=== PATIENT | female | born 1945 | race Caucasian/White ===

== ENCOUNTER 2019-12-25 10:50 | Inpatient (IN) | payer MEDICARE, BC ==
[~2019-12-25] VITALS: Ht 162.6 cm; Wt 59.0 kg
[2019-12-25 10:52] VITALS: BP 95/63
[2019-12-25 11:37] LABS: APPEARANCE,URINE SLIGHTLY CLOUDY; BILIRUBIN, URINE NEGATIVE (NEGATIVE); GLUCOSE, URINE (UA) NEGATIVE (NEGATIVE); KETONES,URINE 2+ (NEGATIVE); LEUKOCYTE ESTERASE ,URINE 2+ (NEGATIVE); NITRITE,URINE NEGATIVE (NEGATIVE); PH,URINE 7 (4.5-8.0); PROTEIN,URINE 2+ (NEGATIVE); UROBILINOGEN,URINE NORMAL MG/DL (0.0-1.0)
[2019-12-25 11:39] LABS: HEMATOCRIT 40.1 % (37.0-47.0); MEAN CORPUSCULAR VOLUME 92 FL (80-99); PLATELET COUNT 112 K/UL (150-450); RED BLOOD COUNT 4.37 M/UL (4.20-5.40); RED CELL DISTRIBUTION WIDTH 12.1 % (11.6-14.8)
[2019-12-25] MEDS ORDERED: TRAZODONE HCL50 MG ORAL (11:40)
[2019-12-25] MEDS ORDERED: QUETIAPINE FUMA50 MG ORAL (11:40)
[2019-12-25] MEDS ORDERED: TYLENOL EXTRA500 MG ORAL (11:40)
[2019-12-25] MEDS ORDERED: Acetaminophen 650 MG SUPP RECTAL ONE ×2 (11:41→11:45)
[2019-12-25 11:48] LABS: ANION GAP 11 mmol/L (5-15); BLOOD UREA NITROGEN 14 mg/dL (7-18); CALCIUM 9.4 MG/DL (8.5-10.1); CARBON DIOXIDE 27 MMOL/L (21-32); CHLORIDE 105 MMOL/L (98-107); CREATININE 0.8 MG/DL (0.55-1.30); POTASSIUM 3.5 MMOL/L (3.5-5.1); SODIUM 143 MMOL/L (136-145)
[2019-12-25 11:53] LABS: COLOR,URINE YELLOW
[2019-12-25] MEDS ORDERED: cefTRIAXone 2 GM in NS 55 ML IVPB ONE (12:00)
[2019-12-25] MEDS ORDERED: Azithromycin 500 MG in NS 275 ML IV ONE (12:00)
[2019-12-25 12:03] LABS: ALANINE AMINOTRANSFERASE 15 U/L (12-78); ALBUMIN 3.4 G/DL (3.4-5.0); ALBUMIN/GLOBULIN RATIO 1.2 (1.0-2.7); ALKALINE PHOSPHATASE 96 U/L (46-116); ASPARTATE AMINO TRANSFERASE 21 U/L (15-37); BILIRUBIN,TOTAL 1.1 MG/DL (0.2-1.0)
[2019-12-25 12:06] LABS: BILIRUBIN,DIRECT 0.3 MG/DL (0.0-0.3)
--- NOTE | 2019-12-25 12:37 | Diagnostic Imaging Report ---
FILM CXR 1 VIEW HISTORY: Cough TECHNIQUE: 1 view chest COMPARISON: None FINDINGS: Normal heart size. Tortuous thoracic aorta. Degenerative changes of the spine and shoulders. Mild bilateral lower lobe opacities. No effusion or pneumothorax. No fractures appreciated. IMPRESSION: Bilateral lower lobe atelectasis versus infiltrate.
[2019-12-25 12:40] VITALS: BP 112/78
--- NOTE | 2019-12-25 13:03 | Diagnostic Imaging Report ---
CT HEAD Without Contrast HISTORY: Altered mental status alteration of consciousness TECHNIQUE: One or more of the following dose reduction techniques were used: automated exposure control, adjustment of the mA and/or kV according to patient size, use of iterative reconstruction technique. One or more of the following dose reduction techniques were used: automated exposure control, adjustment of the mA and/or kV according to patient size, use of iterative reconstruction technique. Total Exam volume computed tomography dose index (CTDIvol) = 53.4 mGy and Dose Length Product (DLP) = 1045.5 mGY-c TECHNIQUE: Multiple, contiguous 2.5 mm axial cuts of the brain are obtained from the posterior fossa to the cranial vault. Coronal reformatted images provided. No IV contrast is administered. COMPARISON:none FINDINGS: No intracranial hemorrhage, abnormal intra- or extra-axial collections or parenchymal lesions are seen. There are involutional changes with prominence of the sulci, basal cisterns and ventricles. Scattered white matter hypoattenuations are present, likely from small vessel disease. The goldstein-white differentiation is preserved. No evidence of mass effect, midline shift, or edema. The osseous structures are unremarkable. The visualized portions of the paranasal sinuses are clear. IMPRESSION: 1. No acute intracranial process. 2. Involutional changes with small vessel disease.
[2019-12-25] MEDS: Ipratropium 0.02% Inh Soln 2.5ml UD HHN SCH ×2 (13:20→13:21)
[2019-12-25] MEDS: Albuterol ud Inhalation HHN SCH ×2 (13:20→13:21)
[2019-12-25 13:36] VITALS: BP 122/75
--- NOTE | 2019-12-25 14:02 | Emergency Room Report ---
History of Present Illness General Chief Complaint: Altered Mental Status Source: EMS Present Illness HPI Patient presents emergency department today with acute altered mental status. Patient stays at the [facility]. According to registration Dr. Love is not on staff at [facility]. Dr. Mcclelland is the preferred hospitalist for [facility]. Patient was noted to be a ltered today. Patient has had a fever on arrival. Patient was unable to provide any history. History was obtained for what ever medical records we have. According to the transfer paperwork patient does have a history of Alzheimer's disease. No other complaints were noted. Symptoms noted to be severe. No other modifying factors. No other associated signs and symptoms. No other complaints were noted. Allergies: Coded Allergies: No Known Allergies (Unverified , 12/25/19) COVID-19 Screening Contact w/high risk pt: No Recent Travel to affected area: No Experienced COVID-19 symptoms?: No COVID-19 Testing performed PATENT LITIGATION ASSOCIATE: No Patient History Past Medical History: other - Alzheimer's disease, depression, anxiety Past Surgical History: unable to obtain Pertinent Family History: unable to obtain Social History Narrative Stays at an assisted living facility. Reviewed Nursing Documentation: PMH: Agreed; PSxH: Agreed Nursing Documentation-PMH Past Medical History: No History, Except For Hx Cardiac Problems: No - OTHER HX NOT AVAILABLE Hx Gastrointestinal Problems: No - hyperlipidemia, hypothyroidism Hx Neurological Problems: Yes - Alzheimers, anxiety, depression Review of Systems All Other Systems: limited - Due to patient's poor mental status Physical Exam Vital Signs Date Time Temp Pulse Resp B/P (MAP) Pulse Ox O2 Delivery O2 Flow Rate FiO2 12/25/19 10:42 99.0 92 16 95/63 (74) 96 Room Air Sp02 EP Interpretation: reviewed, normal General Appearance: alert, moderate distress - Confused, thin Head: atraumatic Eyes: bilateral eye normal inspection ENT: normal ENT inspection, moist mucus membranes Neck: normal inspection, supple Respiratory: normal inspection, decreased breath sounds, crackles - Basilar Cardiovascular #1: regular rate, rhythm, no edema Gastrointestinal: normal inspection, normal bowel sounds, soft Genitourinary: no CVA tenderness Musculoskeletal: normal inspection, normal range of motion Neurologic: alert, other - Grossly nonfocal but unable to fully assess due to patient's poor mental status Psychiatric: anxious Skin: no rash Medical Decision Making Diagnostic Impression: Primary Impression: Altered mental status Additional Impression: Sepsis ER Course Patient presents emergency department today with acute altered mental status. Differential considerations includes sepsis, pneumonia, UTI, electro abnormality, CVA just name a few. Given the severity of the patient's presentation I felt this is a highly complex patient. This patient required extensive workup. Patient laboratory work-up shows evidence of a UTI. Chest x-ray is questionable for pneumonia. Given patient presentation I felt that this could be contributing patient's altered mental status patient was started on broad- spectrum IV antibiotics and blood culture was obtained. Patient's lactic acid level was less than 2 therefore there is no evidence of severe sepsis organ failure. We will continue to monitor patient. Patient had a head CT was noted be negative by radiology. Case was discussed with Dr. Mcclelland for admission. Patient will be admitted for further management. Labs Test 12/25/19 11:10 White Blood Count 10.0 K/UL (4.8-10.8) Red Blood Count 4.37 M/UL (4.20-5.40) Hemoglobin 14.0 G/DL (12.0-16.0) Hematocrit 40.1 % (37.0-47.0) Mean Corpuscular Volume 92 FL (80-99) Mean Corpuscular Hemoglobin 31.9 PG (27.0-31.0) Mean Corpuscular Hemoglobin Concent 34.8 G/DL (32.0-36.0) Red Cell Distribution Width 12.1 % (11.6-14.8) Platelet Count 112 K/UL (150-450) Mean Platelet Volume 8.1 FL (6.5-10.1) Neutrophils (%) (Auto) % (45.0-75.0) Lymphocytes (%) (Auto) % (20.0-45.0) Monocytes (%) (Auto) % (1.0-10.0) Eosinophils (%) (Auto) % (0.0-3.0) Basophils (%) (Auto) % (0.0-2.0) Differential Total Cells Counted 100 Neutrophils % (Manual) 84 % (45-75) Lymphocytes % (Manual) 9 % (20-45) Monocytes % (Manual) 7 % (1-10) Eosinophils % (Manual) 0 % (0-3) Basophils % (Manual) 0 % (0-2) Band Neutrophils 0 % (0-8) Platelet Estimate Decreased Platelet Morphology Normal Red Blood Cell Morphology Normal Urine Color Yellow Urine Appearance Slightly cloudy Urine pH 7 (4.5-8.0) Urine Specific Lyle 1.010 (1.005-1.035) Urine Protein 2+ (NEGATIVE) Urine Glucose (UA) Negative (NEGATIVE) Urine Ketones 2+ (NEGATIVE) Urine Blood 5+ (NEGATIVE) Urine Nitrite Negative (NEGATIVE) Urine Bilirubin Negative (NEGATIVE) Urine Urobilinogen Normal MG/DL (0.0-1.0) Urine Leukocyte Esterase 2+ (NEGATIVE) Urine RBC 15-20 /HPF (0 - 2) Urine WBC 30-40 /HPF (0 - 2) Urine Squamous Epithelial Cells Moderate /LPF (NONE/OCC) Urine Transitional Epithelial Cells /LPF (NONE) Urine Calcium Oxalate Crystals Few /LPF (NONE) Urine Bacteria Few /HPF (NONE) Sodium Level 143 MMOL/L (136-145) Potassium Level 3.5 MMOL/L (3.5-5.1) Chloride Level 105 MMOL/L (98-107) Carbon Dioxide Level 27 MMOL/L (21-32) Anion Gap 11 mmol/L (5-15) Blood Urea Nitrogen 14 mg/dL (7-18) Creatinine 0.8 MG/DL (0.55-1.30) Estimat Glomerular Filtration Rate > 60 mL/min (>60) Glucose Level 101 MG/DL (74-106) Lactic Acid Level 1.30 mmol/L (0.4-2.0) Calcium Level 9.4 MG/DL (8.5-10.1) Total Bilirubin 1.1 MG/DL (0.2-1.0) Direct Bilirubin 0.3 MG/DL (0.0-0.3) Aspartate Amino Transf (AST/SGOT) 21 U/L (15-37) Alanine Aminotransferase (ALT/SGPT) 15 U/L (12-78) Alkaline Phosphatase 96 U/L (46-116) Troponin I 0.000 ng/mL (0.000-0.056) Pro-B-Type Natriuretic Peptide 1027 pg/mL (0-125) Total Protein 6.2 G/DL (6.4-8.2) Albumin 3.4 G/DL (3.4-5.0) Globulin 2.8 g/dL Albumin/Globulin Ratio 1.2 (1.0-2.7) Lipase 60 U/L (73-393) EKG Diagnostic Results Troponin ordered: Yes Rate: normal, other - 90s Rhythm: NSR ST Segments: no acute changes Rhythm Strip Diag. Results EP Interpretation: yes Rate: 90s Rhythm: NSR, no PVC's, no ectopy Chest X-Ray Diagnostic Results Chest X-Ray Diagnostic Results : Chest X-Ray Ordered: Yes # of Views/Limited/Complete: 1 View Indication: Shortness of Breath EP Interpretation: Yes Interpretation: no effusion, no pneumothorax, other - Basilar infiltrates Impression: Other - Early pneumonia Electronically Signed by: Electronically signed by Demian Dimas MD CT/MRI/US Diagnostic Results CT/MRI/US Diagnostic Results : Imaging Test Ordered: Head CT: Negative per radiology Last Vital Signs Date Time Temp Pulse Resp B/P (MAP) Pulse Ox O2 Delivery O2 Flow Rate FiO2 12/25/19 13:36 100.0 82 15 122/75 100 Room Air Status: improved Disposition: ADMITTED INPATIENT Condition: Serious Referrals: NON PHYSICIAN (PCP) Demian Dimas MD Dec 25, 2019 14:02
[2019-12-25 16:00] VITALS: BP 110/55
[2019-12-25] MEDS ORDERED: Albuterol/Ipratropium 3ml neb HHN PRN (16:30)
[2019-12-25] MEDS ORDERED: Miralax 17gm pkt ORAL PRN (16:30)
[2019-12-25] MEDS ORDERED: ATORVASTATIN CA40 MG ORAL (16:51)
[2019-12-25] MEDS ORDERED: LEXAPRO10 MG ORAL (16:51)
[2019-12-25] MEDS ORDERED: SYNTHROID25 MCG ORAL (16:52)
[2019-12-25] MEDS ORDERED: GABAPENTIN100 MG ORAL (16:52)
[2019-12-25] MEDS ORDERED: NAMENDA10 MG ORAL (16:54)
[2019-12-25] MEDS ORDERED: EXELON9.5 MG TD (16:56)
[2019-12-25] MEDS ORDERED: SENNA8.6 M2 PO (16:56)
[2019-12-25] MEDS ORDERED: TRAMADOL HCL50 MG ORAL (16:58)
[2019-12-25] MEDS: Vancomycin 1 GM in NS 275 ML IVPB SCH (18:23)
[2019-12-25 20:00] VITALS: BP 105/85
[2019-12-25] MEDS: TraZODone HCl 25 mg tablet ORAL SCH (21:29)
[2019-12-25] MEDS: Cefepime HCl 1 GM in D5W 55 ML IVPB SCH (21:31)
[2019-12-26] VITALS: BP 105/85
[2019-12-26 04:00] VITALS: BP 149/52
[2019-12-26 08:00] VITALS: BP 112/55
[2019-12-26] MEDS: Cefepime HCl 1 GM in D5W 55 ML IVPB SCH ×2 (08:20→23:04)
[2019-12-26] MEDS ORDERED: Varibar Nectar 240ml MC PRN (08:30)
[2019-12-26] MEDS ORDERED: Varibar Honey 250ml MC PRN (08:30)
[2019-12-26] MEDS ORDERED: Varibar Pudding 230ml MC PRN (08:30)
[2019-12-26] MEDS ORDERED: Varibar Thin Liquid powder 148gm MC PRN (08:30)
[2019-12-26 10:05] LABS: HEMATOCRIT 41.6 % (37.0-47.0); MEAN CORPUSCULAR VOLUME 93 FL (80-99); PLATELET COUNT 112 K/UL (150-450); RED BLOOD COUNT 4.48 M/UL (4.20-5.40); RED CELL DISTRIBUTION WIDTH 11.7 % (11.6-14.8); WHITE BLOOD COUNT 9.3 K/UL (4.8-10.8)
[2019-12-26 10:35] LABS: ALANINE AMINOTRANSFERASE 14 U/L (12-78); ALBUMIN 3.1 G/DL (3.4-5.0); ALBUMIN/GLOBULIN RATIO 0.9 (1.0-2.7); ALKALINE PHOSPHATASE 83 U/L (46-116); ANION GAP 13 mmol/L (5-15); ASPARTATE AMINO TRANSFERASE 19 U/L (15-37); BILIRUBIN,TOTAL 1.5 MG/DL (0.2-1.0); BLOOD UREA NITROGEN 19 mg/dL (7-18); CALCIUM 9.2 MG/DL (8.5-10.1); CARBON DIOXIDE 24 MMOL/L (21-32); CHLORIDE 108 MMOL/L (98-107); CREATININE 0.9 MG/DL (0.55-1.30); POTASSIUM 3.3 MMOL/L (3.5-5.1); SODIUM 145 MMOL/L (136-145)
[2019-12-26 10:36] LABS: BILIRUBIN,DIRECT 0.3 MG/DL (0.0-0.3)
--- NOTE | 2019-12-26 11:22 | History and Physical ---
History of Present Illness General Date patient seen: Dec 26, 2019 Reason for Hospitalization: Altered Mental Status Present Illness HPI 74 year old female with hx of Alzheimer's, Depression, anxiety presented to emergency department today with acute altered mental status. .Patient has had a fever on arrival in ER. She was unable to provide any history. No other complaints were noted. She is admitted to telemetry for further management. Allergies: Coded Allergies: No Known Allergies (Unverified , 12/25/19) COVID-19 Screening Contact w/high risk pt: No Recent Travel to affected area: No Experienced COVID-19 symptoms?: No Medication History Scheduled Atorvastatin Calcium* (Atorvastatin Calcium*), 40 MG ORAL BEDTIME, (Reported) Escitalopram Oxalate* (Lexapro*), 10 MG ORAL DAILY, (Reported) Gabapentin* (Gabapentin*), 100 MG ORAL THREE TIMES A DAY, (Reported) Levothyroxine Sodium* (Synthroid*), 50 MCG ORAL HS, (Reported) Memantine Hcl* (Namenda*), 10 MG ORAL DAILY, (Reported) Quetiapine Fumarate* (Quetiapine Fumarate*), 25 MG ORAL DAILY, (Reported) Rivastigmine Tartrate (Exelon), 13.3 MG TD DAILY, (Reported) Sennosides (Senna), 8.6 MG PO HS, (Reported) Tramadol Hcl* (Ultram*), 50 MG ORAL TWICE A DAY, (Reported) Trazodone Hcl* (Desyrel*), 25 MG ORAL BEDTIME, (Reported) Scheduled PRN Acetaminophen* (Tylenol Extra Strength*), 500 MG ORAL Q6H PRN for fever, (Reported) Patient History Healthcare decision maker Resuscitation status Advanced Directive on File Yes Past Medical/Surgical History Past Medical/Surgical History: (1) Alzheimer's dementia (2) Depression (3) Anxiety (4) Poor historian Review of Systems All Other Systems: negative except mentioned in HPI Physical Exam General Appearance: cachetic, thin Lines, tubes and drains: peripheral HEENT: normocephalic, atraumatic, anicteric, mucous membranes moist, PERRL Neck: non-tender, normal alignment, supple, normal inspection Respiratory/Chest: chest wall non-tender, lungs clear, normal breath sounds, no respiratory distress Breasts: no masses Cardiovascular/Chest: normal peripheral pulses, normal rate, regular rhythm Abdomen: normal bowel sounds, non tender, soft Genitourinary/Rectal: normal genital exam Extremities: normal range of motion, non-tender Neurologic: tumbler plater II-XII grossly normal Last 24 Hour Vital Signs Date Time Temp Pulse Resp B/P (MAP) Pulse Ox O2 Delivery O2 Flow Rate FiO2 12/26/19 09:00 Room Air 12/26/19 08:00 100.2 95 18 112/55 (74) 96 12/26/19 08:00 94 12/26/19 05:30 100.8 12/26/19 04:00 85 12/26/19 04:00 101.8 90 24 149/52 (84) 93 12/26/19 00:00 99.1 86 24 105/85 (92) 96 12/26/19 00:00 80 12/25/19 21:00 Room Air 12/25/19 20:00 85 12/25/19 20:00 98.8 84 22 105/85 (92) 97 12/25/19 19:27 85 20 96 Room Air 21 12/25/19 17:01 Room Air 12/25/19 16:00 98.1 101 18 110/55 (73) 98 12/25/19 16:00 89 12/25/19 14:28 100.0 86 19 118/73 97 Room Air 12/25/19 13:51 101 18 100 Room Air 21 82 18 95 12/25/19 13:36 100.0 82 15 122/75 100 Room Air 12/25/19 13:35 100.0 12/25/19 12:40 87 16 112/78 99 Room Air Intake and Output 12/25/19 12/26/19 19:00 07:00 Intake Total 330 ml Balance 330 ml Intake IV Total 330 ml # Voids 1 2 Laboratory Tests Test 12/26/19 09:25 White Blood Count 9.3 K/UL (4.8-10.8) Red Blood Count 4.48 M/UL (4.20-5.40) Hemoglobin 14.0 G/DL (12.0-16.0) Hematocrit 41.6 % (37.0-47.0) Mean Corpuscular Volume 93 FL (80-99) Mean Corpuscular Hemoglobin 31.2 PG (27.0-31.0) H Mean Corpuscular Hemoglobin Concent 33.5 G/DL (32.0-36.0) Red Cell Distribution Width 11.7 % (11.6-14.8) Platelet Count 112 K/UL (150-450) L Mean Platelet Volume 8.1 FL (6.5-10.1) Neutrophils (%) (Auto) % (45.0-75.0) Lymphocytes (%) (Auto) % (20.0-45.0) Monocytes (%) (Auto) % (1.0-10.0) Eosinophils (%) (Auto) % (0.0-3.0) Basophils (%) (Auto) % (0.0-2.0) Differential Total Cells Counted 100 Neutrophils % (Manual) 70 % (45-75) Lymphocytes % (Manual) 7 % (20-45) L Monocytes % (Manual) 7 % (1-10) Eosinophils % (Manual) 0 % (0-3) Basophils % (Manual) 0 % (0-2) Band Neutrophils 16 % (0-8) H Platelet Estimate Decreased L Platelet Morphology Normal Sodium Level 145 MMOL/L (136-145) Potassium Level 3.3 MMOL/L (3.5-5.1) L Chloride Level 108 MMOL/L (98-107) H Carbon Dioxide Level 24 MMOL/L (21-32) Anion Gap 13 mmol/L (5-15) Blood Urea Nitrogen 19 mg/dL (7-18) H Creatinine 0.9 MG/DL (0.55-1.30) Estimat Glomerular Filtration Rate > 60 mL/min (>60) Glucose Level 117 MG/DL (74-106) H Calcium Level 9.2 MG/DL (8.5-10.1) Total Bilirubin 1.5 MG/DL (0.2-1.0) H Direct Bilirubin 0.3 MG/DL (0.0-0.3) Aspartate Amino Transf (AST/SGOT) 19 U/L (15-37) Alanine Aminotransferase (ALT/SGPT) 14 U/L (12-78) Alkaline Phosphatase 83 U/L (46-116) Total Protein 6.4 G/DL (6.4-8.2) Albumin 3.1 G/DL (3.4-5.0) L Globulin 3.3 g/dL Albumin/Globulin Ratio 0.9 (1.0-2.7) L Microbiology Date/Time Source Procedure Growth Status 12/25/19 11:45 Nasal Nares - Final Complete 12/25/19 11:45 Nasal Nares - Final Complete 12/25/19 11:20 Rectum Received Height (Feet): 5 Height (Inches): 4.00 Weight (Pounds): 130 Medications Current Medications Medications (Trade) Dose Ordered Sig/Kimberley Route PRN Reason Start Time Stop Time Status Last Admin Dose Admin Acetaminophen (Tylenol) 650 mg Q4H PRN ORAL fever 12/25/19 16:30 01/24/20 16:29 12/26/19 04:48 Albuterol/ Ipratropium (Albuterol/ Ipratropium) 3 ml Q4H PRN HHN Shortness of Breath 12/25/19 16:30 12/30/19 16:29 Barium Sulfate (Varibar Honey) 250 ml NOW PRN MC RAD 12/26/19 08:30 12/29/19 08:22 Barium Sulfate (Varibar [place]) 240 ml NOW PRN MC RAD 12/26/19 08:30 12/29/19 08:22 Barium Sulfate (Varibar Pudding) 230 ml NOW PRN MC RAD 12/26/19 08:30 12/29/19 08:22 Barium Sulfate (Varibar Thin Liquid powder) 148 gm NOW PRN MC RAD 12/26/19 08:30 12/29/19 08:22 Cefepime HCl 1 gm/ Dextrose 55 ml @ 110 mls/hr EVERY 12 HOURS IVPB 12/25/19 21:00 01/01/20 20:59 12/26/19 08:20 Heparin Sodium (Porcine) (Heparin 5000 units/ml) 5,000 units EVERY 12 HOURS SUBQ 12/26/19 09:00 02/09/20 08:59 Ondansetron HCl (Zofran) 4 mg Q6H PRN IVP Nausea & Vomiting 12/25/19 16:30 01/24/20 16:29 Polyethylene Glycol (Miralax) 17 gm DAILYPRN PRN ORAL Constipation 12/25/19 16:30 01/24/20 16:29 Quetiapine Fumarate (SEROqueL) 25 mg DAILY ORAL 12/26/19 09:00 02/09/20 08:59 12/26/19 09:18 Temazepam (Restoril) 15 mg HSPRN PRN ORAL Insomnia 12/25/19 16:30 01/01/20 16:29 Trazodone HCl (Desyrel) 25 mg BEDTIME ORAL 12/25/19 21:00 01/24/20 20:59 12/25/19 21:29 Vancomycin HCl (Vanco pharmacy to dose) 1 ea DAILY PRN MISC per RX protocol 12/26/19 09:30 01/25/20 09:29 Vancomycin HCl 1 gm/Sodium Chloride 275 ml @ 183.299 mls/hr Q24H IVPB 12/25/19 18:00 12/30/19 17:59 12/25/19 18:23 Assessment/Plan Problem List: (1) Altered mental status ICD Codes: R41.82 - Altered mental status, unspecified SNOMED: 444245724 (2) Sepsis ICD Codes: A41.9 - Sepsis, unspecified organism SNOMED: 19848460 (3) Anxiety ICD Codes: F41.9 - Anxiety disorder, unspecified SNOMED: 01430286 (4) Depression ICD Codes: F32.9 - Major depressive disorder, single episode, unspecified SNOMED: 50990836 (5) Alzheimer's dementia ICD Codes: G30.9 - Alzheimer's disease, unspecified; F02.80 - Dementia in other diseases classified elsewhere without behavioral disturbance SNOMED: 75824801 (6) Poor historian ICD Codes: Z78.9 - Other specified health status SNOMED: 346395458 Assessment/Plan: NPO iv fluids andujar culture iv abx ID evaluation check electrolytes symptomatic treatment swallow evaluation. dvt prophylaxis. Ck Mcclelland MD Dec 26, 2019 11:22
[2019-12-26 12:00] VITALS: BP 141/68
[2019-12-26] MEDS: Heparin 5000 units/ml inj SUBQ SCH ×2 (12:26→20:37)
[2019-12-26] MEDS: Potassium Chloride 10 MEQ in D5 1/2NS 1,000 ML IV SCH (14:15)
--- NOTE | 2019-12-26 15:04 | Consultation ---
History of Present Illness General Date patient seen: Dec 26, 2019 Chief Complaint: Altered Mental Status Present Illness HPI 74 y/o F with hx of Alzheimer' disease, MDD, HLD, hypothyroidism, anxiety disorder, SNF resident ([facility]) presented to ED on 12/24 with altered mental status, fever Allergies: Coded Allergies: No Known Allergies (Unverified , 12/25/19) Medication History Scheduled Atorvastatin Calcium* (Atorvastatin Calcium*), 40 MG ORAL BEDTIME, (Reported) Escitalopram Oxalate* (Lexapro*), 10 MG ORAL DAILY, (Reported) Gabapentin* (Gabapentin*), 100 MG ORAL THREE TIMES A DAY, (Reported) Levothyroxine Sodium* (Synthroid*), 50 MCG ORAL HS, (Reported) Memantine Hcl* (Namenda*), 10 MG ORAL DAILY, (Reported) Quetiapine Fumarate* (Quetiapine Fumarate*), 25 MG ORAL DAILY, (Reported) Rivastigmine Tartrate (Exelon), 13.3 MG TD DAILY, (Reported) Sennosides (Senna), 8.6 MG PO HS, (Reported) Tramadol Hcl* (Ultram*), 50 MG ORAL TWICE A DAY, (Reported) Trazodone Hcl* (Desyrel*), 25 MG ORAL BEDTIME, (Reported) Scheduled PRN Acetaminophen* (Tylenol Extra Strength*), 500 MG ORAL Q6H PRN for fever, (Reported) Patient History Healthcare decision maker Resuscitation status Advanced Directive on File Yes Patient History Narrative Pmhx: as above Shx: reviewed Fhx: non contributory Review of Systems All Other Systems: negative except mentioned in HPI Physical Exam Physical Exam Narrative General Appearance: alert, moderate distress - Confused, thin Head: atraumatic Eyes: bilateral eye normal inspection ENT: normal ENT inspection, moist mucus membranes Neck: normal inspection, supple Respiratory: normal inspection, decreased breath sounds, crackles - Basilar Cardiovascular #1: regular rate, rhythm, no edema Gastrointestinal: normal inspection, normal bowel sounds, soft Genitourinary: no CVA tenderness Musculoskeletal: normal inspection, normal range of motion Neurologic: alert, other - Grossly nonfocal but unable to fully assess due to patient's poor mental status Skin: no rash Last 24 Hour Vital Signs Date Time Temp Pulse Resp B/P (MAP) Pulse Ox O2 Delivery O2 Flow Rate FiO2 12/26/19 12:00 91 12/26/19 12:00 99.7 94 18 141/68 (92) 95 12/26/19 09:00 Room Air 12/26/19 08:00 100.2 95 18 112/55 (74) 96 12/26/19 08:00 94 12/26/19 05:30 100.8 12/26/19 04:00 85 12/26/19 04:00 101.8 90 24 149/52 (84) 93 12/26/19 00:00 99.1 86 24 105/85 (92) 96 12/26/19 00:00 80 12/25/19 21:00 Room Air 12/25/19 20:00 85 12/25/19 20:00 98.8 84 22 105/85 (92) 97 12/25/19 19:27 85 20 96 Room Air 21 12/25/19 17:01 Room Air 12/25/19 16:00 98.1 101 18 110/55 (73) 98 12/25/19 16:00 89 Intake and Output 12/25/19 12/26/19 19:00 07:00 Intake Total 330 ml Balance 330 ml Intake IV Total 330 ml # Voids 1 2 Laboratory Tests Test 12/26/19 09:25 White Blood Count 9.3 K/UL (4.8-10.8) Red Blood Count 4.48 M/UL (4.20-5.40) Hemoglobin 14.0 G/DL (12.0-16.0) Hematocrit 41.6 % (37.0-47.0) Mean Corpuscular Volume 93 FL (80-99) Mean Corpuscular Hemoglobin 31.2 PG (27.0-31.0) H Mean Corpuscular Hemoglobin Concent 33.5 G/DL (32.0-36.0) Red Cell Distribution Width 11.7 % (11.6-14.8) Platelet Count 112 K/UL (150-450) L Mean Platelet Volume 8.1 FL (6.5-10.1) Neutrophils (%) (Auto) % (45.0-75.0) Lymphocytes (%) (Auto) % (20.0-45.0) Monocytes (%) (Auto) % (1.0-10.0) Eosinophils (%) (Auto) % (0.0-3.0) Basophils (%) (Auto) % (0.0-2.0) Differential Total Cells Counted 100 Neutrophils % (Manual) 70 % (45-75) Lymphocytes % (Manual) 7 % (20-45) L Monocytes % (Manual) 7 % (1-10) Eosinophils % (Manual) 0 % (0-3) Basophils % (Manual) 0 % (0-2) Band Neutrophils 16 % (0-8) H Platelet Estimate Decreased L Platelet Morphology Normal Sodium Level 145 MMOL/L (136-145) Potassium Level 3.3 MMOL/L (3.5-5.1) L Chloride Level 108 MMOL/L (98-107) H Carbon Dioxide Level 24 MMOL/L (21-32) Anion Gap 13 mmol/L (5-15) Blood Urea Nitrogen 19 mg/dL (7-18) H Creatinine 0.9 MG/DL (0.55-1.30) Estimat Glomerular Filtration Rate > 60 mL/min (>60) Glucose Level 117 MG/DL (74-106) H Calcium Level 9.2 MG/DL (8.5-10.1) Total Bilirubin 1.5 MG/DL (0.2-1.0) H Direct Bilirubin 0.3 MG/DL (0.0-0.3) Aspartate Amino Transf (AST/SGOT) 19 U/L (15-37) Alanine Aminotransferase (ALT/SGPT) 14 U/L (12-78) Alkaline Phosphatase 83 U/L (46-116) Total Protein 6.4 G/DL (6.4-8.2) Albumin 3.1 G/DL (3.4-5.0) L Globulin 3.3 g/dL Albumin/Globulin Ratio 0.9 (1.0-2.7) L Height (Feet): 5 Height (Inches): 4.00 Weight (Pounds): 130 Medications Current Medications Medications (Trade) Dose Ordered Sig/Kimberley Route PRN Reason Start Time Stop Time Status Last Admin Dose Admin Acetaminophen (Tylenol) 650 mg Q4H PRN ORAL fever 12/25/19 16:30 01/24/20 16:29 12/26/19 04:48 Albuterol/ Ipratropium (Albuterol/ Ipratropium) 3 ml Q4H PRN HHN Shortness of Breath 12/25/19 16:30 12/30/19 16:29 Barium Sulfate (Varibar Honey) 250 ml NOW PRN MC RAD 12/26/19 08:30 12/29/19 08:22 Barium Sulfate (Varibar [place]) 240 ml NOW PRN RAD 12/26/19 08:30 12/29/19 08:22 Barium Sulfate (Varibar Pudding) 230 ml NOW PRN RAD 12/26/19 08:30 12/29/19 08:22 Barium Sulfate (Varibar Thin Liquid powder) 148 gm NOW PRN RAD 12/26/19 08:30 12/29/19 08:22 Cefepime HCl 1 gm/ Dextrose 55 ml @ 110 mls/hr EVERY 12 HOURS IVPB 12/25/19 21:00 01/01/20 20:59 12/26/19 08:20 Heparin Sodium (Porcine) (Heparin 5000 units/ml) 5,000 units EVERY 12 HOURS SUBQ 12/26/19 09:00 02/09/20 08:59 12/26/19 12:26 Ondansetron HCl (Zofran) 4 mg Q6H PRN IVP Nausea & Vomiting 12/25/19 16:30 01/24/20 16:29 Potassium Chloride 10 meq/ Dextrose/Sodium Chloride 1,005 ml @ 50 mls/hr Q20H6M IV 12/26/19 13:00 01/25/20 12:59 12/26/19 14:15 Quetiapine Fumarate (SEROqueL) 25 mg DAILY ORAL 12/26/19 09:00 02/09/20 08:59 12/26/19 09:18 Temazepam (Restoril) 15 mg HSPRN PRN ORAL Insomnia 12/25/19 16:30 01/01/20 16:29 Trazodone HCl (Desyrel) 25 mg BEDTIME ORAL 12/25/19 21:00 01/24/20 20:59 12/25/19 21:29 Vancomycin HCl (Vanco pharmacy to dose) 1 ea DAILY PRN MISC per RX protocol 12/26/19 09:30 01/25/20 09:29 Vancomycin HCl 1 gm/Sodium Chloride 275 ml @ 183.299 mls/hr Q24H IVPB 12/25/19 18:00 12/30/19 17:59 12/25/19 18:23 Assessment/Plan Assessment/Plan: Abx: Ceftriaxone x1 12/24 Azithromycin x1 12/24 IV Vancomycin 12/24- Cefepime 12/24- Assessment: Sepsis UTI Probable PNA- report of bright red blood upon suctioning per RN R/o probable bacteremia -12/24 CXR: Bilateral lower lobe atelectasis versus infiltrate. u/a 30-40, nit neg, leuk +2; ucx p rapid COVID PCR neg Influenza screen neg Fever No leukocytosis Acute encephalopathy -CT head: No acute intracranial process.nvolutional changes with small vessel disease. Alzheimer' disease MDD HLD hypothyroidism anxiety disorder SNF resident ([facility]) Plan: -Continue empiric IV Vancomycin and Cefepime #2 pending cultures -f/u cx -Monitor CBC/CMP, temperatures -CXR am -repeat 2nd covid -CTA Chest Thank you for consulting [facility]. Will continue to follow along with you. Discussed with MARCOS. Aneta Camacho M.D. Dec 26, 2019 15:04
[2019-12-26 16:00] VITALS: BP 118/42
[2019-12-26] MEDS: Acetaminophen 650 MG SUPP RECTAL PRN ×2 (16:20→23:13)
[2019-12-26] MEDS ORDERED: Omnipaque 350 100ml vial INJ PRN (16:45)
[2019-12-26] MEDS ORDERED: Tubing IV Secondary IV ONE (17:22)
[2019-12-26] MEDS ORDERED: NS 275ml ONE (17:22)
[2019-12-26] MEDS ORDERED: VITAMIN D325 MC1 PO (18:02)
[2019-12-26] MEDS ORDERED: VITAMIN D250 MC1 PO (18:02)
[2019-12-26] MEDS ORDERED: QUETIAPINE FUMA25 MG ORAL (18:02)
[2019-12-26] MEDS ORDERED: SYNTHROID50 MCG ORAL (18:02)
[2019-12-26] MEDS ORDERED: LOPERAMIDE2 MG PO (18:02)
[2019-12-26] MEDS ORDERED: METHENAMINE HIPP PO (18:02)
[2019-12-26] MEDS ORDERED: ENSURE LIQUID237 ML PO (18:02)
[2019-12-26] MEDS ORDERED: VOLTAREN100 G1 TP (18:02)
[2019-12-26] MEDS ORDERED: PANTOPRAZOLE SO40 MG ORAL (18:02)
[2019-12-26] MEDS ORDERED: MIRALAX17 G2 ORAL (18:02)
[2019-12-26 20:00] VITALS: BP 146/64
[2019-12-26] MEDS: TraZODone HCl 25 mg tablet ORAL SCH (20:36)
[2019-12-26] MEDS: Vancomycin 1 GM in NS 275 ML IVPB SCH (20:40)
--- NOTE | 2019-12-26 21:10 | Diagnostic Imaging Report ---
EXAM: CT Angiography Chest With Intravenous Contrast CLINICAL HISTORY: BLD TECHNIQUE: Axial computed tomographic angiography images of the chest with intravenous contrast. CTDI is 47.7 mGy and DLP is 153.9 mGy-cm. One or more of the following dose reduction techniques were used: automated exposure control, adjustment of the mA and/or kV according to patient size, use of iterative reconstruction technique. MIP reconstructed images were created and reviewed. COMPARISON: No relevant prior studies available. FINDINGS: Pulmonary arteries: Enhancement is not very robust and there is some motion. No apparent central pulmonary embolus. Aorta: Assessment limited due to pulsation artifact Lungs: Bibasilar consolidation. Irregular opacities/nodular infiltrates in the lingula, right middle and right lower lobes. Pleural space: No effusion. No pneumothorax. Heart: No cardiomegaly. No pericardial effusion. Thyroid: Heterogeneous thyroid gland with possibly small nodule in the right lobe Bones/joints: No acute fracture. Soft tissues: Unremarkable. Lymph nodes: No enlarged lymph nodes. IMPRESSION: 1. Enhancement is not very robust and there is some motion. No apparent central pulmonary embolus. 2. Bibasilar consolidation. Irregular opacities/nodular infiltrates in the lingula, right middle and right lower lobes.
[2019-12-27] VITALS: BP 139/60
[2019-12-27 04:00] VITALS: BP 143/61
[2019-12-27 07:05] LABS: HEMATOCRIT 40.9 % (37.0-47.0); HEMOGLOBIN 13.6 G/DL (12.0-16.0); MEAN CORPUSCULAR VOLUME 95 FL (80-99); PLATELET COUNT 128 K/UL (150-450); RED BLOOD COUNT 4.32 M/UL (4.20-5.40); RED CELL DISTRIBUTION WIDTH 12.2 % (11.6-14.8); WHITE BLOOD COUNT 10.5 K/UL (4.8-10.8)
[2019-12-27 07:47] LABS: ALBUMIN 2.9 G/DL (3.4-5.0); ALBUMIN/GLOBULIN RATIO 0.8 (1.0-2.7); BILIRUBIN,TOTAL 1.5 MG/DL (0.2-1.0); CALCIUM 9.7 MG/DL (8.5-10.1); PHOSPHORUS 2.1 MG/DL (2.5-4.9); POTASSIUM 3.4 MMOL/L (3.5-5.1)
[2019-12-27 07:49] LABS: BILIRUBIN,DIRECT 0.4 MG/DL (0.0-0.3)
[2019-12-27 08:00] VITALS: BP 132/56
[2019-12-27] MEDS: Cefepime HCl 1 GM in D5W 55 ML IVPB SCH ×2 (09:33→21:42)
[2019-12-27] MEDS: Potassium Chloride 10 MEQ in D5 1/2NS 1,000 ML IV SCH (09:37)
[2019-12-27] MEDS: Heparin 5000 units/ml inj SUBQ SCH ×2 (09:37→21:45)
--- NOTE | 2019-12-27 10:11 | Diagnostic Imaging Report ---
Indication: Cough Technique: One view of the chest Comparison: 12/25/2019 Findings: The lungs and pleural spaces are clear. The heart size is normal. Findings are unchanged Impression: No acute process
[2019-12-27 11:02] LABS: APPEARANCE,URINE SLIGHTLY CLOUDY; BILIRUBIN, URINE NEGATIVE (NEGATIVE); COLOR,URINE BROWN; GLUCOSE, URINE (UA) NEGATIVE (NEGATIVE); KETONES,URINE 2+ (NEGATIVE); LEUKOCYTE ESTERASE ,URINE 1+ (NEGATIVE); NITRITE,URINE POSITIVE (NEGATIVE); PH,URINE 5 (4.5-8.0); PROTEIN,URINE 3+ (NEGATIVE); UROBILINOGEN,URINE NORMAL MG/DL (0.0-1.0)
--- NOTE | 2019-12-27 11:26 | Pulmonology Progress Note ---
Subjective ROS Limited/Unobtainable: No Constitutional: Reports: no symptoms HEENT: Repors: no symptoms Respiratory: Reports: no symptoms Allergies: Coded Allergies: MORPHINE (Verified Allergy, Unknown, 12/26/19) Patient's SNF notes morphine allergy in RX list Objective Last 24 Hour Vital Signs Date Time Temp Pulse Resp B/P (MAP) Pulse Ox O2 Delivery O2 Flow Rate FiO2 12/27/19 08:00 99.3 71 20 132/56 (81) 98 12/27/19 07:57 73 12/27/19 04:00 97.9 77 20 143/61 (88) 93 12/27/19 04:00 76 12/27/19 00:00 99.1 77 20 139/60 (86) 92 12/27/19 00:00 86 12/26/19 23:43 99.1 12/26/19 21:00 Room Air 12/26/19 20:34 88 20 96 Room Air 21 12/26/19 20:00 83 12/26/19 20:00 100.6 89 18 146/64 (91) 92 12/26/19 16:50 102.0 12/26/19 16:00 92 12/26/19 16:00 102.2 88 18 118/42 (67) 95 12/26/19 12:00 91 12/26/19 12:00 99.7 94 18 141/68 (92) 95 Intake and Output 12/26/19 12/27/19 19:00 07:00 Output Total 350 ml 400 ml Balance -350 ml -400 ml Output Urine Total 350 ml 400 ml # Bowel Movements 2 2 General Appearance: cachetic HEENT: normocephalic, atraumatic Respiratory: chest wall non-tender, lungs clear, normal breath sounds Breasts: no masses Cardiovascular: normal peripheral pulses Abdomen: normal bowel sounds, soft, non tender Genitourinary: normal external genitalia Extremities: no cyanosis Neurologic: pigment grinder II-XII 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 Complete 12/25/19 11:20 Rectum VRE Culture - Final NO VANCOMYCIN RESISTANT ENTEROCOCCUS ... Complete 12/25/19 11:20 Nasal Nares MRSA Culture - Final NO METHICILLIN RESISTANT STAPH AUREUS... Complete 12/25/19 11:10 Urine,Clean Catch Urine Culture - Preliminary NO GROWTH AFTER 24 HOURS Resulted 12/25/19 11:10 Nasopharynx SARS-CoV-2 RdRp Gene Assay - Final Complete Laboratory Tests 12/27/19 05:35: White Blood Count 10.5, Red Blood Count 4.32, Hemoglobin 13.6, Hematocrit 40.9, Mean Corpuscular Volume 95, Mean Corpuscular Hemoglobin 31.4H, Mean Corpuscular Hemoglobin Concent 33.2, Red Cell Distribution Width 12.2, Platelet Count 128L, Mean Platelet Volume 9.0, Neutrophils (%) (Auto) , Lymphocytes (%) (Auto) , Monocytes (%) (Auto) , Eosinophils (%) (Auto) , Basophils (%) (Auto) , Differential Total Cells Counted 100, Neutrophils % (Manual) 49, Lymphocytes % (Manual) 8L, Monocytes % (Manual) 15H, Eosinophils % (Manual) 0, Basophils % (Manual) 0, Band Neutrophils 28H, Platelet Estimate DecreasedL, Platelet Morphology Normal, Red Blood Cell Morphology Normal, Erythrocyte Sedimentation Rate 45H, Sodium Level 145, Potassium Level 3.4L, Chloride Level 109H, Carbon Dioxide Level 27, Anion Gap 9, Blood Urea Nitrogen 24H, Creatinine 1.0, Estimat Glomerular Filtration Rate 53.9, Glucose Level 107H, Calcium Level 9.7, Phosphorus Level 2.1L, Magnesium Level 1.9, Total Bilirubin 1.5H, Direct Bilirubin 0.4H, Aspartate Amino Transf (AST/SGOT) 25, Alanine Aminotransferase (ALT/SGPT) 8L, Alkaline Phosphatase 88, C-Reactive Protein, Quantitative 26.0H, Total Protein 6.5, Albumin 2.9L, Globulin 3.6, Albumin/Globulin Ratio 0.8L 12/27/19 10:15: Urine Color Brown, Urine Appearance Slightly cloudy, Urine pH 5, Urine Specific [place] 1.015, Urine Protein 3+H, Urine Glucose (UA) Negative, Urine Ketones 2+H , Urine Blood 4+H, Urine Nitrite PositiveH, Urine Bilirubin Negative, Urine Urobilinogen Normal, Urine Leukocyte Esterase 1+H, Urine RBC 2-4H, Urine WBC 0- 2, Urine Squamous Epithelial Cells None, Urine Bacteria ManyH Current Medications Medications (Trade) Dose Ordered Sig/Kimberley Route PRN Reason Start Time Stop Time Status Last Admin Dose Admin Acetaminophen (Tylenol) 650 mg Q4H PRN ORAL fever 12/25/19 16:30 01/24/20 16:29 12/26/19 04:48 Acetaminophen (Tylenol) 650 mg Q4H PRN RECTAL Mild Pain (Pain Scale 1-3) 12/26/19 15:30 01/25/20 15:29 12/26/19 23:13 Albuterol/ Ipratropium (Albuterol/ Ipratropium) 3 ml Q4H PRN HHN Shortness of Breath 12/25/19 16:30 12/30/19 16:29 Barium Sulfate (Varibar Honey) 250 ml NOW PRN MC RAD 12/26/19 08:30 12/29/19 08:22 Barium Sulfate (Varibar [place]) 240 ml NOW PRN MC RAD 12/26/19 08:30 12/29/19 08:22 Barium Sulfate (Varibar Pudding) 230 ml NOW PRN MC RAD 12/26/19 08:30 12/29/19 08:22 Barium Sulfate (Varibar Thin Liquid powder) 148 gm NOW PRN MC RAD 12/26/19 08:30 12/29/19 08:22 Cefepime HCl 1 gm/ Dextrose 55 ml @ 110 mls/hr EVERY 12 HOURS IVPB 12/25/19 21:00 01/01/20 20:59 12/27/19 09:33 Heparin Sodium (Porcine) (Heparin 5000 units/ml) 5,000 units EVERY 12 HOURS SUBQ 12/26/19 09:00 02/09/20 08:59 12/27/19 09:37 Iohexol (Omnipaque 350 100ml) 100 ml NOW PRN INJ Radiology Procedure 12/26/19 16:45 12/28/19 16:44 Ondansetron HCl (Zofran) 4 mg Q6H PRN IVP Nausea & Vomiting 12/25/19 16:30 01/24/20 16:29 Potassium Chloride 10 meq/ Dextrose/Sodium Chloride 1,005 ml @ 50 mls/hr Q20H6M IV 12/26/19 13:00 01/25/20 12:59 12/27/19 09:37 Quetiapine Fumarate (SEROqueL) 25 mg DAILY ORAL 12/26/19 09:00 02/09/20 08:59 12/27/19 09:33 Temazepam (Restoril) 15 mg HSPRN PRN ORAL Insomnia 12/25/19 16:30 01/01/20 16:29 Trazodone HCl (Desyrel) 25 mg BEDTIME ORAL 12/25/19 21:00 01/24/20 20:59 12/25/19 21:29 Vancomycin HCl (Vanco pharmacy to dose) 1 ea DAILY PRN MISC per RX protocol 12/26/19 09:30 01/25/20 09:29 Vancomycin HCl 1 gm/Sodium Chloride 275 ml @ 183.299 mls/hr Q24H IVPB 12/25/19 18:00 12/30/19 17:59 12/26/19 20:40 Assessment/Plan Problems: (1) Altered mental status (2) Sepsis (3) Anxiety (4) Depression (5) Alzheimer's dementia (6) Poor historian Assessment/Plan NPO iv fluids andujar culture iv abx ID evaluation check electrolytes symptomatic treatment swallow evaluation. dvt prophylaxis. d/w son extensively, pt's POLST says no artificial feeding Ck Mcclelland MD Dec 27, 2019 11:25
[2019-12-27 12:00] VITALS: BP 132/61
--- NOTE | 2019-12-27 12:16 | Infectious Diseases Prog Note ---
Assessment/Plan Assessment: Sepsis UTI PNA- report of bright red blood upon suctioning per RN- no PE- l ikely aspiration PNA -12/25 CTA chest: Enhancement is not very robust and there is some motion. No apparent central pulmonary embolus. Bibasilar consolidation. Irregular opacities/nodular infiltrates in the lingula, right middle and right lower lobes. rapid COVID PCR neg R/o probable bacteremia -12/24 CXR: Bilateral lower lobe atelectasis versus infiltrate. u/a 30-40, nit neg, leuk +2; ucx NTD rapid COVID PCR neg Influenza screen neg Bcx p Fever; imporving No leukocytosis Acute encephalopathy -CT head: No acute intracranial process.nvolutional changes with small vessel disease. Alzheimer' disease MDD HLD hypothyroidism anxiety disorder SNF resident (trevor Tos[facility]) Plan: -Continue empiric IV Vancomycin and Cefepime #3 pending cultures -12/24 SP Ceftriaxone x1, Azithromycin x1 -f/u cx -Monitor CBC/CMP, temperatures -sp cx, TB spot -aspiration precautions -DNR/DNI Thank you for consulting [facility]. Will continue to follow along with you. Discussed with RN. Subjective Allergies: Coded Allergies: MORPHINE (Verified Allergy, Unknown, 12/26/19) Patient's SNF notes morphine allergy in RX list Tm 102; afebrile in 12hrs on venturi mask had bright red blood while suctioning yesterday no leukocytosis Objective Last 24 Hour Vital Signs Date Time Temp Pulse Resp B/P (MAP) Pulse Ox O2 Delivery O2 Flow Rate FiO2 12/27/19 08:00 99.3 71 20 132/56 (81) 98 12/27/19 07:57 73 12/27/19 04:00 97.9 77 20 143/61 (88) 93 12/27/19 04:00 76 12/27/19 00:00 99.1 77 20 139/60 (86) 92 12/27/19 00:00 86 12/26/19 23:43 99.1 12/26/19 21:00 Room Air 12/26/19 20:34 88 20 96 Room Air 21 12/26/19 20:00 83 12/26/19 20:00 100.6 89 18 146/64 (91) 92 12/26/19 16:50 102.0 12/26/19 16:00 92 12/26/19 16:00 102.2 88 18 118/42 (67) 95 Height (Feet): 5 Height (Inches): 4.00 Weight (Pounds): 130 General Appearance: alert, moderate distress - Confused, thin Head: atraumatic Eyes: bilateral eye normal inspection ENT: normal ENT inspection, moist mucus membranes Neck: normal inspection, supple Respiratory: normal inspection, decreased breath sounds, crackles - Basilar Cardiovascular #1: regular rate, rhythm, no edema Gastrointestinal: normal inspection, normal bowel sounds, soft Microbiology Date/Time Source Procedure Growth Status 12/26/19 15:30 Nasopharynx SARS-CoV-2 RdRp Gene Assay - Final Complete 12/25/19 11:45 Nasal Nares - Final Complete 12/25/19 11:45 Nasal Nares - Final Complete 12/25/19 11:20 Rectum - Final NO CARBAPENEM-RESISTANT ENTEROBACTERI... Complete 12/25/19 11:20 Rectum VRE Culture - Final NO VANCOMYCIN RESISTANT ENTEROCOCCUS ... Complete 12/25/19 11:20 Nasal Nares MRSA Culture - Final NO METHICILLIN RESISTANT STAPH AUREUS... Complete 12/25/19 11:10 Urine,Clean Catch Urine Culture - Preliminary NO GROWTH AFTER 24 HOURS Resulted 12/25/19 11:10 Nasopharynx SARS-CoV-2 RdRp Gene Assay - Final Complete Laboratory Tests Test 12/27/19 05:35 12/27/19 10:15 White Blood Count 10.5 K/UL (4.8-10.8) Red Blood Count 4.32 M/UL (4.20-5.40) Hemoglobin 13.6 G/DL (12.0-16.0) Hematocrit 40.9 % (37.0-47.0) Mean Corpuscular Volume 95 FL (80-99) Mean Corpuscular Hemoglobin 31.4 PG (27.0-31.0) H Mean Corpuscular Hemoglobin Concent 33.2 G/DL (32.0-36.0) Red Cell Distribution Width 12.2 % (11.6-14.8) Platelet Count 128 K/UL (150-450) L Mean Platelet Volume 9.0 FL (6.5-10.1) Neutrophils (%) (Auto) % (45.0-75.0) Lymphocytes (%) (Auto) % (20.0-45.0) Monocytes (%) (Auto) % (1.0-10.0) Eosinophils (%) (Auto) % (0.0-3.0) Basophils (%) (Auto) % (0.0-2.0) Differential Total Cells Counted 100 Neutrophils % (Manual) 49 % (45-75) Lymphocytes % (Manual) 8 % (20-45) L Monocytes % (Manual) 15 % (1-10) H Eosinophils % (Manual) 0 % (0-3) Basophils % (Manual) 0 % (0-2) Band Neutrophils 28 % (0-8) H Platelet Estimate Decreased L Platelet Morphology Normal Red Blood Cell Morphology Normal Erythrocyte Sedimentation Rate 45 MM/HR (0-30) H Sodium Level 145 MMOL/L (136-145) Potassium Level 3.4 MMOL/L (3.5-5.1) L Chloride Level 109 MMOL/L (98-107) H Carbon Dioxide Level 27 MMOL/L (21-32) Anion Gap 9 mmol/L (5-15) Blood Urea Nitrogen 24 mg/dL (7-18) H Creatinine 1.0 MG/DL (0.55-1.30) Estimat Glomerular Filtration Rate 53.9 mL/min (>60) Glucose Level 107 MG/DL (74-106) H Calcium Level 9.7 MG/DL (8.5-10.1) Phosphorus Level 2.1 MG/DL (2.5-4.9) L Magnesium Level 1.9 MG/DL (1.8-2.4) Total Bilirubin 1.5 MG/DL (0.2-1.0) H Direct Bilirubin 0.4 MG/DL (0.0-0.3) H Aspartate Amino Transf (AST/SGOT) 25 U/L (15-37) Alanine Aminotransferase (ALT/SGPT) 8 U/L (12-78) L Alkaline Phosphatase 88 U/L (46-116) C-Reactive Protein, Quantitative 26.0 mg/dL (0.00-0.90) H Total Protein 6.5 G/DL (6.4-8.2) Albumin 2.9 G/DL (3.4-5.0) L Globulin 3.6 g/dL Albumin/Globulin Ratio 0.8 (1.0-2.7) L Urine Color Brown Urine Appearance Slightly cloudy Urine pH 5 (4.5-8.0) Urine Specific [place] 1.015 (1.005-1.035) Urine Protein 3+ (NEGATIVE) H Urine Glucose (UA) Negative (NEGATIVE) Urine Ketones 2+ (NEGATIVE) H Urine Blood 4+ (NEGATIVE) H Urine Nitrite Positive (NEGATIVE) H Urine Bilirubin Negative (NEGATIVE) Urine Urobilinogen Normal MG/DL (0.0-1.0) Urine Leukocyte Esterase 1+ (NEGATIVE) H Urine RBC 2-4 /HPF (0 - 2) H Urine WBC 0-2 /HPF (0 - 2) Urine Squamous Epithelial Cells None /LPF (NONE/OCC) Urine Bacteria Many /HPF (NONE) H Current Medications Medications (Trade) Dose Ordered Sig/Kimberley Route PRN Reason Start Time Stop Time Status Last Admin Dose Admin Acetaminophen (Tylenol) 650 mg Q4H PRN ORAL fever 12/25/19 16:30 01/24/20 16:29 12/26/19 04:48 Acetaminophen (Tylenol) 650 mg Q4H PRN RECTAL Mild Pain (Pain Scale 1-3) 12/26/19 15:30 01/25/20 15:29 12/26/19 23:13 Albuterol/ Ipratropium (Albuterol/ Ipratropium) 3 ml Q4H PRN HHN Shortness of Breath 12/25/19 16:30 12/30/19 16:29 Barium Sulfate (Varibar Honey) 250 ml NOW PRN MC RAD 12/26/19 08:30 12/29/19 08:22 Barium Sulfate (Varibar [place]) 240 ml NOW PRN MC RAD 12/26/19 08:30 12/29/19 08:22 Barium Sulfate (Varibar Pudding) 230 ml NOW PRN MC RAD 12/26/19 08:30 12/29/19 08:22 Barium Sulfate (Varibar Thin Liquid powder) 148 gm NOW PRN MC RAD 12/26/19 08:30 12/29/19 08:22 Cefepime HCl 1 gm/ Dextrose 55 ml @ 110 mls/hr EVERY 12 HOURS IVPB 12/25/19 21:00 01/01/20 20:59 12/27/19 09:33 Heparin Sodium (Porcine) (Heparin 5000 units/ml) 5,000 units EVERY 12 HOURS SUBQ 12/26/19 09:00 02/09/20 08:59 12/27/19 09:37 Iohexol (Omnipaque 350 100ml) 100 ml NOW PRN INJ Radiology Procedure 12/26/19 16:45 12/28/19 16:44 Ondansetron HCl (Zofran) 4 mg Q6H PRN IVP Nausea & Vomiting 12/25/19 16:30 01/24/20 16:29 Potassium Chloride 10 meq/ Dextrose/Sodium Chloride 1,005 ml @ 50 mls/hr Q20H6M IV 12/26/19 13:00 01/25/20 12:59 12/27/19 09:37 Quetiapine Fumarate (SEROqueL) 25 mg DAILY ORAL 12/26/19 09:00 02/09/20 08:59 12/27/19 09:33 Temazepam (Restoril) 15 mg HSPRN PRN ORAL Insomnia 12/25/19 16:30 01/01/20 16:29 Trazodone HCl (Desyrel) 25 mg BEDTIME ORAL 12/25/19 21:00 01/24/20 20:59 12/25/19 21:29 Vancomycin HCl (Vanco pharmacy to dose) 1 ea DAILY PRN MISC per RX protocol 12/26/19 09:30 01/25/20 09:29 Vancomycin HCl 1 gm/Sodium Chloride 275 ml @ 183.299 mls/hr Q24H IVPB 12/25/19 18:00 12/30/19 17:59 12/26/19 20:40 Aneta Camacho M.D. Dec 27, 2019 12:16
[2019-12-27 16:00] VITALS: BP 134/59
[2019-12-27] MEDS: Acetaminophen 650 MG SUPP RECTAL PRN (16:31)
[2019-12-27] MEDS: Vancomycin 1 GM in NS 275 ML IVPB SCH (17:44)
[2019-12-27] MEDS: Ketorolac 30mg Inj IV PRN (18:10)
[2019-12-27 20:00] VITALS: BP 120/55
[2019-12-27] MEDS: TraZODone HCl 25 mg tablet ORAL SCH (21:42)
[2019-12-27] MEDS ORDERED: LORazepam Inj 2mg/ml 1ml IV PRN (22:00)
[2019-12-28] VITALS: BP 134/67
[2019-12-28 04:00] VITALS: BP 140/65
[2019-12-28] MEDS: Potassium Chloride 10 MEQ in D5 1/2NS 1,000 ML IV SCH (05:05)
[2019-12-28 08:00] VITALS: BP 113/58
[2019-12-28] MEDS: Cefepime HCl 1 GM in D5W 55 ML IVPB SCH ×2 (09:26→20:59)
[2019-12-28] MEDS: Heparin 5000 units/ml inj SUBQ SCH ×2 (09:28→21:08)
[2019-12-28 10:06] LABS: ANION GAP 6 mmol/L (5-15); BLOOD UREA NITROGEN 23 mg/dL (7-18); CALCIUM 9.1 MG/DL (8.5-10.1); CARBON DIOXIDE 28 MMOL/L (21-32); CHLORIDE 112 MMOL/L (98-107); CREATININE 0.8 MG/DL (0.55-1.30); POTASSIUM 3.3 MMOL/L (3.5-5.1); SODIUM 146 MMOL/L (136-145)
[2019-12-28 10:10] LABS: ALANINE AMINOTRANSFERASE 14 U/L (12-78); ALBUMIN 2.4 G/DL (3.4-5.0); ALBUMIN/GLOBULIN RATIO 0.7 (1.0-2.7); ALKALINE PHOSPHATASE 81 U/L (46-116); ASPARTATE AMINO TRANSFERASE 17 U/L (15-37); BILIRUBIN,TOTAL 0.8 MG/DL (0.2-1.0); PHOSPHORUS 1.6 MG/DL (2.5-4.9)
--- NOTE | 2019-12-28 10:57 | Pulmonology Progress Note ---
Subjective ROS Limited/Unobtainable: No Constitutional: Reports: no symptoms HEENT: Repors: no symptoms Respiratory: Reports: no symptoms Allergies: Coded Allergies: MORPHINE (Verified Allergy, Unknown, 12/26/19) Patient's SNF notes morphine allergy in RX list Objective Last 24 Hour Vital Signs Date Time Temp Pulse Resp B/P (MAP) Pulse Ox O2 Delivery O2 Flow Rate FiO2 12/28/19 09:52 Venturi Mask 10.0 12/28/19 08:09 68 19 98 Venturi Mask 10.0 50 12/28/19 08:00 97.7 58 19 113/58 (76) 95 12/28/19 06:02 76 20 136/76 99 12/28/19 05:32 79 20 145/88 96 12/28/19 04:00 97.7 79 20 140/65 (90) 96 12/28/19 00:00 97.5 70 21 134/67 (89) 98 12/27/19 21:00 Venturi Mask 10.0 12/27/19 20:00 97.0 67 22 120/55 (76) 97 12/27/19 17:01 100.8 12/27/19 16:00 102.6 84 20 134/59 (84) 96 12/27/19 15:47 76 12/27/19 12:00 99.7 76 20 132/61 (84) 97 12/27/19 11:36 74 Intake and Output 12/27/19 12/28/19 19:00 07:00 Intake Total 733.299 ml 91.701 ml Balance 733.299 ml 91.701 ml Intake IV Total 733.299 ml 91.701 ml # Voids 2 2 # Bowel Movements 1 1 General Appearance: cachetic HEENT: normocephalic, atraumatic Respiratory: chest wall non-tender, lungs clear, normal breath sounds Breasts: no masses Cardiovascular: normal peripheral pulses Abdomen: normal bowel sounds, soft, non tender Genitourinary: normal external genitalia Extremities: no cyanosis Neurologic: ironmolder II-XII 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 Complete 12/25/19 11:20 Rectum VRE Culture - Final NO VANCOMYCIN RESISTANT ENTEROCOCCUS ... Complete 12/25/19 11:20 Nasal Nares MRSA Culture - Final NO METHICILLIN RESISTANT STAPH AUREUS... Complete 12/25/19 11:10 Urine,Clean Catch Urine Culture - Final Mixed Urogenital Contaminants Complete 12/25/19 11:10 Nasopharynx SARS-CoV-2 RdRp Gene Assay - Final Complete Laboratory Tests 12/28/19 06:15: Sodium Level 146H, Potassium Level 3.3L, Chloride Level 112H, Carbon Dioxide Level 28, Anion Gap 6, Blood Urea Nitrogen 23H, Creatinine 0.8, Estimat Glomerular Filtration Rate > 60, Glucose Level 97, Calcium Level 9.1, Phosphorus Level 1.6L, Magnesium Level 1.9, Total Bilirubin 0.8, Aspartate Amino Transf (AST/SGOT) 17, Alanine Aminotransferase (ALT/SGPT) 14, Alkaline Phosphatase 81, Total Protein 5.9L, Albumin 2.4L, Globulin 3.5, Albumin/Globulin Ratio 0.7L, TB Test (T-Spot) [Pending], TB Test Nil Control (T-Spot) [Pending], TB Test Panel A (T-Spot) [Pending], TB Test Panel B (T-Spot) [Pending], TB Test Positive Control (T-Spot) [Pending] Current Medications Medications (Trade) Dose Ordered Sig/Kimberley Route PRN Reason Start Time Stop Time Status Last Admin Dose Admin Acetaminophen (Tylenol) 650 mg Q4H PRN ORAL fever 12/25/19 16:30 01/24/20 16:29 12/26/19 04:48 Acetaminophen (Tylenol) 650 mg Q4H PRN RECTAL Mild Pain (Pain Scale 1-3) 12/26/19 15:30 01/25/20 15:29 12/27/19 16:31 Albuterol/ Ipratropium (Albuterol/ Ipratropium) 3 ml Q4H PRN HHN Shortness of Breath 12/25/19 16:30 12/30/19 16:29 Barium Sulfate (Varibar Honey) 250 ml NOW PRN RAD 12/26/19 08:30 12/29/19 08:22 Barium Sulfate (Varibar [place]) 240 ml NOW PRN MC RAD 12/26/19 08:30 12/29/19 08:22 Barium Sulfate (Varibar Pudding) 230 ml NOW PRN RAD 12/26/19 08:30 12/29/19 08:22 Barium Sulfate (Varibar Thin Liquid powder) 148 gm NOW PRN RAD 12/26/19 08:30 12/29/19 08:22 Cefepime HCl 1 gm/ Dextrose 55 ml @ 110 mls/hr EVERY 12 HOURS IVPB 12/25/19 21:00 01/01/20 20:59 12/28/19 09:26 Heparin Sodium (Porcine) (Heparin 5000 units/ml) 5,000 units EVERY 12 HOURS SUBQ 12/26/19 09:00 02/09/20 08:59 12/28/19 09:28 Iohexol (Omnipaque 350 100ml) 100 ml NOW PRN INJ Radiology Procedure 12/26/19 16:45 12/28/19 16:44 Ketorolac Tromethamine (Toradol 30mg) 15 mg Q6H PRN IV pain 12/27/19 18:00 01/01/20 17:59 12/27/19 18:10 Lorazepam (Ativan 2mg/ml 1ml) 0.5 mg EVERY HOUR PRN IV For Anxiety 12/27/19 22:00 01/03/20 21:59 12/28/19 05:32 Ondansetron HCl (Zofran) 4 mg Q6H PRN IVP Nausea & Vomiting 12/25/19 16:30 01/24/20 16:29 Potassium Chloride 10 meq/ Dextrose/Sodium Chloride 1,005 ml @ 50 mls/hr Q20H6M IV 12/26/19 13:00 01/25/20 12:59 12/28/19 05:05 Quetiapine Fumarate (SEROqueL) 25 mg DAILY ORAL 12/26/19 09:00 02/09/20 08:59 12/27/19 09:33 Temazepam (Restoril) 15 mg HSPRN PRN ORAL Insomnia 12/25/19 16:30 01/01/20 16:29 Trazodone HCl (Desyrel) 25 mg BEDTIME ORAL 12/25/19 21:00 01/24/20 20:59 12/27/19 21:42 Vancomycin HCl (Vanco pharmacy to dose) 1 ea DAILY PRN MISC per RX protocol 12/26/19 09:30 01/25/20 09:29 Vancomycin HCl 1 gm/Sodium Chloride 275 ml @ 183.299 mls/hr Q24H IVPB 12/25/19 18:00 12/30/19 17:59 12/27/19 17:44 Assessment/Plan Problems: (1) Altered mental status (2) Sepsis (3) Anxiety (4) Depression (5) Alzheimer's dementia (6) Poor historian Assessment/Plan d/w son at the bed site about feeding options. He will talk to his other brother and let us know about short term NG tube feeding NPO iv fluids andujar culture iv abx still febrile check electrolytes symptomatic treatment swallow evaluation. dvt prophylaxis. d/w son extensively, pt's POLST says no artificial feeding Ck Mcclelland MD Dec 28, 2019 10:57
[2019-12-28 12:00] VITALS: BP 152/68
--- NOTE | 2019-12-28 12:14 | Consultation ---
Consult Note Consult Note I am asked to evaluate the patient at the request of Dr. Serna for fluid and electrolyte management Day 3 of hospitalization Emergency room note: Patient presents emergency department today with acute altered mental status. Patient stays at the [facility]. According to registration Dr. Love is not on staff at [facility]. Dr. Mcclelland is the preferred hospitalist for [facility]. Patient was noted to be altered today. Patient has had a fever on arrival. Patient was unable to provide any history. History was obtained for what ever medical records we have. According to the transfer paperwork patient does have a history of Alzheimer's disease. No other complaints were noted. Symptoms noted to be severe. No other modifying factors. No other associated signs and symptoms. No other complaints were noted. Allergies: No Known Allergies (Unverified , 12/25/19) COVID-19 Screening Contact w/high risk pt: No Recent Travel to affected area: No Experienced COVID-19 symptoms?: No COVID-19 Testing performed HAND TUFTER: No Past Medical History: other - Alzheimer's disease, depression, anxiety hyperlipidemia, hypothyroidism Past Medical History: No History, Except For Hx Cardiac Problems: No - OTHER HX NOT AVAILABLE Hx Gastrointestinal Problems: No - hyperlipidemia, hypothyroidism Hx Neurological Problems: Yes - Alzheimers, anxiety, depression General Appearance: alert, moderate distress - Confused, thin Head: atraumatic Eyes: bilateral eye normal inspection ENT: normal ENT inspection, moist mucus membranes Neck: normal inspection, supple Respiratory: normal inspection, decreased breath sounds, crackles - Basilar Cardiovascular #1: regular rate, rhythm, no edema Gastrointestinal: normal inspection, normal bowel sounds, soft Genitourinary: no CVA tenderness Musculoskeletal: normal inspection, normal range of motion Neurologic: alert, other - Grossly nonfocal but unable to fully assess due to patient's poor mental status Skin: no rash . Assessment/Plan Electrolyte imbalance Toxic metabolic encephalopathy Sepsis Alzheimer's dementia, depression, anxiety K-Phos IV Antibiotics Patient DNR/DNI No artificial means of feeding at this time Continue current care Daniel Mathews MD Dec 28, 2019 12:14
--- NOTE | 2019-12-28 12:16 | Infectious Diseases Prog Note ---
Assessment/Plan Assessment: Sepsis UTI PNA- report of bright red blood upon suctioning per RN- no PE- l ikely aspiration PNA -12/25 CTA chest: Enhancement is not very robust and there is some motion. No apparent central pulmonary embolus. Bibasilar consolidation. Irregular opacities/nodular infiltrates in the lingula, right middle and right lower lobes. rapid COVID PCR neg R/o probable bacteremia -12/24 CXR: Bilateral lower lobe atelectasis versus infiltrate. u/a 30-40, nit neg, leuk +2; ucx Organism 1 MIXED UROGENITAL CONTAMINANTS COLONY COUNT: 10,000 - 20,000 CFU/ML rapid COVID PCR neg Influenza screen neg Bcx p Fever; imporving No leukocytosis Acute encephalopathy -CT head: No acute intracranial process.nvolutional changes with small vessel disease. Alzheimer' disease MDD HLD hypothyroidism anxiety disorder [facility] Plan: -Continue empiric IV Vancomycin and Cefepime #4 pending cultures -12/24 SP Ceftriaxone x1, Azithromycin x1 -f/u cx -Monitor CBC/CMP, temperatures -f/u sp cx, TB spot -aspiration precautions -DNR/DNI Thank you for consulting [facility]. Will continue to follow along with you. Discussed with RN. Subjective Allergies: Coded Allergies: MORPHINE (Verified Allergy, Unknown, 12/26/19) Patient's SNF notes morphine allergy in RX list Tm 102.8;a febrile >12hs remains on VM Bcx p Objective Last 24 Hour Vital Signs Date Time Temp Pulse Resp B/P (MAP) Pulse Ox O2 Delivery O2 Flow Rate FiO2 12/28/19 09:52 Venturi Mask 10.0 12/28/19 08:09 68 19 98 Venturi Mask 10.0 50 12/28/19 08:00 97.7 58 19 113/58 (76) 95 12/28/19 06:02 76 20 136/76 99 12/28/19 05:32 79 20 145/88 96 12/28/19 04:00 97.7 79 20 140/65 (90) 96 12/28/19 00:00 97.5 70 21 134/67 (89) 98 12/27/19 21:00 Venturi Mask 10.0 12/27/19 20:00 97.0 67 22 120/55 (76) 97 12/27/19 17:01 100.8 12/27/19 16:00 102.6 84 20 134/59 (84) 96 12/27/19 15:47 76 Height (Feet): 5 Height (Inches): 4.00 Weight (Pounds): 130 General Appearance: alert, moderate distress - Confused, thin Head: atraumatic Eyes: bilateral eye normal inspection ENT: normal ENT inspection, moist mucus membranes Neck: normal inspection, supple Respiratory: normal inspection, decreased breath sounds, crackles - Basilar Cardiovascular #1: regular rate, rhythm, no edema Gastrointestinal: normal inspection, normal bowel sounds, soft Microbiology Date/Time Source Procedure Growth Status 12/26/19 15:30 Nasopharynx SARS-CoV-2 RdRp Gene Assay - Final Complete Laboratory Tests Test 12/28/19 06:15 Sodium Level 146 MMOL/L (136-145) H Potassium Level 3.3 MMOL/L (3.5-5.1) L Chloride Level 112 MMOL/L (98-107) H Carbon Dioxide Level 28 MMOL/L (21-32) Anion Gap 6 mmol/L (5-15) Blood Urea Nitrogen 23 mg/dL (7-18) H Creatinine 0.8 MG/DL (0.55-1.30) Estimat Glomerular Filtration Rate > 60 mL/min (>60) Glucose Level 97 MG/DL (74-106) Calcium Level 9.1 MG/DL (8.5-10.1) Phosphorus Level 1.6 MG/DL (2.5-4.9) L Magnesium Level 1.9 MG/DL (1.8-2.4) Total Bilirubin 0.8 MG/DL (0.2-1.0) Aspartate Amino Transf (AST/SGOT) 17 U/L (15-37) Alanine Aminotransferase (ALT/SGPT) 14 U/L (12-78) Alkaline Phosphatase 81 U/L (46-116) Total Protein 5.9 G/DL (6.4-8.2) L Albumin 2.4 G/DL (3.4-5.0) L Globulin 3.5 g/dL Albumin/Globulin Ratio 0.7 (1.0-2.7) L TB Test (T-Spot) Pending TB Test Nil Control (T-Spot) Pending TB Test Panel A (T-Spot) Pending TB Test Panel B (T-Spot) Pending TB Test Positive Control (T-Spot) Pending Current Medications Medications (Trade) Dose Ordered Sig/Kimberely Route PRN Reason Start Time Stop Time Status Last Admin Dose Admin Acetaminophen (Tylenol) 650 mg Q4H PRN ORAL fever 12/25/19 16:30 01/24/20 16:29 12/26/19 04:48 Acetaminophen (Tylenol) 650 mg Q4H PRN RECTAL Mild Pain (Pain Scale 1-3) 12/26/19 15:30 01/25/20 15:29 12/27/19 16:31 Albuterol/ Ipratropium (Albuterol/ Ipratropium) 3 ml Q4H PRN HHN Shortness of Breath 12/25/19 16:30 12/30/19 16:29 Barium Sulfate (Varibar Honey) 250 ml NOW PRN MC RAD 12/26/19 08:30 12/29/19 08:22 Barium Sulfate (Varibar [place]) 240 ml NOW PRN MC RAD 12/26/19 08:30 12/29/19 08:22 Barium Sulfate (Varibar Pudding) 230 ml NOW PRN MC RAD 12/26/19 08:30 12/29/19 08:22 Barium Sulfate (Varibar Thin Liquid powder) 148 gm NOW PRN MC RAD 12/26/19 08:30 12/29/19 08:22 Cefepime HCl 1 gm/ Dextrose 55 ml @ 110 mls/hr EVERY 12 HOURS IVPB 12/25/19 21:00 01/01/20 20:59 12/28/19 09:26 Heparin Sodium (Porcine) (Heparin 5000 units/ml) 5,000 units EVERY 12 HOURS SUBQ 12/26/19 09:00 02/09/20 08:59 12/28/19 09:28 Iohexol (Omnipaque 350 100ml) 100 ml NOW PRN INJ Radiology Procedure 12/26/19 16:45 12/28/19 16:44 Ketorolac Tromethamine (Toradol 30mg) 15 mg Q6H PRN IV pain 12/27/19 18:00 01/01/20 17:59 12/27/19 18:10 Lorazepam (Ativan 2mg/ml 1ml) 0.5 mg EVERY HOUR PRN IV For Anxiety 12/27/19 22:00 01/03/20 21:59 12/28/19 05:32 Ondansetron HCl (Zofran) 4 mg Q6H PRN IVP Nausea & Vomiting 12/25/19 16:30 01/24/20 16:29 Potassium Chloride 10 meq/ Dextrose/Sodium Chloride 1,005 ml @ 50 mls/hr Q20H6M IV 12/26/19 13:00 01/25/20 12:59 12/28/19 05:05 Quetiapine Fumarate (SEROqueL) 25 mg DAILY ORAL 12/26/19 09:00 02/09/20 08:59 12/27/19 09:33 Temazepam (Restoril) 15 mg HSPRN PRN ORAL Insomnia 12/25/19 16:30 01/01/20 16:29 Trazodone HCl (Desyrel) 25 mg BEDTIME ORAL 12/25/19 21:00 01/24/20 20:59 12/27/19 21:42 Vancomycin HCl (Vanco pharmacy to dose) 1 ea DAILY PRN MISC per RX protocol 12/26/19 09:30 01/25/20 09:29 Vancomycin HCl 1 gm/Sodium Chloride 275 ml @ 183.299 mls/hr Q24H IVPB 12/25/19 18:00 12/30/19 17:59 12/27/19 17:44 Aneta Camacho M.D. Dec 28, 2019 12:16
[2019-12-28] MEDS: Potassium Phosphate 15mm/250ml 250 ML IVPB SCH ×2 (13:52→18:44)
[2019-12-28 16:00] VITALS: BP 158/83
[2019-12-28 20:00] VITALS: BP 153/78
[2019-12-28] MEDS: TraZODone HCl 25 mg tablet ORAL SCH (20:52)
[2019-12-28] MEDS: Vancomycin 750 MG in NS 275 ML IVPB SCH (22:40)
[2019-12-29] VITALS (7 sets, daily range): BP systolic 132–154; BP diastolic 58–79
[2019-12-29] MEDS: Potassium Chloride 10 MEQ in D5 1/2NS 1,000 ML IV SCH (06:00)
[2019-12-29 06:21] LABS: BASOPHILS % (AUTO) 1.4 % (0.0-2.0); EOSINOPHILS % (AUTO) 1.7 % (0.0-3.0); HEMATOCRIT 37.2 % (37.0-47.0); HEMOGLOBIN 12.2 G/DL (12.0-16.0); LYMPHOCYTES % (AUTO) 8.3 % (20.0-45.0); MEAN CORPUSCULAR VOLUME 95 FL (80-99); MONOCYTES % (AUTO) 9.4 % (1.0-10.0); NEUTROPHILS % (AUTO) 79.2 % (45.0-75.0); PLATELET COUNT 140 K/UL (150-450); WHITE BLOOD COUNT 10.4 K/UL (4.8-10.8)
[2019-12-29 06:53] LABS: ALANINE AMINOTRANSFERASE 19 U/L (12-78); ALBUMIN 2.2 G/DL (3.4-5.0); ALBUMIN/GLOBULIN RATIO 0.7 (1.0-2.7); ALKALINE PHOSPHATASE 90 U/L (46-116); ANION GAP 10 mmol/L (5-15); ASPARTATE AMINO TRANSFERASE 33 U/L (15-37); BILIRUBIN,TOTAL 0.8 MG/DL (0.2-1.0); BLOOD UREA NITROGEN 17 mg/dL (7-18); CALCIUM 8.7 MG/DL (8.5-10.1); CARBON DIOXIDE 26 MMOL/L (21-32); CHLORIDE 111 MMOL/L (98-107); CREATININE 0.7 MG/DL (0.55-1.30); GAMMA GLUTAMYL TRANSPEPTIDASE 9 U/L (5-85); PHOSPHORUS 2.9 MG/DL (2.5-4.9); POTASSIUM 3.5 MMOL/L (3.5-5.1); SODIUM 146 MMOL/L (136-145)
[2019-12-29] MEDS: Cefepime HCl 1 GM in D5W 55 ML IVPB SCH ×2 (08:52→20:19)
[2019-12-29] MEDS: Heparin 5000 units/ml inj SUBQ SCH ×2 (08:53→20:19)
[2019-12-29] MEDS: Vancomycin 750 MG in NS 275 ML IVPB SCH (08:55)
[2019-12-29] MEDS: Ketorolac 30mg Inj IV PRN (11:33)
--- NOTE | 2019-12-29 12:19 | Nephrology Progress Note ---
Assessment/Plan Problem List: (1) Dehydration (2) Electrolyte imbalance (3) Alzheimer's dementia Assessment Electrolyte imbalance Toxic metabolic encephalopathy Sepsis Alzheimer's dementia, depression, anxiety Plan KCl 20 M EQ today12/28 Change IV to D5W K-Phos IV given12/27 Antibiotics Patient DNR/DNI No artificial means of feeding at this time Continue current care Subjective ROS Limited/Unobtainable: No Constitutional: Reports: malaise Objective Objective Last 24 Hour Vital Signs Date Time Temp Pulse Resp B/P (MAP) Pulse Ox O2 Delivery O2 Flow Rate FiO2 12/29/19 12:03 98.3 12/29/19 09:29 93 Room Air 2.0 28 12/29/19 09:27 75 20 93 Nasal Cannula 2.0 28 12/29/19 09:00 Nasal Cannula 3.0 12/29/19 08:00 98.3 75 19 154/74 (100) 94 12/29/19 04:00 97.7 69 18 139/60 (86) 96 12/29/19 00:00 97.5 66 18 132/58 (82) 97 12/28/19 21:00 Venturi Mask 10.0 12/28/19 20:25 75 20 95 Venturi Mask 10.0 50 12/28/19 20:25 95 Venturi Mask 10.0 50 12/28/19 20:00 98.1 78 20 153/78 (103) 94 12/28/19 16:00 98.4 78 20 158/83 (108) 94 Intake and Output 12/28/19 12/29/19 19:00 07:00 Intake Total 280 ml Output Total 250 ml 350 ml Balance 30 ml -350 ml Intake IV Total 280 ml Output Urine Total 250 ml 350 ml # Bowel Movements 1 1 Laboratory Tests 12/28/19 17:15: Vancomycin Level Trough 7.5 12/29/19 05:29: White Blood Count 10.4, Red Blood Count 3.90L, Hemoglobin 12.2, Hematocrit 37.2, Mean Corpuscular Volume 95, Mean Corpuscular Hemoglobin 31.2H, Mean Corpuscular Hemoglobin Concent 32.7, Red Cell Distribution Width 12.0, Platelet Count 140L, Mean Platelet Volume 8.5, Neutrophils (%) (Auto) 79.2H, Lymphocytes (%) (Auto) 8.3L, Monocytes (%) (Auto) 9.4, Eosinophils (%) (Auto) 1.7, Basophils (%) (Auto) 1.4, Sodium Level 146H, Potassium Level 3.5, Chloride Level 111H, Carbon Dioxide Level 26, Anion Gap 10, Blood Urea Nitrogen 17, Creatinine 0.7, Estimat Glomerular Filtration Rate > 60, Glucose Level 88, Hemoglobin A1c 5.5, Uric Acid 3.2, Calcium Level 8.7, Phosphorus Level 2.9, Magnesium Level 1.9, Total Bilirubin 0.8, Gamma Glutamyl Transpeptidase 9, Aspartate Amino Transf (AST/SGOT) 33, Alanine Aminotransferase (ALT/SGPT) 19, Alkaline Phosphatase 90, C-Reactive Protein, Quantitative 17.4H, Pro-B-Type Natriuretic Peptide 8952H, Total Protein 5.2L, Albumin 2.2L, Globulin 3.0, Albumin/Globulin Ratio 0.7L, Vitamin B12 Level 1569H, Folate 10.3 12/29/19 09:30: TB Test (T-Spot) [Pending], TB Test Nil Control (T-Spot) [Pending], TB Test Panel A (T-Spot) [Pending], TB Test Panel B (T-Spot) [Pending], TB Test Positive Control (T-Spot) [Pending] Height (Feet): 5 Height (Inches): 4.00 Weight (Pounds): 130 General Appearance: no apparent distress, lethargic Cardiovascular: normal rate Respiratory/Chest: decreased breath sounds Abdomen: soft Daniel Mathews MD Dec 29, 2019 12:19
--- NOTE | 2019-12-29 13:42 | Pulmonology Progress Note ---
Subjective ROS Limited/Unobtainable: No Constitutional: Reports: no symptoms HEENT: Repors: no symptoms Respiratory: Reports: no symptoms Allergies: Coded Allergies: MORPHINE (Verified Allergy, Unknown, 12/26/19) Patient's SNF notes morphine allergy in RX list Objective Last 24 Hour Vital Signs Date Time Temp Pulse Resp B/P (MAP) Pulse Ox O2 Delivery O2 Flow Rate FiO2 12/29/19 12:03 98.3 12/29/19 12:00 98.6 80 18 147/79 (101) 95 12/29/19 09:29 93 Room Air 2.0 28 12/29/19 09:27 75 20 93 Nasal Cannula 2.0 28 12/29/19 09:00 Nasal Cannula 3.0 12/29/19 08:00 98.3 75 19 154/74 (100) 94 12/29/19 04:00 97.7 69 18 139/60 (86) 96 12/29/19 00:00 97.5 66 18 132/58 (82) 97 12/28/19 21:00 Venturi Mask 10.0 12/28/19 20:25 75 20 95 Venturi Mask 10.0 50 12/28/19 20:25 95 Venturi Mask 10.0 50 12/28/19 20:00 98.1 78 20 153/78 (103) 94 12/28/19 16:00 98.4 78 20 158/83 (108) 94 Intake and Output 0 12/28/19 12/29/19 19:00 07:00 Intake Total 280 ml Output Total 250 ml 350 ml Balance 30 ml -350 ml Intake IV Total 280 ml Output Urine Total 250 ml 350 ml # Bowel Movements 1 1 General Appearance: cachetic HEENT: normocephalic, atraumatic Respiratory: chest wall non-tender, lungs clear, normal breath sounds Breasts: no masses Cardiovascular: normal peripheral pulses Abdomen: normal bowel sounds, soft, non tender Genitourinary: normal external genitalia Extremities: no cyanosis 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 Microbiology Date/Time Source Procedure Growth Status 12/26/19 15:30 Nasopharynx SARS-CoV-2 RdRp Gene Assay - Final Complete Laboratory Tests 12/28/19 17:15: Vancomycin Level Trough 7.5 12/29/19 05:29: White Blood Count 10.4, Red Blood Count 3.90L, Hemoglobin 12.2, Hematocrit 37.2, Mean Corpuscular Volume 95, Mean Corpuscular Hemoglobin 31.2H, Mean Corpuscular Hemoglobin Concent 32.7, Red Cell Distribution Width 12.0, Platelet Count 140L, Mean Platelet Volume 8.5, Neutrophils (%) (Auto) 79.2H, Lymphocytes (%) (Auto) 8.3L, Monocytes (%) (Auto) 9.4, Eosinophils (%) (Auto) 1.7, Basophils (%) (Auto) 1.4, Sodium Level 146H, Potassium Level 3.5, Chloride Level 111H, Carbon Dioxide Level 26, Anion Gap 10, Blood Urea Nitrogen 17, Creatinine 0.7, Estimat Glomerular Filtration Rate > 60, Glucose Level 88, Hemoglobin A1c 5.5, Uric Acid 3.2, Calcium Level 8.7, Phosphorus Level 2.9, Magnesium Level 1.9, Total Bilirubin 0.8, Gamma Glutamyl Transpeptidase 9, Aspartate Amino Transf (AST/SGOT) 33, Alanine Aminotransferase (ALT/SGPT) 19, Alkaline Phosphatase 90, C-Reactive Protein, Quantitative 17.4H, Pro-B-Type Natriuretic Peptide 8952H, Total Protein 5.2L, Albumin 2.2L, Globulin 3.0, Albumin/Globulin Ratio 0.7L, Vitamin B12 Level 1569H, Folate 10.3 12/29/19 09:30: TB Test (T-Spot) [Pending], TB Test Nil Control (T-Spot) [Pending], TB Test Panel A (T-Spot) [Pending], TB Test Panel B (T-Spot) [Pending], TB Test Positive Control (T-Spot) [Pending] Current Medications Medications (Trade) Dose Ordered Sig/Kimberley Route PRN Reason Start Time Stop Time Status Last Admin Dose Admin Acetaminophen (Tylenol) 650 mg Q4H PRN ORAL fever 12/25/19 16:30 01/24/20 16:29 12/26/19 04:48 Acetaminophen (Tylenol) 650 mg Q4H PRN RECTAL Mild Pain (Pain Scale 1-3) 12/26/19 15:30 01/25/20 15:29 12/27/19 16:31 Albuterol/ Ipratropium (Albuterol/ Ipratropium) 3 ml Q4H PRN HHN Shortness of Breath 12/25/19 16:30 12/30/19 16:29 Cefepime HCl 1 gm/ Dextrose 55 ml @ 110 mls/hr EVERY 12 HOURS IVPB 12/25/19 21:00 01/01/20 20:59 12/29/19 08:52 Dextrose 1,000 ml @ 50 mls/hr Q20H IV 12/29/19 12:30 01/28/20 12:29 12/29/19 13:35 Heparin Sodium (Porcine) (Heparin 5000 units/ml) 5,000 units EVERY 12 HOURS SUBQ 12/26/19 09:00 02/09/20 08:59 12/29/19 08:53 Ketorolac Tromethamine (Toradol 30mg) 15 mg Q6H PRN IV pain 12/27/19 18:00 01/01/20 17:59 12/29/19 11:33 Lorazepam (Ativan 2mg/ml 1ml) 0.5 mg EVERY HOUR PRN IV For Anxiety 12/27/19 22:00 01/03/20 21:59 12/28/19 05:32 Ondansetron HCl (Zofran) 4 mg Q6H PRN IVP Nausea & Vomiting 12/25/19 16:30 01/24/20 16:29 Potassium Chloride 100 ml @ 100 mls/hr Q1H IVPB 12/29/19 12:30 12/29/19 14:29 12/29/19 13:35 Quetiapine Fumarate (SEROqueL) 25 mg DAILY ORAL 12/26/19 09:00 02/09/20 08:59 12/27/19 09:33 Temazepam (Restoril) 15 mg HSPRN PRN ORAL Insomnia 12/25/19 16:30 01/01/20 16:29 Trazodone HCl (Desyrel) 25 mg BEDTIME ORAL 12/25/19 21:00 01/24/20 20:59 12/27/19 21:42 Vancomycin HCl (Vanco pharmacy to dose) 1 ea DAILY PRN MISC per RX protocol 12/26/19 09:30 01/25/20 09:29 Vancomycin HCl 750 mg/Sodium Chloride 275 ml @ 183.333 mls/hr Q12HR@0800,2000 IVPB 12/28/19 20:00 01/02/20 19:59 11/5/20 08:55 Assessment/Plan Problems: (1) Sepsis (2) Altered mental status (3) Anxiety (4) Depression (5) Alzheimer's dementia (6) Poor historian Assessment/Plan no new events GI consult about feeding situation NPO iv fluids andujar culture iv abx still febrile check electrolytes symptomatic treatment swallow evaluation. dvt prophylaxis. d/w son extensively, pt's POLST says no artificial feeding Ck Mcclelland MD Dec 29, 2019 13:42
--- NOTE | 2019-12-29 14:17 | Internal Med Progress Note ---
Subjective Physician Name Johnnie Hollingsworth Attending Physician Ck Mcclelland MD Current Medications Medications (Trade) Dose Ordered Sig/Kimberley Route PRN Reason Start Time Stop Time Status Last Admin Dose Admin Acetaminophen (Tylenol) 650 mg Q4H PRN ORAL fever 12/25/19 16:30 01/24/20 16:29 12/26/19 04:48 Acetaminophen (Tylenol) 650 mg Q4H PRN RECTAL Mild Pain (Pain Scale 1-3) 12/26/19 15:30 01/25/20 15:29 12/27/19 16:31 Albuterol/ Ipratropium (Albuterol/ Ipratropium) 3 ml Q4H PRN HHN Shortness of Breath 12/25/19 16:30 12/30/19 16:29 Cefepime HCl 1 gm/ Dextrose 55 ml @ 110 mls/hr EVERY 12 HOURS IVPB 12/25/19 21:00 01/01/20 20:59 12/29/19 08:52 Dextrose 1,000 ml @ 50 mls/hr Q20H IV 12/29/19 12:30 01/28/20 12:29 12/29/19 13:35 Heparin Sodium (Porcine) (Heparin 5000 units/ml) 5,000 units EVERY 12 HOURS SUBQ 12/26/19 09:00 02/09/20 08:59 12/29/19 08:53 Ketorolac Tromethamine (Toradol 30mg) 15 mg Q6H PRN IV pain 12/27/19 18:00 01/01/20 17:59 12/29/19 11:33 Lorazepam (Ativan 2mg/ml 1ml) 0.5 mg EVERY HOUR PRN IV For Anxiety 12/27/19 22:00 01/03/20 21:59 12/28/19 05:32 Ondansetron HCl (Zofran) 4 mg Q6H PRN IVP Nausea & Vomiting 12/25/19 16:30 01/24/20 16:29 Potassium Chloride 100 ml @ 100 mls/hr Q1H IVPB 12/29/19 12:30 12/29/19 14:29 12/29/19 13:48 Quetiapine Fumarate (SEROqueL) 25 mg DAILY ORAL 12/26/19 09:00 02/09/20 08:59 12/27/19 09:33 Temazepam (Restoril) 15 mg HSPRN PRN ORAL Insomnia 12/25/19 16:30 01/01/20 16:29 Trazodone HCl (Desyrel) 25 mg BEDTIME ORAL 12/25/19 21:00 01/24/20 20:59 12/27/19 21:42 Vancomycin HCl (Vanco pharmacy to dose) 1 ea DAILY PRN MISC per RX protocol 12/26/19 09:30 01/25/20 09:29 Vancomycin HCl 750 mg/Sodium Chloride 275 ml @ 183.333 mls/hr Q12HR@0800,1999 IVPB 12/28/19 20:00 01/02/20 19:59 12/29/19 08:55 Allergies: Coded Allergies: MORPHINE (Verified Allergy, Unknown, 12/26/19) Patient's SNF notes morphine allergy in RX list Subjective awake, responsive but confuse , decreased oral intake, no acute distress, WBC 10.4, sodium 146. Objective Last Vital Signs Date Time Temp Pulse Resp B/P (MAP) Pulse Ox O2 Delivery O2 Flow Rate FiO2 12/29/19 12:03 98.3 12/29/19 12:00 80 18 147/79 (101) 95 12/29/19 09:29 Room Air 2.0 28 Laboratory Tests Test 12/28/19 17:15 12/29/19 05:29 12/29/19 09:30 Vancomycin Level Trough 7.5 ug/mL (5.0-12.0) White Blood Count 10.4 K/UL (4.8-10.8) Red Blood Count 3.90 M/UL (4.20-5.40) L Hemoglobin 12.2 G/DL (12.0-16.0) Hematocrit 37.2 % (37.0-47.0) Mean Corpuscular Volume 95 FL (80-99) Mean Corpuscular Hemoglobin 31.2 PG (27.0-31.0) H Mean Corpuscular Hemoglobin Concent 32.7 G/DL (32.0-36.0) Red Cell Distribution Width 12.0 % (11.6-14.8) Platelet Count 140 K/UL (150-450) L Mean Platelet Volume 8.5 FL (6.5-10.1) Neutrophils (%) (Auto) 79.2 % (45.0-75.0) H Lymphocytes (%) (Auto) 8.3 % (20.0-45.0) L Monocytes (%) (Auto) 9.4 % (1.0-10.0) Eosinophils (%) (Auto) 1.7 % (0.0-3.0) Basophils (%) (Auto) 1.4 % (0.0-2.0) Sodium Level 146 MMOL/L (136-145) H Potassium Level 3.5 MMOL/L (3.5-5.1) Chloride Level 111 MMOL/L (98-107) H Carbon Dioxide Level 26 MMOL/L (21-32) Anion Gap 10 mmol/L (5-15) Blood Urea Nitrogen 17 mg/dL (7-18) Creatinine 0.7 MG/DL (0.55-1.30) Estimat Glomerular Filtration Rate > 60 mL/min (>60) Glucose Level 88 MG/DL (74-106) Hemoglobin A1c 5.5 % (4.3-6.0) Uric Acid 3.2 MG/DL (2.6-7.2) Calcium Level 8.7 MG/DL (8.5-10.1) Phosphorus Level 2.9 MG/DL (2.5-4.9) Magnesium Level 1.9 MG/DL (1.8-2.4) Total Bilirubin 0.8 MG/DL (0.2-1.0) Gamma Glutamyl Transpeptidase 9 U/L (5-85) Aspartate Amino Transf (AST/SGOT) 33 U/L (15-37) Alanine Aminotransferase (ALT/SGPT) 19 U/L (12-78) Alkaline Phosphatase 90 U/L (46-116) C-Reactive Protein, Quantitative 17.4 mg/dL (0.00-0.90) H Pro-B-Type Natriuretic Peptide 8952 pg/mL (0-125) H Total Protein 5.2 G/DL (6.4-8.2) L Albumin 2.2 G/DL (3.4-5.0) L Globulin 3.0 g/dL Albumin/Globulin Ratio 0.7 (1.0-2.7) L Vitamin B12 Level 1569 PG/ML (193-986) H Folate 10.3 NG/ML (8.6-58.9) TB Test (T-Spot) Pending TB Test Nil Control (T-Spot) Pending TB Test Panel A (T-Spot) Pending TB Test Panel B (T-Spot) Pending TB Test Positive Control (T-Spot) Pending Microbiology Date/Time Source Procedure Growth Status 12/26/19 15:30 Nasopharynx SARS-CoV-2 RdRp Gene Assay - Final Complete Intake and Output 12/28/19 12/29/19 19:00 07:00 Intake Total 280 ml Output Total 250 ml 350 ml Balance 30 ml -350 ml Intake IV Total 280 ml Output Urine Total 250 ml 350 ml # Bowel Movements 1 1 Objective General: No acute distress, awake and response but confused. HEENT: NCAT, sclera anicteric, PERRL, EOMI. Neck: Supple, no significant jugular venous distention, Lungs: Fair inspiratory effort, decreased air at the bas, no Wheeze or Rales. Heart: Regular rate and rhythm, normal S1/S2, no murmur. Abdomen: soft, nontender, nondistended. Normoactive bowel sounds. / Rectal: Refused and deferred. Extremities: No Cyanosis , clubbing or edema. Neuro: A&O x 2, Able to move upper extremities, weakness bilateral lower extremities. Skin: warm, no rash. Psych: Depressed mood. Assessment/Plan Assessment/Plan Sepsis UTI Possible aspiration pneumonia Fever; imporving Acute encephalopathy Alzheimer' disease MDD HLD hypothyroidism Anxiety disorder SNF resident ([facility]) Plan: Abx: IV Vancomycin and IV Daptomycin CODE STATUS: DNR/DNI DVT prophylaxis: Heparin subcu bedside swallow study, start on a pure diet. monitor laboratory and cultures. Discharge planning to SNF. Dr. Mcclelland: pulmonary / critical care Dr. Santizo: infection disease Dr. Mathews: Nephrology Johnnie Hollingsworth MD Dec 29, 2019 14:17
--- NOTE | 2019-12-29 16:30 | Consultation ---
DATE OF CONSULTATION: 12/29/2019 CONSULTING PHYSICIAN: Kilo Romero MD CHIEF COMPLAINT: Altered mental status, failure to thrive, dysphagia. HISTORY OF PRESENT ILLNESS: Most of the history per chart. This is a 74-year-old patient [facility] with altered mental status. Patient has not been eating actually out of failure to thrive, so GI consult requested for further evaluation. PAST MEDICAL HISTORY: 1. Alzheimer disease. 2. Anxiety and depression. 3. Hypercholesterolemia. 4. Hypothyroidism. ALLERGIES: To morphine. MEDICATIONS: Please see medication reconciliation list. SOCIAL HISTORY: [facility] living in the [facility]. No history of tobacco, alcohol, or drug use. PAST SURGICAL HISTORY: Unknown. REVIEW OF SYSTEMS: Unable to obtain. PHYSICAL EXAMINATION: VITAL SIGNS: Temperature 98.6, pulse of 80, respirations 18, blood pressure is 147/79. HEENT: Normocephalic, atraumatic. Sclerae anicteric. NECK: Supple. No evidence of obvious lymphadenopathy. CARDIOVASCULAR: Regular rate and rhythm. Plus S1-S2. LUNGS: Clear to auscultation bilaterally. ABDOMEN: Positive bowel sounds. Soft and nontender. No rebound. No guarding. No peritoneal sign. EXTREMITIES: No cyanosis, no clubbing, no edema. LABORATORY DATA: White count is 10, hemoglobin 12, hematocrit 37, platelet count is 140. Chem-7, sodium 146, potassium 3.5, BUN 17, creatinine 0.7. Liver function grossly normal. ASSESSMENT AND PLAN: This is a 74-year-old female with multiple medical problems. GI standpoint, patient has difficulty with eating . The patient had a swallow evaluation today, which she passed for p.o. diet. Our plan will be start the patient on low-dose Megace. Continue on DVT prophylaxis. Order calorie count for 48 hours. Consider doing PEG if patient has inadequate p.o. intake. I want to thank Dr. Mcclelland for this kind referral. Kilo Romero M.D. DR: TRINA JOB#: [id number] CC: Ck Mcclelland M.D.; Fax#: [phone]
--- NOTE | 2019-12-29 16:38 | Infectious Diseases Prog Note ---
Assessment/Plan Assessment: Sepsis UTI PNA- report of bright red blood upon suctioning per RN- no PE- l ikely aspiration PNA -12/25 CTA chest: Enhancement is not very robust and there is some motion. No apparent central pulmonary embolus. Bibasilar consolidation. Irregular opacities/nodular infiltrates in the lingula, right middle and right lower lobes. rapid COVID PCR neg R/o probable bacteremia -12/26 u/a no pyuria,n it +, leuk +2 -12/25 ucx >100k VRE -12/24 CXR: Bilateral lower lobe atelectasis versus infiltrate. u/a 30-40, nit neg, leuk +2; ucx Organism 1 MIXED UROGENITAL CONTAMINANTS COLONY COUNT: 10,000 - 20,000 CFU/ML rapid COVID PCR neg Influenza screen neg Bcx p Fever; imporving No leukocytosis Acute encephalopathy -CT head: No acute intracranial process.nvolutional changes with small vessel disease. Alzheimer' disease MDD HLD hypothyroidism anxiety disorder SNF resident ([facility]) Plan: -Switch empiric IV Vancomycin #5 to IV Daptomycin for VRE UTI -monitor CPK - Cefepime #5/7 -12/24 SP Ceftriaxone x1, Azithromycin x1 -f/u cx -Monitor CBC/CMP, temperatures -f/u sp cx, TB spot -aspiration precautions -DNR/DNI Thank you for consulting [facility]. Will continue to follow along with you. Discussed with RN and pharmacy staff.. Subjective Allergies: Coded Allergies: MORPHINE (Verified Allergy, Unknown, 12/26/19) Patient's SNF notes morphine allergy in RX list afebrile >36hrs no leukocytosis Objective Last 24 Hour Vital Signs Date Time Temp Pulse Resp B/P (MAP) Pulse Ox O2 Delivery O2 Flow Rate FiO2 12/29/19 12:03 98.3 12/29/19 12:00 98.6 80 18 147/79 (101) 95 12/29/19 09:29 93 Room Air 2.0 28 12/29/19 09:27 75 20 93 Nasal Cannula 2.0 28 12/29/19 09:00 Nasal Cannula 3.0 12/29/19 08:00 98.3 75 19 154/74 (100) 94 12/29/19 04:00 97.7 69 18 139/60 (86) 96 12/29/19 00:00 97.5 66 18 132/58 (82) 97 12/28/19 21:00 Venturi Mask 10.0 12/28/19 20:25 75 20 95 Venturi Mask 10.0 50 12/28/19 20:25 95 Venturi Mask 10.0 50 12/28/19 20:00 98.1 78 20 153/78 (103) 94 Height (Feet): 5 Height (Inches): 4.00 Weight (Pounds): 130 General Appearance: alert, moderate distress - Confused, thin Head: atraumatic Eyes: bilateral eye normal inspection ENT: normal ENT inspection, moist mucus membranes Neck: normal inspection, supple Respiratory: normal inspection, decreased breath sounds, crackles - Basilar Cardiovascular #1: regular rate, rhythm, no edema Gastrointestinal: normal inspection, normal bowel sounds, soft Laboratory Tests Test 12/28/19 17:15 12/29/19 05:29 12/29/19 05:49 12/29/19 09:30 Vancomycin Level Trough 7.5 ug/mL (5.0-12.0) White Blood Count 10.4 K/UL (4.8-10.8) Red Blood Count 3.90 M/UL (4.20-5.40) L Hemoglobin 12.2 G/DL (12.0-16.0) Hematocrit 37.2 % (37.0-47.0) Mean Corpuscular Volume 95 FL (80-99) Mean Corpuscular Hemoglobin 31.2 PG (27.0-31.0) H Mean Corpuscular Hemoglobin Concent 32.7 G/DL (32.0-36.0) Red Cell Distribution Width 12.0 % (11.6-14.8) Platelet Count 140 K/UL (150-450) L Mean Platelet Volume 8.5 FL (6.5-10.1) Neutrophils (%) (Auto) 79.2 % (45.0-75.0) H Lymphocytes (%) (Auto) 8.3 % (20.0-45.0) L Monocytes (%) (Auto) 9.4 % (1.0-10.0) Eosinophils (%) (Auto) 1.7 % (0.0-3.0) Basophils (%) (Auto) 1.4 % (0.0-2.0) Sodium Level 146 MMOL/L (136-145) H Potassium Level 3.5 MMOL/L (3.5-5.1) Chloride Level 111 MMOL/L (98-107) H Carbon Dioxide Level 26 MMOL/L (21-32) Anion Gap 10 mmol/L (5-15) Blood Urea Nitrogen 17 mg/dL (7-18) Creatinine 0.7 MG/DL (0.55-1.30) Estimat Glomerular Filtration Rate > 60 mL/min (>60) Glucose Level 88 MG/DL (74-106) Hemoglobin A1c 5.5 % (4.3-6.0) Uric Acid 3.2 MG/DL (2.6-7.2) Calcium Level 8.7 MG/DL (8.5-10.1) Phosphorus Level 2.9 MG/DL (2.5-4.9) Magnesium Level 1.9 MG/DL (1.8-2.4) Total Bilirubin 0.8 MG/DL (0.2-1.0) Gamma Glutamyl Transpeptidase 9 U/L (5-85) Aspartate Amino Transf (AST/SGOT) 33 U/L (15-37) Alanine Aminotransferase (ALT/SGPT) 19 U/L (12-78) Alkaline Phosphatase 90 U/L (46-116) C-Reactive Protein, Quantitative 17.4 mg/dL (0.00-0.90) H Pro-B-Type Natriuretic Peptide 8952 pg/mL (0-125) H Total Protein 5.2 G/DL (6.4-8.2) L Albumin 2.2 G/DL (3.4-5.0) L Globulin 3.0 g/dL Albumin/Globulin Ratio 0.7 (1.0-2.7) L Vitamin B12 Level 1569 PG/ML (193-986) H Folate 10.3 NG/ML (8.6-58.9) Thyroid Stimulating Hormone (TSH) Pending TB Test (T-Spot) Pending TB Test Nil Control (T-Spot) Pending TB Test Panel A (T-Spot) Pending TB Test Panel B (T-Spot) Pending TB Test Positive Control (T-Spot) Pending Current Medications Medications (Trade) Dose Ordered Sig/Kimberley Route PRN Reason Start Time Stop Time Status Last Admin Dose Admin Acetaminophen (Tylenol) 650 mg Q4H PRN ORAL fever 12/25/19 16:30 01/24/20 16:29 12/26/19 04:48 Acetaminophen (Tylenol) 650 mg Q4H PRN RECTAL Mild Pain (Pain Scale 1-3) 12/26/19 15:30 01/25/20 15:29 12/27/19 16:31 Albuterol/ Ipratropium (Albuterol/ Ipratropium) 3 ml Q4H PRN HHN Shortness of Breath 12/25/19 16:30 12/30/19 16:29 Cefepime HCl 1 gm/ Dextrose 55 ml @ 110 mls/hr EVERY 12 HOURS IVPB 12/25/19 21:00 01/01/20 20:59 12/29/19 08:52 Dextrose 1,000 ml @ 50 mls/hr Q20H IV 12/29/19 12:30 01/28/20 12:29 12/29/19 13:35 Heparin Sodium (Porcine) (Heparin 5000 units/ml) 5,000 units EVERY 12 HOURS SUBQ 12/26/19 09:00 02/09/20 08:59 12/29/19 08:53 Ketorolac Tromethamine (Toradol 30mg) 15 mg Q6H PRN IV pain 12/27/19 18:00 01/01/20 17:59 12/29/19 11:33 Lorazepam (Ativan 2mg/ml 1ml) 0.5 mg EVERY HOUR PRN IV For Anxiety 12/27/19 22:00 01/03/20 21:59 12/28/19 05:32 Megestrol Acetate (Megace) 400 mg DAILY ORAL 12/30/19 09:00 03/29/20 08:59 Ondansetron HCl (Zofran) 4 mg Q6H PRN IVP Nausea & Vomiting 12/25/19 16:30 01/24/20 16:29 Quetiapine Fumarate (SEROqueL) 25 mg DAILY ORAL 12/26/19 09:00 02/09/20 08:59 12/27/19 09:33 Temazepam (Restoril) 15 mg HSPRN PRN ORAL Insomnia 12/25/19 16:30 01/01/20 16:29 Trazodone HCl (Desyrel) 25 mg BEDTIME ORAL 12/25/19 21:00 121/20 20:59 12/27/19 21:42 Vancomycin HCl (Vanco pharmacy to dose) 1 ea DAILY PRN MISC per RX protocol 12/26/19 09:30 01/25/20 09:29 Vancomycin HCl 750 mg/Sodium Chloride 275 ml @ 183.333 mls/hr Q12HR@0800,1999 IVPB 12/28/19 20:00 01/02/20 19:59 12/29/19 08:55 Aneta Camacho M.D. Dec 29, 2019 16:38
[2019-12-29] MEDS: DAPTOmycin 250 MG in NS 55 ML IV SCH (17:36)
[2019-12-29] MEDS: TraZODone HCl 25 mg tablet ORAL SCH (20:19)
[2019-12-30 04:00] VITALS: BP 144/73
[2019-12-30 05:14] LABS: BASOPHILS % (AUTO) 1.5 % (0.0-2.0); HEMATOCRIT 34.2 % (37.0-47.0); HEMOGLOBIN 11.5 G/DL (12.0-16.0); LYMPHOCYTES % (AUTO) 10.4 % (20.0-45.0); MEAN CORPUSCULAR VOLUME 94 FL (80-99); MONOCYTES % (AUTO) 15.3 % (1.0-10.0); NEUTROPHILS % (AUTO) 70.8 % (45.0-75.0); PLATELET COUNT 147 K/UL (150-450); RED BLOOD COUNT 3.65 M/UL (4.20-5.40); WHITE BLOOD COUNT 7.8 K/UL (4.8-10.8)
[2019-12-30 05:38] LABS: CREATINE KINASE 57 U/L (26-308)
[2019-12-30 05:52] LABS: ALANINE AMINOTRANSFERASE 33 U/L (12-78); ALBUMIN/GLOBULIN RATIO 0.6 (1.0-2.7); ALKALINE PHOSPHATASE 82 U/L (46-116); ANION GAP 8 mmol/L (5-15); ASPARTATE AMINO TRANSFERASE 41 U/L (15-37); BILIRUBIN,TOTAL 0.7 MG/DL (0.2-1.0); BLOOD UREA NITROGEN 10 mg/dL (7-18); CALCIUM 8.6 MG/DL (8.5-10.1); CARBON DIOXIDE 26 MMOL/L (21-32); CHLORIDE 109 MMOL/L (98-107); CREATININE 0.7 MG/DL (0.55-1.30); POTASSIUM 3.3 MMOL/L (3.5-5.1); SODIUM 143 MMOL/L (136-145)
[2019-12-30 08:00] VITALS: BP 165/85
[2019-12-30] MEDS: Megace 400mg/10ml Susp ORAL SCH (09:00)
[2019-12-30] MEDS: Cefepime HCl 1 GM in D5W 55 ML IVPB SCH ×2 (09:45→20:15)
--- NOTE | 2019-12-30 09:54 | Nephrology Progress Note ---
Assessment/Plan Problem List: (1) Dehydration (2) Electrolyte imbalance (3) Alzheimer's dementia Assessment Electrolyte imbalance Toxic metabolic encephalopathy Sepsis Alzheimer's dementia, depression, anxiety Plan December 29: Abnormal electrolytes addressed. Stable from renal standpoint today. Previously: KCl 20 M EQ today12/28 Change IV to D5W K-Phos IV given12/27 Antibiotics Patient DNR/DNI No artificial means of feeding at this time Continue current care Subjective ROS Limited/Unobtainable: No Constitutional: Reports: malaise, weakness Objective Objective Last 24 Hour Vital Signs Date Time Temp Pulse Resp B/P (MAP) Pulse Ox O2 Delivery O2 Flow Rate FiO2 12/30/19 04:00 98.6 73 18 144/73 (96) 96 12/29/19 23:49 98.5 69 18 147/63 (91) 96 12/29/19 21:44 92 Nasal Cannula 3.0 32 12/29/19 21:43 73 20 92 Nasal Cannula 3.0 32 12/29/19 21:33 Room Air 12/29/19 20:08 98.9 79 20 141/65 (90) 94 12/29/19 16:00 97.8 69 18 140/73 (95) 95 12/29/19 12:03 98.3 12/29/19 12:00 98.6 80 18 147/79 (101) 95 Intake and Output 12/29/19 12/30/19 19:00 07:00 Intake Total 1562 ml 555 ml Output Total 350 ml 600 ml Balance 1212 ml -45 ml Intake IV Total 1562 ml 555 ml Output Urine Total 350 ml 600 ml # Voids 1 # Bowel Movements 1 Laboratory Tests 12/30/19 04:28: White Blood Count 7.8, Red Blood Count 3.65L, Hemoglobin 11.5L, Hematocrit 34.2L , Mean Corpuscular Volume 94, Mean Corpuscular Hemoglobin 31.5H, Mean Corpuscular Hemoglobin Concent 33.6, Red Cell Distribution Width 12.0, Platelet Count 147L, Mean Platelet Volume 7.7, Neutrophils (%) (Auto) 70.8, Lymphocytes (%) (Auto) 10.4L, Monocytes (%) (Auto) 15.3H, Eosinophils (%) (Auto) 2.0, Basophils (%) (Auto) 1.5, Sodium Level 143, Potassium Level 3.3L, Chloride Level 109H, Carbon Dioxide Level 26, Anion Gap 8, Blood Urea Nitrogen 10, Creatinine 0.7, Estimat Glomerular Filtration Rate > 60, Glucose Level 90, Calcium Level 8.6, Total Bilirubin 0.7, Aspartate Amino Transf (AST/SGOT) 41H, Alanine Aminotransferase (ALT/SGPT) 33, Alkaline Phosphatase 82, Total Creatine Kinase 57, Total Protein 5.4L, Albumin 2.0L, Globulin 3.4, Albumin/Globulin Ratio 0.6L, Free Thyroxine 0.92 Height (Feet): 5 Height (Inches): 4.00 Weight (Pounds): 130 General Appearance: no apparent distress Objective No change Daniel Mathews MD Dec 30, 2019 09:53
[2019-12-30] MEDS: Heparin 5000 units/ml inj SUBQ SCH ×2 (09:59→20:19)
[2019-12-30 12:00] VITALS: BP 159/77
--- NOTE | 2019-12-30 13:05 | General Progress Note ---
Subjective ROS Limited/Unobtainable: No Allergies: Coded Allergies: MORPHINE (Verified Allergy, Unknown, 12/26/19) Patient's SNF notes morphine allergy in RX list Objective Last 24 Hour Vital Signs Date Time Temp Pulse Resp B/P (MAP) Pulse Ox O2 Delivery O2 Flow Rate FiO2 12/30/19 09:00 Room Air 12/30/19 08:00 98.6 86 19 165/85 (111) 94 12/30/19 04:00 98.6 73 18 144/73 (96) 96 12/29/19 23:49 98.5 69 18 147/63 (91) 96 12/29/19 21:44 92 Nasal Cannula 3.0 32 12/29/19 21:43 73 20 92 Nasal Cannula 3.0 32 12/29/19 21:33 Room Air 12/29/19 20:08 98.9 79 20 141/65 (90) 94 12/29/19 16:00 97.8 69 18 140/73 (95) 95 Intake and Output 12/29/19 12/30/19 19:00 07:00 Intake Total 1562 ml 555 ml Output Total 350 ml 600 ml Balance 1212 ml -45 ml Intake IV Total 1562 ml 555 ml Output Urine Total 350 ml 600 ml # Voids 1 # Bowel Movements 1 Laboratory Tests 12/30/19 04:28: White Blood Count 7.8, Red Blood Count 3.65L, Hemoglobin 11.5L, Hematocrit 34.2L , Mean Corpuscular Volume 94, Mean Corpuscular Hemoglobin 31.5H, Mean Corpuscular Hemoglobin Concent 33.6, Red Cell Distribution Width 12.0, Platelet Count 147L, Mean Platelet Volume 7.7, Neutrophils (%) (Auto) 70.8, Lymphocytes (%) (Auto) 10.4L, Monocytes (%) (Auto) 15.3H, Eosinophils (%) (Auto) 2.0, Basophils (%) (Auto) 1.5, Sodium Level 143, Potassium Level 3.3L, Chloride Level 109H, Carbon Dioxide Level 26, Anion Gap 8, Blood Urea Nitrogen 10, Creatinine 0.7, Estimat Glomerular Filtration Rate > 60, Glucose Level 90, Calcium Level 8.6, Total Bilirubin 0.7, Aspartate Amino Transf (AST/SGOT) 41H, Alanine Aminotransferase (ALT/SGPT) 33, Alkaline Phosphatase 82, Total Creatine Kinase 57, Total Protein 5.4L, Albumin 2.0L, Globulin 3.4, Albumin/Globulin Ratio 0.6L, Free Thyroxine 0.92 Height (Feet): 5 Height (Inches): 4.00 Weight (Pounds): 130 General Appearance: no apparent distress EENT: normal ENT inspection Neck: supple Cardiovascular: normal rate Respiratory/Chest: decreased breath sounds Abdomen: normal bowel sounds, non tender, soft Extremities: non-tender Assessment/Plan Assessment/Plan: 1. Alzheimer disease. 2. Anxiety and depression. 3. Hypercholesterolemia. 4. Hypothyroidism. 5. FTT on puree diet poor po intake dietitian in put appreciated family not sure about PEG at this time will fu Kilo Romero MD Dec 30, 2019 13:05
--- NOTE | 2019-12-30 13:28 | Pulmonology Progress Note ---
Subjective ROS Limited/Unobtainable: No Constitutional: Reports: no symptoms HEENT: Repors: no symptoms Respiratory: Reports: no symptoms Allergies: Coded Allergies: MORPHINE (Verified Allergy, Unknown, 12/26/19) Patient's SNF notes morphine allergy in RX list Objective Last 24 Hour Vital Signs Date Time Temp Pulse Resp B/P (MAP) Pulse Ox O2 Delivery O2 Flow Rate FiO2 12/30/19 09:00 Room Air 12/30/19 08:00 98.6 86 19 165/85 (111) 94 12/30/19 04:00 98.6 73 18 144/73 (96) 96 12/29/19 23:49 98.5 69 18 147/63 (91) 96 12/29/19 21:44 92 Nasal Cannula 3.0 32 12/29/19 21:43 73 20 92 Nasal Cannula 3.0 32 12/29/19 21:33 Room Air 12/29/19 20:08 98.9 79 20 141/65 (90) 94 12/29/19 16:00 97.8 69 18 140/73 (95) 95 Intake and Output 12/29/19 12/30/19 19:00 07:00 Intake Total 1562 ml 555 ml Output Total 350 ml 600 ml Balance 1212 ml -45 ml Intake IV Total 1562 ml 555 ml Output Urine Total 350 ml 600 ml # Voids 1 # Bowel Movements 1 General Appearance: cachetic HEENT: normocephalic, atraumatic Respiratory: chest wall non-tender, lungs clear, normal breath sounds Breasts: no masses Cardiovascular: normal peripheral pulses Abdomen: normal bowel sounds, soft, non tender Genitourinary: normal external genitalia Extremities: no cyanosis Neurologic: quality assurance intern II-XII grossly normal Microbiology Date/Time Source Procedure Growth Status 12/28/19 21:00 Sputum Gram Stain - Final Resulted 12/28/19 21:00 Sputum Sputum Culture Pending Resulted Laboratory Tests 12/30/19 04:28: White Blood Count 7.8, Red Blood Count 3.65L, Hemoglobin 11.5L, Hematocrit 34.2L , Mean Corpuscular Volume 94, Mean Corpuscular Hemoglobin 31.5H, Mean Corpuscular Hemoglobin Concent 33.6, Red Cell Distribution Width 12.0, Platelet Count 147L, Mean Platelet Volume 7.7, Neutrophils (%) (Auto) 70.8, Lymphocytes (%) (Auto) 10.4L, Monocytes (%) (Auto) 15.3H, Eosinophils (%) (Auto) 2.0, Basophils (%) (Auto) 1.5, Sodium Level 143, Potassium Level 3.3L, Chloride Level 109H, Carbon Dioxide Level 26, Anion Gap 8, Blood Urea Nitrogen 10, Creatinine 0.7, Estimat Glomerular Filtration Rate > 60, Glucose Level 90, Calcium Level 8.6, Total Bilirubin 0.7, Aspartate Amino Transf (AST/SGOT) 41H, Alanine Aminotransferase (ALT/SGPT) 33, Alkaline Phosphatase 82, Total Creatine Kinase 57, Total Protein 5.4L, Albumin 2.0L, Globulin 3.4, Albumin/Globulin Ratio 0.6L, Free Thyroxine 0.92 Current Medications Medications (Trade) Dose Ordered Sig/Kimberley Route PRN Reason Start Time Stop Time Status Last Admin Dose Admin Acetaminophen (Tylenol) 650 mg Q4H PRN ORAL fever 12/25/19 16:30 01/24/20 16:29 12/26/19 04:48 Acetaminophen (Tylenol) 650 mg Q4H PRN RECTAL Mild Pain (Pain Scale 1-3) 12/26/19 15:30 01/25/20 15:29 12/27/19 16:31 Albuterol/ Ipratropium (Albuterol/ Ipratropium) 3 ml Q4H PRN HHN Shortness of Breath 12/25/19 16:30 12/30/19 16:29 Cefepime HCl 1 gm/ Dextrose 55 ml @ 110 mls/hr EVERY 12 HOURS IVPB 12/25/19 21:00 01/01/20 20:59 12/30/19 09:45 Daptomycin 250 mg/ Sodium Chloride 55 ml @ 100 mls/hr Q24H IV 12/29/19 18:00 01/05/20 17:59 12/29/19 17:36 Dextrose 1,000 ml @ 50 mls/hr Q20H IV 12/29/19 12:30 01/28/20 12:29 12/29/19 13:35 Heparin Sodium (Porcine) (Heparin 5000 units/ml) 5,000 units EVERY 12 HOURS SUBQ 12/26/19 09:00 02/09/20 08:59 12/30/19 09:59 Ketorolac Tromethamine (Toradol 30mg) 15 mg Q6H PRN IV pain 12/27/19 18:00 01/01/20 17:59 12/29/19 11:33 Lorazepam (Ativan 2mg/ml 1ml) 0.5 mg EVERY HOUR PRN IV For Anxiety 12/27/19 22:00 01/03/20 21:59 12/28/19 05:32 Megestrol Acetate (Megace) 400 mg DAILY ORAL 12/30/19 09:00 03/29/20 08:59 Ondansetron HCl (Zofran) 4 mg Q6H PRN IVP Nausea & Vomiting 12/25/19 16:30 01/24/20 16:29 Potassium Chloride (K-Dur) 20 meq TWICE A DAY ORAL 12/30/19 18:00 03/29/20 17:59 Quetiapine Fumarate (SEROqueL) 25 mg DAILY ORAL 12/26/19 09:00 02/09/20 08:59 12/27/19 09:33 Temazepam (Restoril) 15 mg HSPRN PRN ORAL Insomnia 12/25/19 16:30 01/01/20 16:29 Trazodone HCl (Desyrel) 25 mg BEDTIME ORAL 12/25/19 21:00 01/24/20 20:59 12/29/19 20:19 Assessment/Plan Problems: (1) Sepsis (2) Altered mental status (3) Anxiety (4) Depression (5) Alzheimer's dementia (6) Poor historian Assessment/Plan no new events GI consult about feeding situation appreciated on Pureed diet iv fluids andujar culture iv abx still febrile check electrolytes symptomatic treatment swallow evaluation. dvt prophylaxis. d/w son extensively, pt's POLST says no artificial feeding Ck Mcclelland MD Dec 30, 2019 13:28
--- NOTE | 2019-12-30 14:26 | Internal Med Progress Note ---
Subjective Physician Name DarrickJohnnie Attending Physician Ck Mcclelland MD Current Medications Medications (Trade) Dose Ordered Sig/Kimberley Route PRN Reason Start Time Stop Time Status Last Admin Dose Admin Acetaminophen (Tylenol) 650 mg Q4H PRN ORAL fever 12/25/19 16:30 01/24/20 16:29 12/26/19 04:48 Acetaminophen (Tylenol) 650 mg Q4H PRN RECTAL Mild Pain (Pain Scale 1-3) 12/26/19 15:30 01/25/20 15:29 12/27/19 16:31 Albuterol/ Ipratropium (Albuterol/ Ipratropium) 3 ml Q4H PRN HHN Shortness of Breath 12/25/19 16:30 12/30/19 16:29 Cefepime HCl 1 gm/ Dextrose 55 ml @ 110 mls/hr EVERY 12 HOURS IVPB 12/25/19 21:00 01/01/20 20:59 12/30/19 09:45 Daptomycin 250 mg/ Sodium Chloride 55 ml @ 100 mls/hr Q24H IV 12/29/19 18:00 01/05/20 17:59 12/29/19 17:36 Dextrose 1,000 ml @ 50 mls/hr Q20H IV 12/29/19 12:30 01/28/20 12:29 12/29/19 13:35 Heparin Sodium (Porcine) (Heparin 5000 units/ml) 5,000 units EVERY 12 HOURS SUBQ 12/26/19 09:00 02/09/20 08:59 12/30/19 09:59 Ketorolac Tromethamine (Toradol 30mg) 15 mg Q6H PRN IV pain 12/27/19 18:00 01/01/20 17:59 12/29/19 11:33 Lorazepam (Ativan 2mg/ml 1ml) 0.5 mg EVERY HOUR PRN IV For Anxiety 12/27/19 22:00 01/03/20 21:59 12/28/19 05:32 Megestrol Acetate (Megace) 400 mg DAILY ORAL 12/30/19 09:00 03/29/20 08:59 Ondansetron HCl (Zofran) 4 mg Q6H PRN IVP Nausea & Vomiting 12/25/19 16:30 01/24/20 16:29 Potassium Chloride (K-Dur) 20 meq TWICE A DAY ORAL 12/30/19 18:00 03/29/20 17:59 Quetiapine Fumarate (SEROqueL) 25 mg DAILY ORAL 12/26/19 09:00 02/09/20 08:59 12/27/19 09:33 Temazepam (Restoril) 15 mg HSPRN PRN ORAL Insomnia 12/25/19 16:30 01/01/20 16:29 Trazodone HCl (Desyrel) 25 mg BEDTIME ORAL 12/25/19 21:00 01/24/20 20:59 12/29/19 20:19 Allergies: Coded Allergies: MORPHINE (Verified Allergy, Unknown, 12/26/19) Patient's SNF notes morphine allergy in RX list Subjective awake, responsive but confuse , decreased oral intake, no acute distress, WBC 7.8. Objective Last Vital Signs Date Time Temp Pulse Resp B/P (MAP) Pulse Ox O2 Delivery O2 Flow Rate FiO2 12/30/19 09:00 Room Air 12/30/19 08:00 98.6 86 19 165/85 (111) 94 12/29/19 21:44 3.0 32 Laboratory Tests Test 12/30/19 04:28 White Blood Count 7.8 K/UL (4.8-10.8) Red Blood Count 3.65 M/UL (4.20-5.40) L Hemoglobin 11.5 G/DL (12.0-16.0) L Hematocrit 34.2 % (37.0-47.0) L Mean Corpuscular Volume 94 FL (80-99) Mean Corpuscular Hemoglobin 31.5 PG (27.0-31.0) H Mean Corpuscular Hemoglobin Concent 33.6 G/DL (32.0-36.0) Red Cell Distribution Width 12.0 % (11.6-14.8) Platelet Count 147 K/UL (150-450) L Mean Platelet Volume 7.7 FL (6.5-10.1) Neutrophils (%) (Auto) 70.8 % (45.0-75.0) Lymphocytes (%) (Auto) 10.4 % (20.0-45.0) L Monocytes (%) (Auto) 15.3 % (1.0-10.0) H Eosinophils (%) (Auto) 2.0 % (0.0-3.0) Basophils (%) (Auto) 1.5 % (0.0-2.0) Sodium Level 143 MMOL/L (136-145) Potassium Level 3.3 MMOL/L (3.5-5.1) L Chloride Level 109 MMOL/L (98-107) H Carbon Dioxide Level 26 MMOL/L (21-32) Anion Gap 8 mmol/L (5-15) Blood Urea Nitrogen 10 mg/dL (7-18) Creatinine 0.7 MG/DL (0.55-1.30) Estimat Glomerular Filtration Rate > 60 mL/min (>60) Glucose Level 90 MG/DL (74-106) Calcium Level 8.6 MG/DL (8.5-10.1) Total Bilirubin 0.7 MG/DL (0.2-1.0) Aspartate Amino Transf (AST/SGOT) 41 U/L (15-37) H Alanine Aminotransferase (ALT/SGPT) 33 U/L (12-78) Alkaline Phosphatase 82 U/L (46-116) Total Creatine Kinase 57 U/L (26-308) Total Protein 5.4 G/DL (6.4-8.2) L Albumin 2.0 G/DL (3.4-5.0) L Globulin 3.4 g/dL Albumin/Globulin Ratio 0.6 (1.0-2.7) L Free Thyroxine 0.92 NG/DL (0.76-1.46) Microbiology Date/Time Source Procedure Growth Status 12/28/19 21:00 Sputum Gram Stain - Final Resulted 12/28/19 21:00 Sputum Sputum Culture Pending Resulted Intake and Output 12/29/19 12/30/19 19:00 07:00 Intake Total 1562 ml 555 ml Output Total 350 ml 600 ml Balance 1212 ml -45 ml Intake IV Total 1562 ml 555 ml Output Urine Total 350 ml 600 ml # Voids 1 # Bowel Movements 1 Objective General: No acute distress, awake and response but confused. HEENT: NCAT, sclera anicteric, PERRL, EOMI. Neck: Supple, no significant jugular venous distention, Lungs: Fair inspiratory effort, decreased air at the bas, no Wheeze or Rales. Heart: Regular rate and rhythm, normal S1/S2, no murmur. Abdomen: soft, nontender, nondistended. Normoactive bowel sounds. / Rectal: Refused and deferred. Extremities: No Cyanosis , clubbing or edema. Neuro: A&O x 2, Able to move upper extremities, weakness bilateral lower extremities. Skin: warm, no rash. Psych: Depressed mood. Assessment/Plan Assessment/Plan Sepsis UTI Possible aspiration pneumonia Fever; imporving Acute encephalopathy Alzheimer' disease MDD HLD hypothyroidism Anxiety disorder [facility]) Plan: Abx: IV Vancomycin and IV Daptomycin CODE STATUS: DNR/DNI DVT prophylaxis: Heparin subcu bedside swallow study, start on a pure diet. monitor laboratory and cultures. Discharge planning to SNF. Dr. Mcclelland: pulmonary / critical care Dr. Santizo: infection disease Dr. Mathews: Nephrology POLST says no artificial feeding Johnnie Hollingsworth MD Dec 30, 2019 14:26
--- NOTE | 2019-12-30 15:22 | Infectious Diseases Prog Note ---
Assessment/Plan Assessment: Sepsis UTI PNA- report of bright red blood upon suctioning per RN- no PE- l ikely aspiration PNA -12/25 CTA chest: Enhancement is not very robust and there is some motion. No apparent central pulmonary embolus. Bibasilar consolidation. Irregular opacities/nodular infiltrates in the lingula, right middle and right lower lobes. rapid COVID PCR neg R/o probable bacteremia -12/26 u/a no pyuria,n it +, leuk +2 -12/25 ucx >100k VRE -12/24 CXR: Bilateral lower lobe atelectasis versus infiltrate. u/a 30-40, nit neg, leuk +2; ucx Organism 1 MIXED UROGENITAL CONTAMINANTS COLONY COUNT: 10,000 - 20,000 CFU/ML rapid COVID PCR neg Influenza screen neg Bcx p Fever; Sp No leukocytosis Acute encephalopathy -CT head: No acute intracranial process.nvolutional changes with small vessel disease. Alzheimer' disease MDD HLD hypothyroidism anxiety disorder SNF resident ([facility]) Plan: - IV Daptomycin #2/-7 for VRE UTI -monitor CPK - Cefepime #6/7 -12/28 SP IV Vancomycin #5 -12/24 SP Ceftriaxone x1, Azithromycin x1 -f/u cx -Monitor CBC/CMP, temperatures -f/u sp cx, TB spot -aspiration precautions -DNR/DNI Thank you for consulting [facility]. Will continue to follow along with you. Discussed with RN and pharmacy staff.. Subjective Allergies: Coded Allergies: MORPHINE (Verified Allergy, Unknown, 12/26/19) Patient's SNF notes morphine allergy in RX list afebrile >48hrs no leukocytosis Bcx NTD Objective Last 24 Hour Vital Signs Date Time Temp Pulse Resp B/P (MAP) Pulse Ox O2 Delivery O2 Flow Rate FiO2 12/30/19 09:00 Room Air 12/30/19 08:00 98.6 86 19 165/85 (111) 94 12/30/19 04:00 98.6 73 18 144/73 (96) 96 12/29/19 23:49 98.5 69 18 147/63 (91) 96 12/29/19 21:44 92 Nasal Cannula 3.0 32 12/29/19 21:43 73 20 92 Nasal Cannula 3.0 32 11/5/20 21:33 Room Air 12/29/19 20:08 98.9 79 20 141/65 (90) 94 12/29/19 16:00 97.8 69 18 140/73 (95) 95 Height (Feet): 5 Height (Inches): 4.00 Weight (Pounds): 130 General Appearance: alert, moderate distress - Confused, thin Head: atraumatic Eyes: bilateral eye normal inspection ENT: normal ENT inspection, moist mucus membranes Neck: normal inspection, supple Respiratory: normal inspection, decreased breath sounds, crackles - Basilar Cardiovascular #1: regular rate, rhythm, no edema Gastrointestinal: normal inspection, normal bowel sounds, soft Microbiology Date/Time Source Procedure Growth Status 12/28/19 21:00 Sputum Gram Stain - Final Resulted 12/28/19 21:00 Sputum Sputum Culture Pending Resulted Laboratory Tests Test 12/30/19 04:28 White Blood Count 7.8 K/UL (4.8-10.8) Red Blood Count 3.65 M/UL (4.20-5.40) L Hemoglobin 11.5 G/DL (12.0-16.0) L Hematocrit 34.2 % (37.0-47.0) L Mean Corpuscular Volume 94 FL (80-99) Mean Corpuscular Hemoglobin 31.5 PG (27.0-31.0) H Mean Corpuscular Hemoglobin Concent 33.6 G/DL (32.0-36.0) Red Cell Distribution Width 12.0 % (11.6-14.8) Platelet Count 147 K/UL (150-450) L Mean Platelet Volume 7.7 FL (6.5-10.1) Neutrophils (%) (Auto) 70.8 % (45.0-75.0) Lymphocytes (%) (Auto) 10.4 % (20.0-45.0) L Monocytes (%) (Auto) 15.3 % (1.0-10.0) H Eosinophils (%) (Auto) 2.0 % (0.0-3.0) Basophils (%) (Auto) 1.5 % (0.0-2.0) Sodium Level 143 MMOL/L (136-145) Potassium Level 3.3 MMOL/L (3.5-5.1) L Chloride Level 109 MMOL/L (98-107) H Carbon Dioxide Level 26 MMOL/L (21-32) Anion Gap 8 mmol/L (5-15) Blood Urea Nitrogen 10 mg/dL (7-18) Creatinine 0.7 MG/DL (0.55-1.30) Estimat Glomerular Filtration Rate > 60 mL/min (>60) Glucose Level 90 MG/DL (74-106) Calcium Level 8.6 MG/DL (8.5-10.1) Total Bilirubin 0.7 MG/DL (0.2-1.0) Aspartate Amino Transf (AST/SGOT) 41 U/L (15-37) H Alanine Aminotransferase (ALT/SGPT) 33 U/L (12-78) Alkaline Phosphatase 82 U/L (46-116) Total Creatine Kinase 57 U/L (26-308) Total Protein 5.4 G/DL (6.4-8.2) L Albumin 2.0 G/DL (3.4-5.0) L Globulin 3.4 g/dL Albumin/Globulin Ratio 0.6 (1.0-2.7) L Free Thyroxine 0.92 NG/DL (0.76-1.46) Current Medications Medications (Trade) Dose Ordered Sig/Kimberley Route PRN Reason Start Time Stop Time Status Last Admin Dose Admin Acetaminophen (Tylenol) 650 mg Q4H PRN ORAL fever 12/25/19 16:30 01/24/20 16:29 12/26/19 04:48 Acetaminophen (Tylenol) 650 mg Q4H PRN RECTAL Mild Pain (Pain Scale 1-3) 12/26/19 15:30 01/25/20 15:29 12/27/19 16:31 Albuterol/ Ipratropium (Albuterol/ Ipratropium) 3 ml Q4H PRN HHN Shortness of Breath 12/25/19 16:30 12/30/19 16:29 Cefepime HCl 1 gm/ Dextrose 55 ml @ 110 mls/hr EVERY 12 HOURS IVPB 12/25/19 21:00 01/01/20 20:59 12/30/19 09:45 Daptomycin 250 mg/ Sodium Chloride 55 ml @ 100 mls/hr Q24H IV 12/29/19 18:00 01/05/20 17:59 12/29/19 17:36 Dextrose 1,000 ml @ 50 mls/hr Q20H IV 12/29/19 12:30 01/28/20 12:29 12/29/19 13:35 Heparin Sodium (Porcine) (Heparin 5000 units/ml) 5,000 units EVERY 12 HOURS SUBQ 12/26/19 09:00 02/09/20 08:59 12/30/19 09:59 Ketorolac Tromethamine (Toradol 30mg) 15 mg Q6H PRN IV pain 12/27/19 18:00 01/01/20 17:59 12/29/19 11:33 Lorazepam (Ativan 2mg/ml 1ml) 0.5 mg EVERY HOUR PRN IV For Anxiety 12/27/19 22:00 01/03/20 21:59 12/28/19 05:32 Megestrol Acetate (Megace) 400 mg DAILY ORAL 12/30/19 09:00 03/29/20 08:59 Ondansetron HCl (Zofran) 4 mg Q6H PRN IVP Nausea & Vomiting 12/25/19 16:30 01/24/20 16:29 Potassium Chloride (K-Dur) 20 meq TWICE A DAY ORAL 12/30/19 18:00 03/29/20 17:59 Quetiapine Fumarate (SEROqueL) 25 mg DAILY ORAL 12/26/19 09:00 02/09/20 08:59 12/27/19 09:33 Temazepam (Restoril) 15 mg HSPRN PRN ORAL Insomnia 12/25/19 16:30 01/01/20 16:29 Trazodone HCl (Desyrel) 25 mg BEDTIME ORAL 12/25/19 21:00 01/24/20 20:59 12/29/19 20:19 Aneta Camacho M.D. Dec 30, 2019 15:22
[2019-12-30 16:00] VITALS: BP 148/91
[2019-12-30] MEDS: DAPTOmycin 250 MG in NS 55 ML IV SCH (18:49)
[2019-12-30 20:00] VITALS: BP 151/71
[2019-12-30] MEDS: TraZODone HCl 25 mg tablet ORAL SCH (20:19)
[2019-12-30 23:43] VITALS: BP 132/69
[2019-12-31 04:00] VITALS: BP 138/76
[2019-12-31 08:00] VITALS: BP 145/81
[2019-12-31] MEDS: Megace 400mg/10ml Susp ORAL SCH (08:55)
[2019-12-31] MEDS: Heparin 5000 units/ml inj SUBQ SCH ×2 (08:57→20:53)
[2019-12-31] MEDS: Cefepime HCl 1 GM in D5W 55 ML IVPB SCH ×2 (08:59→20:51)
[2019-12-31] MEDS ORDERED: Albuterol/Ipratropium 3ml neb HHN PRN (10:00)
--- NOTE | 2019-12-31 10:03 | Pulmonology Progress Note ---
Subjective ROS Limited/Unobtainable: Yes Allergies: Coded Allergies: MORPHINE (Verified Allergy, Unknown, 12/26/19) Patient's SNF notes morphine allergy in RX list Subjective remains afebrile, no leukocytosis on 3 L O2 via NC, sat stable Objective Last 24 Hour Vital Signs Date Time Temp Pulse Resp B/P (MAP) Pulse Ox O2 Delivery O2 Flow Rate FiO2 12/31/19 04:00 98.9 80 18 138/76 (96) 94 12/30/19 23:43 98.9 70 20 132/69 (90) 94 12/30/19 21:00 Nasal Cannula 3.0 12/30/19 20:00 98.6 79 20 151/71 (97) 94 12/30/19 19:25 94 Nasal Cannula 3.0 32 12/30/19 16:00 98.9 78 17 148/91 (110) 98 12/30/19 12:00 97.1 85 18 159/77 (104) 98 Intake and Output 12/30/19 12/31/19 19:00 07:00 Intake Total 250 ml 580 ml Balance 250 ml 580 ml Intake IV Total 250 ml 580 ml # Voids 2 # Bowel Movements 1 General Appearance: cachetic, other - bedridden frail elderly female in NAD HEENT: normocephalic, atraumatic Respiratory: chest wall non-tender, lungs clear - with moderate air exchange Cardiovascular: normal peripheral pulses, normal rate Abdomen: normal bowel sounds, soft, non tender Extremities: no edema, pedal pulses normal Neurologic: abnormal gait, alert - forgetful , other - spastic LE Musculoskeletal: atrophy Microbiology Date/Time Source Procedure Growth Status 12/28/19 21:00 Sputum Gram Stain - Final Complete 12/28/19 21:00 Sputum Culture - Final Narda Albicans Usual Upper Respiratory Sarah Complete Current Medications Medications (Trade) Dose Ordered Sig/Kimberley Route PRN Reason Start Time Stop Time Status Last Admin Dose Admin Acetaminophen (Tylenol) 650 mg Q4H PRN ORAL fever 12/25/19 16:30 01/24/20 16:29 12/26/19 04:48 Acetaminophen (Tylenol) 650 mg Q4H PRN RECTAL Mild Pain (Pain Scale 1-3) 12/26/19 15:30 01/25/20 15:29 12/27/19 16:31 Cefepime HCl 1 gm/ Dextrose 55 ml @ 110 mls/hr EVERY 12 HOURS IVPB 12/25/19 21:00 01/01/20 20:59 12/31/19 08:59 Daptomycin 250 mg/ Sodium Chloride 55 ml @ 100 mls/hr Q24H IV 12/29/19 18:00 01/05/20 17:59 12/30/19 18:49 Dextrose 1,000 ml @ 50 mls/hr Q20H IV 12/29/19 12:30 01/28/20 12:29 12/30/19 18:49 Heparin Sodium (Porcine) (Heparin 5000 units/ml) 5,000 units EVERY 12 HOURS SUBQ 12/26/19 09:00 02/09/20 08:59 12/31/19 08:57 Ketorolac Tromethamine (Toradol 30mg) 15 mg Q6H PRN IV pain 12/27/19 18:00 01/01/20 17:59 12/29/19 11:33 Lorazepam (Ativan 2mg/ml 1ml) 0.5 mg EVERY HOUR PRN IV For Anxiety 12/27/19 22:00 01/03/20 21:59 12/28/19 05:32 Megestrol Acetate (Megace) 400 mg DAILY ORAL 12/30/19 09:00 03/29/20 08:59 12/31/19 08:55 Ondansetron HCl (Zofran) 4 mg Q6H PRN IVP Nausea & Vomiting 12/25/19 16:30 01/24/20 16:29 Potassium Chloride (K-Dur) 20 meq TWICE A DAY ORAL 12/30/19 18:00 03/29/20 17:59 12/31/19 08:55 Quetiapine Fumarate (SEROqueL) 25 mg DAILY ORAL 12/26/19 09:00 02/09/20 08:59 12/31/19 08:55 Temazepam (Restoril) 15 mg HSPRN PRN ORAL Insomnia 12/25/19 16:30 01/01/20 16:29 Trazodone HCl (Desyrel) 25 mg BEDTIME ORAL 12/25/19 21:00 01/24/20 20:59 12/29/19 20:19 Assessment/Plan Assessment/Plan ASSESSMENT Sepsis Pneumonia, probably aspiration UTI Acute encephalopathy Severe dysphagia High aspiration risk Protein calorie malnutrition Alzheimer dementia Hypothyroidism PLAN OF CARE MS floor CT head ->no acute IC pathology CTA-> no PE plus consolidation abx as per ID recs O2 titrate to keep sat above 92% HHN diet texture as per speech therapist recommendation aspiration precaution on Megace protein supplement as per RD recs GI follows, family not sure about G-tube DVT prophylaxis gentle IV hydration TSH WNL resume levothyroxine supportive care DNR/DNI status case discussed and evaluated by supervising physician Yamila Swanson NP Dec 31, 2019 10:03
[2019-12-31 12:00] VITALS: BP 116/64
--- NOTE | 2019-12-31 12:02 | Nephrology Progress Note ---
Assessment/Plan Problem List: (1) Dehydration (2) Electrolyte imbalance (3) Alzheimer's dementia Assessment Electrolyte imbalance Toxic metabolic encephalopathy Sepsis Alzheimer's dementia, depression, anxiety Plan December 30: No labs drawn today. Stable from renal standpoint of view. Will check lab tomorrow. December 29: Abnormal electrolytes addressed. Stable from renal standpoint today. Previously: KCl 20 M EQ today12/28 Change IV to D5W K-Phos IV given12/27 Antibiotics Patient DNR/DNI No artificial means of feeding at this time Continue current care Subjective ROS Limited/Unobtainable: Yes Objective Objective Last 24 Hour Vital Signs Date Time Temp Pulse Resp B/P (MAP) Pulse Ox O2 Delivery O2 Flow Rate FiO2 12/31/19 09:00 Nasal Cannula 3.0 12/31/19 08:00 97.5 83 20 145/81 (102) 94 12/31/19 04:00 98.9 80 18 138/76 (96) 94 12/30/19 23:43 98.9 70 20 132/69 (90) 94 12/30/19 21:00 Nasal Cannula 3.0 12/30/19 20:00 98.6 79 20 151/71 (97) 94 12/30/19 19:25 94 Nasal Cannula 3.0 32 12/30/19 16:00 98.9 78 17 148/91 (110) 98 Intake and Output 12/30/19 12/31/19 19:00 07:00 Intake Total 250 ml 630 ml Balance 250 ml 630 ml Intake IV Total 250 ml 630 ml # Voids 2 # Bowel Movements 1 No labs drawn today Height (Feet): 5 Height (Inches): 4.00 Weight (Pounds): 130 General Appearance: no apparent distress Objective No change Daniel Mathews MD Dec 31, 2019 12:02
[2019-12-31 16:00] VITALS: BP 130/72
--- NOTE | 2019-12-31 16:39 | Infectious Diseases Prog Note ---
Assessment/Plan Assessment: Sepsis UTI PNA- report of bright red blood upon suctioning per RN- no PE- l ikely aspiration PNA -12/25 CTA chest: Enhancement is not very robust and there is some motion. No apparent central pulmonary embolus. Bibasilar consolidation. Irregular opacities/nodular infiltrates in the lingula, right middle and right lower lobes. rapid COVID PCR neg R/o probable bacteremia -12/26 u/a no pyuria,n it +, leuk +2 -12/25 ucx >100k VRE -12/24 CXR: Bilateral lower lobe atelectasis versus infiltrate. u/a 30-40, nit neg, leuk +2; ucx Organism 1 MIXED UROGENITAL CONTAMINANTS COLONY COUNT: 10,000 - 20,000 CFU/ML rapid COVID PCR neg Influenza screen neg Bcx p Fever; Sp No leukocytosis Acute encephalopathy -CT head: No acute intracranial process.nvolutional changes with small vessel disease. Alzheimer' disease MDD HLD hypothyroidism anxiety disorder SNF resident ([facility]) Plan: - IV Daptomycin #/-7 for VRE UTI -monitor CPK - Cefepime #/ -12/28 SP IV Vancomycin #5 -12/24 SP Ceftriaxone x1, Azithromycin x1 -f/u cx -Monitor CBC/CMP, temperatures -f/u sp cx, TB spot -aspiration precautions -DNR/DNI Thank you for consulting [facility]. Will continue to follow along with you. Discussed with RN and pharmacy staff.. Subjective Allergies: Coded Allergies: MORPHINE (Verified Allergy, Unknown, 12/26/19) Patient's SNF notes morphine allergy in RX list afebrile >72hrs no leukocytosis Bcx NTD Objective Last 24 Hour Vital Signs Date Time Temp Pulse Resp B/P (MAP) Pulse Ox O2 Delivery O2 Flow Rate FiO2 12/31/19 16:00 98.7 77 21 130/72 (91) 99 12/31/19 12:00 97.9 73 18 116/64 (81) 99 12/31/19 09:00 Nasal Cannula 3.0 12/31/19 08:00 97.5 83 20 145/81 (102) 94 12/31/19 04:00 98.9 80 18 138/76 (96) 94 12/30/19 23:43 98.9 70 20 132/69 (90) 94 12/30/19 21:00 Nasal Cannula 3.0 12/30/19 20:00 98.6 79 20 151/71 (97) 94 12/30/19 19:25 94 Nasal Cannula 3.0 32 Height (Feet): 5 Height (Inches): 4.00 Weight (Pounds): 130 General Appearance: alert, moderate distress - Confused, thin Head: atraumatic Eyes: bilateral eye normal inspection ENT: normal ENT inspection, moist mucus membranes Neck: normal inspection, supple Respiratory: normal inspection, decreased breath sounds, crackles - Basilar Cardiovascular #1: regular rate, rhythm, no edema Gastrointestinal: normal inspection, normal bowel sounds, soft Microbiology Date/Time Source Procedure Growth Status 12/28/19 21:00 Sputum Gram Stain - Final Complete 12/28/19 21:00 Sputum Culture - Final Narda Albicans Usual Upper Respiratory Sarah Complete Laboratory Tests Test 12/31/19 15:38 Stool Occult Blood Pending Current Medications Medications (Trade) Dose Ordered Sig/Kimberley Route PRN Reason Start Time Stop Time Status Last Admin Dose Admin Acetaminophen (Tylenol) 650 mg Q4H PRN ORAL fever 12/25/19 16:30 01/24/20 16:29 12/26/19 04:48 Acetaminophen (Tylenol) 650 mg Q4H PRN RECTAL Mild Pain (Pain Scale 1-3) 12/26/19 15:30 01/25/20 15:29 12/27/19 16:31 Albuterol/ Ipratropium (Albuterol/ Ipratropium) 3 ml Q4H PRN HHN sob 12/31/19 10:00 01/05/20 09:59 Cefepime HCl 1 gm/ Dextrose 55 ml @ 110 mls/hr EVERY 12 HOURS IVPB 12/25/19 21:00 01/01/20 20:59 12/31/19 08:59 Daptomycin 250 mg/ Sodium Chloride 55 ml @ 100 mls/hr Q24H IV 12/29/19 18:00 01/05/20 17:59 12/30/19 18:49 Dextrose 1,000 ml @ 50 mls/hr Q20H IV 12/29/19 12:30 01/28/20 12:29 12/30/19 18:49 Heparin Sodium (Porcine) (Heparin 5000 units/ml) 5,000 units EVERY 12 HOURS SUBQ 12/26/19 09:00 02/09/20 08:59 12/31/19 08:57 Ketorolac Tromethamine (Toradol 30mg) 15 mg Q6H PRN IV pain 12/27/19 18:00 01/01/20 17:59 12/29/19 11:33 Levothyroxine Sodium (Synthroid) 50 mcg QHS ORAL 12/31/19 21:00 01/30/20 20:59 Lorazepam (Ativan 2mg/ml 1ml) 0.5 mg EVERY HOUR PRN IV For Anxiety 12/27/19 22:00 01/03/20 21:59 12/28/19 05:32 Megestrol Acetate (Megace) 400 mg DAILY ORAL 12/30/19 09:00 03/29/20 08:59 12/31/19 08:55 Ondansetron HCl (Zofran) 4 mg Q6H PRN IVP Nausea & Vomiting 12/25/19 16:30 01/24/20 16:29 Potassium Chloride (K-Dur) 20 meq TWICE A DAY ORAL 12/30/19 18:00 03/29/20 17:59 12/31/19 08:55 Quetiapine Fumarate (SEROqueL) 25 mg DAILY ORAL 12/26/19 09:00 02/09/20 08:59 12/31/19 08:55 Temazepam (Restoril) 15 mg HSPRN PRN ORAL Insomnia 12/25/19 16:30 01/01/20 16:29 Temazepam (Restoril) 15 mg HSPRN PRN ORAL Insomnia 12/31/19 15:00 01/07/20 14:59 Trazodone HCl (Desyrel) 25 mg BEDTIME ORAL 12/25/19 21:00 01/24/20 20:59 12/29/19 20:19 Aneta Camacho M.D. Dec 31, 2019 16:39
[2019-12-31] MEDS: DAPTOmycin 250 MG in NS 55 ML IV SCH (17:44)
--- NOTE | 2019-12-31 18:28 | General Progress Note ---
Subjective Allergies: Coded Allergies: MORPHINE (Verified Allergy, Unknown, 12/26/19) Patient's SNF notes morphine allergy in RX list Subjective patient moaning and coughing no events overnight Objective Last 24 Hour Vital Signs Date Time Temp Pulse Resp B/P (MAP) Pulse Ox O2 Delivery O2 Flow Rate FiO2 12/31/19 16:00 98.7 77 21 130/72 (91) 99 12/31/19 12:00 97.9 73 18 116/64 (81) 99 12/31/19 09:00 Nasal Cannula 3.0 12/31/19 08:00 97.5 83 20 145/81 (102) 94 12/31/19 04:00 98.9 80 18 138/76 (96) 94 12/30/19 23:43 98.9 70 20 132/69 (90) 94 12/30/19 21:00 Nasal Cannula 3.0 12/30/19 20:00 98.6 79 20 151/71 (97) 94 12/30/19 19:25 94 Nasal Cannula 3.0 32 Intake and Output 12/30/19 12/31/19 19:00 07:00 Intake Total 250 ml 630 ml Balance 250 ml 630 ml Intake IV Total 250 ml 630 ml # Voids 2 # Bowel Movements 1 Laboratory Tests 12/31/19 15:38: Stool Occult Blood [Pending] Height (Feet): 5 Height (Inches): 4.00 Weight (Pounds): 130 Objective Thin woman NCAT supple Coarse BS RR abd soft ND no edema Assessment/Plan Assessment/Plan: Assessment 1. Alzheimer disease / malnutrition 2. Anxiety and depression. 3. Hypercholesterolemia. 4. Hypothyroidism. 5. FTT Recommendations on puree diet poor po intake dietitian in put appreciated family not sure about PEG at this time will f/u Jaye Webb MD Dec 31, 2019 18:28
[2019-12-31 20:00] VITALS: BP 144/78
[2019-12-31] MEDS: TraZODone HCl 25 mg tablet ORAL SCH (20:51)
[2020-01-01] VITALS: BP 126/70
[2020-01-01 04:00] VITALS: BP 149/69
[2020-01-01 08:00] VITALS: BP 157/90
[2020-01-01] MEDS: Megace 400mg/10ml Susp ORAL SCH (09:00)
[2020-01-01] MEDS: Cefepime HCl 1 GM in D5W 55 ML IVPB SCH (09:00)
[2020-01-01] MEDS: Heparin 5000 units/ml inj SUBQ SCH ×2 (09:02→21:55)
[2020-01-01 09:07] LABS: BASOPHILS % (AUTO) 1.3 % (0.0-2.0); EOSINOPHILS % (AUTO) 1.4 % (0.0-3.0); HEMATOCRIT 40.1 % (37.0-47.0); HEMOGLOBIN 13.5 G/DL (12.0-16.0); LYMPHOCYTES % (AUTO) 11.2 % (20.0-45.0); MEAN CORPUSCULAR VOLUME 93 FL (80-99); MONOCYTES % (AUTO) 9.2 % (1.0-10.0); NEUTROPHILS % (AUTO) 76.9 % (45.0-75.0); PLATELET COUNT 230 K/UL (150-450); RED BLOOD COUNT 4.34 M/UL (4.20-5.40); RED CELL DISTRIBUTION WIDTH 11.7 % (11.6-14.8); WHITE BLOOD COUNT 11.3 K/UL (4.8-10.8)
[2020-01-01 09:29] LABS: ANION GAP 10 mmol/L (5-15); BLOOD UREA NITROGEN 8 mg/dL (7-18); CALCIUM 8.6 MG/DL (8.5-10.1); CARBON DIOXIDE 26 MMOL/L (21-32); CHLORIDE 108 MMOL/L (98-107); CREATININE 0.7 MG/DL (0.55-1.30); POTASSIUM 3.5 MMOL/L (3.5-5.1); SODIUM 144 MMOL/L (136-145)
[2020-01-01 09:31] LABS: ALANINE AMINOTRANSFERASE 28 U/L (12-78); ALBUMIN 2.4 G/DL (3.4-5.0); ALKALINE PHOSPHATASE 82 U/L (46-116); ASPARTATE AMINO TRANSFERASE 27 U/L (15-37); BILIRUBIN,DIRECT 0.2 MG/DL (0.0-0.3); BILIRUBIN,TOTAL 0.7 MG/DL (0.2-1.0); PHOSPHORUS 2.7 MG/DL (2.5-4.9)
--- NOTE | 2020-01-01 10:04 | Pulmonology Progress Note ---
Subjective ROS Limited/Unobtainable: Yes Allergies: Coded Allergies: MORPHINE (Verified Allergy, Unknown, 12/26/19) Patient's SNF notes morphine allergy in RX list Subjective remains afebrile, mild leukocytosis this am on 3 L O2 via NC, sat stable Objective Last 24 Hour Vital Signs Date Time Temp Pulse Resp B/P (MAP) Pulse Ox O2 Delivery O2 Flow Rate FiO2 01/01/20 08:00 98.3 86 17 157/90 (112) 96 01/01/20 04:00 96.9 77 22 149/69 (95) 93 01/01/20 00:00 97.3 72 22 126/70 (88) 95 12/31/19 21:00 Nasal Cannula 3.0 12/31/19 20:26 94 Nasal Cannula 3.0 32 12/31/19 20:00 97.9 65 20 144/78 (100) 94 12/31/19 16:00 98.7 77 21 130/72 (91) 99 12/31/19 12:00 97.9 73 18 116/64 (81) 99 Intake and Output 12/31/19 01/01/20 19:00 07:00 Intake Total 660 ml 210 ml Output Total 700 ml Balance 660 ml -490 ml Intake IV Total 660 ml 210 ml Output Urine Total 700 ml General Appearance: cachetic, other - bedridden frail elderly female in NAD HEENT: normocephalic, atraumatic Respiratory: chest wall non-tender, lungs clear - with moderate air exchange Cardiovascular: normal peripheral pulses, normal rate Abdomen: normal bowel sounds, soft, non tender Extremities: no edema, pedal pulses normal Neurologic: abnormal gait, alert - forgetful , other - spastic LE Musculoskeletal: atrophy Laboratory Tests 12/31/19 15:38: Stool Occult Blood Negative 01/01/20 08:40: White Blood Count 11.3H, Red Blood Count 4.34, Hemoglobin 13.5, Hematocrit 40.1, Mean Corpuscular Volume 93, Mean Corpuscular Hemoglobin 31.2H, Mean Corpuscular Hemoglobin Concent 33.8, Red Cell Distribution Width 11.7, Platelet Count 230, Mean Platelet Volume 6.6, Neutrophils (%) (Auto) 76.9H, Lymphocytes (%) (Auto) 11.2L, Monocytes (%) (Auto) 9.2, Eosinophils (%) (Auto) 1.4, Basophils (%) (Auto) 1.3, Sodium Level 144, Potassium Level 3.5, Chloride Level 108H, Carbon Dioxide Level 26, Anion Gap 10, Blood Urea Nitrogen 8, Creatinine 0.7, Estimat Glomerular Filtration Rate > 60, Glucose Level 100, Calcium Level 8.6, Phosphorus Level 2.7, Magnesium Level 1.8, Total Bilirubin 0.7, Direct Bilirubin 0.2, Aspartate Amino Transf (AST/SGOT) 27, Alanine Aminotransferase (ALT/SGPT) 28, Alkaline Phosphatase 82, Total Protein 6.1L, Albumin 2.4L Current Medications Medications (Trade) Dose Ordered Sig/Kimberley Route PRN Reason Start Time Stop Time Status Last Admin Dose Admin Acetaminophen (Tylenol) 650 mg Q4H PRN ORAL fever 12/25/19 16:30 01/24/20 16:29 12/26/19 04:48 Acetaminophen (Tylenol) 650 mg Q4H PRN RECTAL Mild Pain (Pain Scale 1-3) 12/26/19 15:30 01/25/20 15:29 12/27/19 16:31 Albuterol/ Ipratropium (Albuterol/ Ipratropium) 3 ml Q4H PRN HHN sob 12/31/19 10:00 01/05/20 09:59 Cefepime HCl 1 gm/ Dextrose 55 ml @ 110 mls/hr EVERY 12 HOURS IVPB 12/25/19 21:00 01/01/20 20:59 01/01/20 09:00 Daptomycin 250 mg/ Sodium Chloride 55 ml @ 100 mls/hr Q24H IV 12/29/19 18:00 01/05/20 17:59 12/31/19 17:44 Dextrose 1,000 ml @ 50 mls/hr Q20H IV 12/29/19 12:30 01/28/20 12:29 01/01/20 01:00 Heparin Sodium (Porcine) (Heparin 5000 units/ml) 5,000 units EVERY 12 HOURS SUBQ 12/26/19 09:00 02/09/20 08:59 01/01/20 09:02 Ketorolac Tromethamine (Toradol 30mg) 15 mg Q6H PRN IV pain 12/27/19 18:00 01/01/20 17:59 12/29/19 11:33 Levothyroxine Sodium (Synthroid) 50 mcg QHS ORAL 12/31/19 21:00 01/30/20 20:59 12/31/19 20:51 Lorazepam (Ativan 2mg/ml 1ml) 0.5 mg EVERY HOUR PRN IV For Anxiety 12/27/19 22:00 01/03/20 21:59 12/28/19 05:32 Megestrol Acetate (Megace) 400 mg DAILY ORAL 12/30/19 09:00 03/29/20 08:59 01/01/20 09:00 Ondansetron HCl (Zofran) 4 mg Q6H PRN IVP Nausea & Vomiting 12/25/19 16:30 01/24/20 16:29 Potassium Chloride (K-Dur) 20 meq TWICE A DAY ORAL 12/30/19 18:00 03/29/20 17:59 01/01/20 09:01 Quetiapine Fumarate (SEROqueL) 25 mg DAILY ORAL 12/26/19 09:00 02/09/20 08:59 01/01/20 09:00 Temazepam (Restoril) 15 mg HSPRN PRN ORAL Insomnia 12/25/19 16:30 01/01/20 16:29 Temazepam (Restoril) 15 mg HSPRN PRN ORAL Insomnia 12/31/19 15:00 01/07/20 14:59 Trazodone HCl (Desyrel) 25 mg BEDTIME ORAL 12/25/19 21:00 01/24/20 20:59 12/31/19 20:51 Assessment/Plan Assessment/Plan ASSESSMENT Sepsis Pneumonia, probably aspiration UTI Acute encephalopathy Severe dysphagia High aspiration risk Protein calorie malnutrition Alzheimer dementia Hypothyroidism PLAN OF CARE MS floor CT head ->no acute IC pathology CTA-> no PE , + bibasilar consolidation abx as per ID recs O2 titrate to keep sat above 92% HHN fup with CXR in am diet texture as per speech therapist recommendation aspiration precaution on Megace protein supplement as per RD recs GI follows, family not sure about G-tube DVT prophylaxis gentle IV hydration TSH WNL , resume levothyroxine supportive care DNR/DNI status case discussed and evaluated by supervising physician Yamila Swanson INSPECTOR [employer] CLERK Jan 01, 2020 10:04
[2020-01-01 12:00] VITALS: BP 156/82
--- NOTE | 2020-01-01 12:20 | Nephrology Progress Note ---
Assessment/Plan Problem List: (1) Dehydration (2) Electrolyte imbalance (3) Alzheimer's dementia Assessment Electrolyte imbalance Toxic metabolic encephalopathy Sepsis Alzheimer's dementia, depression, anxiety Plan December 31: Renal parameters and electrolytes stable. Continue as is. December 30: No labs drawn today. Stable from renal standpoint of view. Will check lab tomorrow. December 29: Abnormal electrolytes addressed. Stable from renal standpoint today. Previously: KCl 20 M EQ today12/28 Change IV to D5W K-Phos IV given12/27 Antibiotics Patient DNR/DNI No artificial means of feeding at this time Continue current care Subjective ROS Limited/Unobtainable: No Constitutional: Reports: malaise Objective Objective Last 24 Hour Vital Signs Date Time Temp Pulse Resp B/P (MAP) Pulse Ox O2 Delivery O2 Flow Rate FiO2 01/01/20 09:00 Nasal Cannula 3.0 01/01/20 08:00 98.3 86 17 157/90 (112) 96 01/01/20 04:00 96.9 77 22 149/69 (95) 93 01/01/20 00:00 97.3 72 22 126/70 (88) 95 12/31/19 21:00 Nasal Cannula 3.0 12/31/19 20:26 94 Nasal Cannula 3.0 32 12/31/19 20:00 97.9 65 20 144/78 (100) 94 12/31/19 16:00 98.7 77 21 130/72 (91) 99 Intake and Output 12/31/19 01/01/20 19:00 07:00 Intake Total 660 ml 210 ml Output Total 700 ml Balance 660 ml -490 ml Intake IV Total 660 ml 210 ml Output Urine Total 700 ml Laboratory Tests 12/31/19 15:38: Stool Occult Blood Negative 01/01/20 08:40: White Blood Count 11.3H, Red Blood Count 4.34, Hemoglobin 13.5, Hematocrit 40.1, Mean Corpuscular Volume 93, Mean Corpuscular Hemoglobin 31.2H, Mean Corpuscular Hemoglobin Concent 33.8, Red Cell Distribution Width 11.7, Platelet Count 230, Mean Platelet Volume 6.6, Neutrophils (%) (Auto) 76.9H, Lymphocytes (%) (Auto) 11.2L, Monocytes (%) (Auto) 9.2, Eosinophils (%) (Auto) 1.4, Basophils (%) (Auto) 1.3, Sodium Level 144, Potassium Level 3.5, Chloride Level 108H, Carbon Dioxide Level 26, Anion Gap 10, Blood Urea Nitrogen 8, Creatinine 0.7, Estimat Glomerular Filtration Rate > 60, Glucose Level 100, Calcium Level 8.6, Phosphorus Level 2.7, Magnesium Level 1.8, Total Bilirubin 0.7, Direct Bilirubin 0.2, Aspartate Amino Transf (AST/SGOT) 27, Alanine Aminotransferase (ALT/SGPT) 28, Alkaline Phosphatase 82, Total Protein 6.1L, Albumin 2.4L Height (Feet): 5 Height (Inches): 4.00 Weight (Pounds): 130 General Appearance: no apparent distress Objective No change Daniel Mathews MD Jan 01, 2020 12:20
[2020-01-01 16:00] VITALS: BP 146/90
--- NOTE | 2020-01-01 17:56 | General Progress Note ---
Subjective Allergies: Coded Allergies: MORPHINE (Verified Allergy, Unknown, 12/26/19) Patient's SNF notes morphine allergy in RX list Subjective more calm today Objective Last 24 Hour Vital Signs Date Time Temp Pulse Resp B/P (MAP) Pulse Ox O2 Delivery O2 Flow Rate FiO2 01/01/20 16:00 98.2 72 19 146/90 (108) 97 01/01/20 12:00 98.3 76 20 156/82 (106) 97 01/01/20 09:00 Nasal Cannula 3.0 01/01/20 08:00 98.3 86 17 157/90 (112) 96 01/01/20 04:00 96.9 77 22 149/69 (95) 93 01/01/20 00:00 97.3 72 22 126/70 (88) 95 12/31/19 21:00 Nasal Cannula 3.0 12/31/19 20:26 94 Nasal Cannula 3.0 32 12/31/19 20:00 97.9 65 20 144/78 (100) 94 Intake and Output 12/31/19 01/01/20 19:00 07:00 Intake Total 660 ml 260 ml Output Total 700 ml Balance 660 ml -440 ml Intake IV Total 660 ml 260 ml Output Urine Total 700 ml Laboratory Tests 01/01/20 08:40: White Blood Count 11.3H, Red Blood Count 4.34, Hemoglobin 13.5, Hematocrit 40.1, Mean Corpuscular Volume 93, Mean Corpuscular Hemoglobin 31.2H, Mean Corpuscular Hemoglobin Concent 33.8, Red Cell Distribution Width 11.7, Platelet Count 230, Mean Platelet Volume 6.6, Neutrophils (%) (Auto) 76.9H, Lymphocytes (%) (Auto) 11.2L, Monocytes (%) (Auto) 9.2, Eosinophils (%) (Auto) 1.4, Basophils (%) (Auto) 1.3, Sodium Level 144, Potassium Level 3.5, Chloride Level 108H, Carbon Dioxide Level 26, Anion Gap 10, Blood Urea Nitrogen 8, Creatinine 0.7, Estimat Glomerular Filtration Rate > 60, Glucose Level 100, Calcium Level 8.6, Phosphorus Level 2.7, Magnesium Level 1.8, Total Bilirubin 0.7, Direct Bilirubin 0.2, Aspartate Amino Transf (AST/SGOT) 27, Alanine Aminotransferase (ALT/SGPT) 28, Alkaline Phosphatase 82, Total Protein 6.1L, Albumin 2.4L Height (Feet): 5 Height (Inches): 4.00 Weight (Pounds): 130 Objective Thin woman NCAT supple Coarse BS RR abd soft ND no edema Assessment/Plan Assessment/Plan: Assessment 1. Alzheimer disease / malnutrition 2. Anxiety and depression. 3. Hypercholesterolemia. 4. Hypothyroidism. 5. FTT Recommendations on puree diet poor po intake dietitian input appreciated Possible PEG, pending family decision will f/u Jaye Webb MD Jan 01, 2020 17:56
[2020-01-01] MEDS: DAPTOmycin 250 MG in NS 55 ML IV SCH (18:14)
[2020-01-01 20:00] VITALS: BP 132/67
[2020-01-01] MEDS: TraZODone HCl 25 mg tablet ORAL SCH (21:53)
[2020-01-02] VITALS: BP 126/69
[2020-01-02 04:06] VITALS: BP 126/62
[2020-01-02 07:35] LABS: HEMATOCRIT 39.8 % (37.0-47.0); HEMOGLOBIN 13.4 G/DL (12.0-16.0); MEAN CORPUSCULAR VOLUME 92 FL (80-99); PLATELET COUNT 259 K/UL (150-450); RED BLOOD COUNT 4.31 M/UL (4.20-5.40); RED CELL DISTRIBUTION WIDTH 11.9 % (11.6-14.8); WHITE BLOOD COUNT 18.1 K/UL (4.8-10.8)
[2020-01-02 08:07] LABS: ANION GAP 11 mmol/L (5-15); BLOOD UREA NITROGEN 14 mg/dL (7-18); CALCIUM 9.2 MG/DL (8.5-10.1); CARBON DIOXIDE 25 MMOL/L (21-32); CHLORIDE 106 MMOL/L (98-107); CREATININE 0.8 MG/DL (0.55-1.30); POTASSIUM 3.6 MMOL/L (3.5-5.1); SODIUM 142 MMOL/L (136-145)
[2020-01-02 09:00] VITALS: BP 156/81
[2020-01-02] MEDS: Megace 400mg/10ml Susp ORAL SCH (09:19)
[2020-01-02] MEDS: Heparin 5000 units/ml inj SUBQ SCH ×2 (09:21→21:53)
--- NOTE | 2020-01-02 10:26 | Nephrology Progress Note ---
Assessment/Plan Problem List: (1) Dehydration (2) Electrolyte imbalance (3) Alzheimer's dementia Assessment Electrolyte imbalance Toxic metabolic encephalopathy Sepsis Alzheimer's dementia, depression, anxiety Plan January 01: Renal parameters stable. White blood cells shot up to 18,000. Pulmonary source suspected. Will order chest x-ray and UA. Stable from renal standpoint of view. December 31: Renal parameters and electrolytes stable. Continue as is. December 30: No labs drawn today. Stable from renal standpoint of view. Will check lab tomorrow. December 29: Abnormal electrolytes addressed. Stable from renal standpoint today. Previously: KCl 20 M EQ today12/28 Change IV to D5W K-Phos IV given12/27 Antibiotics Patient DNR/DNI No artificial means of feeding at this time Continue current care Subjective ROS Limited/Unobtainable: No Constitutional: Reports: malaise, weakness Objective Objective Last 24 Hour Vital Signs Date Time Temp Pulse Resp B/P (MAP) Pulse Ox O2 Delivery O2 Flow Rate FiO2 01/02/20 09:00 Nasal Cannula 3.0 01/02/20 09:00 98.9 89 18 156/81 (106) 93 01/02/20 08:03 94 Nasal Cannula 3.0 32 01/02/20 04:06 99.5 85 18 126/62 (83) 92 01/02/20 00:00 98.2 85 20 126/69 (88) 92 01/01/20 21:00 Nasal Cannula 3.0 01/01/20 20:00 97.4 92 20 132/67 (88) 92 01/01/20 19:56 94 Nasal Cannula 3.0 32 01/01/20 16:00 98.2 72 19 146/90 (108) 97 01/01/20 12:00 98.3 76 20 156/82 (106) 97 Intake and Output 01/01/20 01/02/20 19:00 07:00 Intake Total 610 ml Output Total 600 ml Balance 610 ml -600 ml Intake IV Total 610 ml Output Urine Total 600 ml # Voids 2 Laboratory Tests 01/02/20 07:10: White Blood Count 18.1#H, Red Blood Count 4.31, Hemoglobin 13.4, Hematocrit 39.8, Mean Corpuscular Volume 92, Mean Corpuscular Hemoglobin 31.2H, Mean Corpuscular Hemoglobin Concent 33.8, Red Cell Distribution Width 11.9, Platelet Count 259, Mean Platelet Volume 6.7, Neutrophils (%) (Auto) , Lymphocytes (%) (Auto) , Monocytes (%) (Auto) , Eosinophils (%) (Auto) , Basophils (%) (Auto) , Differential Total Cells Counted 100, Neutrophils % (Manual) 91H, Lymphocytes % (Manual) 5L, Monocytes % (Manual) 3, Eosinophils % (Manual) 0, Basophils % (Manual) 0, Band Neutrophils 1, Platelet Estimate Adequate, Platelet Morphology Normal, Red Blood Cell Morphology Normal, Sodium Level 142, Potassium Level 3.6, Chloride Level 106, Carbon Dioxide Level 25, Anion Gap 11, Blood Urea Nitrogen 14, Creatinine 0.8, Estimat Glomerular Filtration Rate > 60, Glucose Level 94, Calcium Level 9.2 Height (Feet): 5 Height (Inches): 4.00 Weight (Pounds): 130 General Appearance: mild distress Cardiovascular: tachycardia Respiratory/Chest: decreased breath sounds, rhonchi - bilaterally Abdomen: distended Objective No change Daniel Mathews MD Jan 02, 2020 10:26
--- NOTE | 2020-01-02 10:32 | General Progress Note ---
Subjective ROS Limited/Unobtainable: No Allergies: Coded Allergies: MORPHINE (Verified Allergy, Unknown, 12/26/19) Patient's SNF notes morphine allergy in RX list Objective Last 24 Hour Vital Signs Date Time Temp Pulse Resp B/P (MAP) Pulse Ox O2 Delivery O2 Flow Rate FiO2 01/02/20 09:00 Nasal Cannula 3.0 01/02/20 09:00 98.9 89 18 156/81 (106) 93 01/02/20 08:03 94 Nasal Cannula 3.0 32 01/02/20 04:06 99.5 85 18 126/62 (83) 92 01/02/20 00:00 98.2 85 20 126/69 (88) 92 01/01/20 21:00 Nasal Cannula 3.0 01/01/20 20:00 97.4 92 20 132/67 (88) 92 01/01/20 19:56 94 Nasal Cannula 3.0 32 01/01/20 16:00 98.2 72 19 146/90 (108) 97 01/01/20 12:00 98.3 76 20 156/82 (106) 97 Intake and Output 01/01/20 01/02/20 19:00 07:00 Intake Total 610 ml Output Total 600 ml Balance 610 ml -600 ml Intake IV Total 610 ml Output Urine Total 600 ml # Voids 2 Laboratory Tests 01/02/20 07:10: White Blood Count 18.1#H, Red Blood Count 4.31, Hemoglobin 13.4, Hematocrit 39.8, Mean Corpuscular Volume 92, Mean Corpuscular Hemoglobin 31.2H, Mean Corpuscular Hemoglobin Concent 33.8, Red Cell Distribution Width 11.9, Platelet Count 259, Mean Platelet Volume 6.7, Neutrophils (%) (Auto) , Lymphocytes (%) (Auto) , Monocytes (%) (Auto) , Eosinophils (%) (Auto) , Basophils (%) (Auto) , Differential Total Cells Counted 100, Neutrophils % (Manual) 91H, Lymphocytes % (Manual) 5L, Monocytes % (Manual) 3, Eosinophils % (Manual) 0, Basophils % (Manual) 0, Band Neutrophils 1, Platelet Estimate Adequate, Platelet Morphology Normal, Red Blood Cell Morphology Normal, Sodium Level 142, Potassium Level 3.6, Chloride Level 106, Carbon Dioxide Level 25, Anion Gap 11, Blood Urea Nitrogen 14, Creatinine 0.8, Estimat Glomerular Filtration Rate > 60, Glucose Level 94, Calcium Level 9.2 Height (Feet): 5 Height (Inches): 4.00 Weight (Pounds): 130 General Appearance: no apparent distress EENT: normal ENT inspection Neck: supple Cardiovascular: normal rate Respiratory/Chest: decreased breath sounds Abdomen: hypoactive bowel sounds Extremities: non-tender Assessment/Plan Assessment/Plan: 1. Alzheimer disease. 2. Anxiety and depression. 3. Hypercholesterolemia. 4. Hypothyroidism. 5. FTT on puree diet poor po intake dietitian in put appreciated needs peg but family not agreeing at this time will Kilo Ferrari MD Jan 02, 2020 10:32
[2020-01-02 10:56] LABS: APPEARANCE,URINE SLIGHTLY CLOUDY; BILIRUBIN, URINE NEGATIVE (NEGATIVE); GLUCOSE, URINE (UA) NEGATIVE (NEGATIVE); KETONES,URINE 1+ (NEGATIVE); LEUKOCYTE ESTERASE ,URINE 1+ (NEGATIVE); NITRITE,URINE NEGATIVE (NEGATIVE); PH,URINE 5 (4.5-8.0); PROTEIN,URINE 2+ (NEGATIVE); UROBILINOGEN,URINE NORMAL MG/DL (0.0-1.0)
--- NOTE | 2020-01-02 11:12 | Infectious Diseases Prog Note ---
Assessment/Plan Assessment: Sepsis UTI PNA- report of bright red blood upon suctioning per RN- no PE- l ikely aspiration PNA -12/25 CTA chest: Enhancement is not very robust and there is some motion. No apparent central pulmonary embolus. Bibasilar consolidation. Irregular opacities/nodular infiltrates in the lingula, right middle and right lower lobes. rapid COVID PCR neg R/o probable bacteremia -12/26 u/a no pyuria,n it +, leuk +2 -12/25 ucx >100k VRE -12/24 CXR: Bilateral lower lobe atelectasis versus infiltrate. u/a 30-40, nit neg, leuk +2; ucx Organism 1 MIXED UROGENITAL CONTAMINANTS COLONY COUNT: 10,000 - 20,000 CFU/ML rapid COVID PCR neg Influenza screen neg Bcx p Fever; Sp Leukocytosis; increasing Acute encephalopathy -CT head: No acute intracranial process.nvolutional changes with small vessel disease. Alzheimer' disease MDD HLD hypothyroidism anxiety disorder SNF resident ([facility]) Plan: - IV Daptomycin #/ for VRE UTI -monitor CPK -12/31 SP Cefepime #8 -12/28 SP IV Vancomycin #5 -12/24 SP Ceftriaxone x1, Azithromycin x1 -f/u cx -Monitor CBC/CMP, temperatures -f/u sp cx, TB spot -aspiration precautions -DNR/DNI -Bcx x2 -f/u ua, CXR -Cdiff if diarrhea -CBC, CMP, lipase am Thank you for consulting [facility]. Will continue to follow along with you. Discussed with RN and pharmacy staff.. Subjective Allergies: Coded Allergies: MORPHINE (Verified Allergy, Unknown, 12/26/19) Patient's SNF notes morphine allergy in RX list afebrile >72hrs no leukocytosis Bcx NTD Objective Last 24 Hour Vital Signs Date Time Temp Pulse Resp B/P (MAP) Pulse Ox O2 Delivery O2 Flow Rate FiO2 01/02/20 09:00 Nasal Cannula 3.0 01/02/20 09:00 98.9 89 18 156/81 (106) 93 01/02/20 08:03 94 Nasal Cannula 3.0 32 01/02/20 04:06 99.5 85 18 126/62 (83) 92 01/02/20 00:00 98.2 85 20 126/69 (88) 92 01/01/20 21:00 Nasal Cannula 3.0 01/01/20 20:00 97.4 92 20 132/67 (88) 92 01/01/20 19:56 94 Nasal Cannula 3.0 32 01/01/20 16:00 98.2 72 19 146/90 (108) 97 01/01/20 12:00 98.3 76 20 156/82 (106) 97 Height (Feet): 5 Height (Inches): 4.00 Weight (Pounds): 130 General Appearance: alert, moderate distress - Confused, thin Head: atraumatic Eyes: bilateral eye normal inspection ENT: normal ENT inspection, moist mucus membranes Neck: normal inspection, supple Respiratory: normal inspection, decreased breath sounds, crackles - Basilar Cardiovascular #1: regular rate, rhythm, no edema Gastrointestinal: normal inspection, normal bowel sounds, soft Laboratory Tests Test 01/02/20 07:10 01/02/20 10:25 White Blood Count 18.1 K/UL (4.8-10.8) #H Red Blood Count 4.31 M/UL (4.20-5.40) Hemoglobin 13.4 G/DL (12.0-16.0) Hematocrit 39.8 % (37.0-47.0) Mean Corpuscular Volume 92 FL (80-99) Mean Corpuscular Hemoglobin 31.2 PG (27.0-31.0) H Mean Corpuscular Hemoglobin Concent 33.8 G/DL (32.0-36.0) Red Cell Distribution Width 11.9 % (11.6-14.8) Platelet Count 259 K/UL (150-450) Mean Platelet Volume 6.7 FL (6.5-10.1) Neutrophils (%) (Auto) % (45.0-75.0) Lymphocytes (%) (Auto) % (20.0-45.0) Monocytes (%) (Auto) % (1.0-10.0) Eosinophils (%) (Auto) % (0.0-3.0) Basophils (%) (Auto) % (0.0-2.0) Differential Total Cells Counted 100 Neutrophils % (Manual) 91 % (45-75) H Lymphocytes % (Manual) 5 % (20-45) L Monocytes % (Manual) 3 % (1-10) Eosinophils % (Manual) 0 % (0-3) Basophils % (Manual) 0 % (0-2) Band Neutrophils 1 % (0-8) Platelet Estimate Adequate Platelet Morphology Normal Red Blood Cell Morphology Normal Sodium Level 142 MMOL/L (136-145) Potassium Level 3.6 MMOL/L (3.5-5.1) Chloride Level 106 MMOL/L (98-107) Carbon Dioxide Level 25 MMOL/L (21-32) Anion Gap 11 mmol/L (5-15) Blood Urea Nitrogen 14 mg/dL (7-18) Creatinine 0.8 MG/DL (0.55-1.30) Estimat Glomerular Filtration Rate > 60 mL/min (>60) Glucose Level 94 MG/DL (74-106) Calcium Level 9.2 MG/DL (8.5-10.1) Urine Color Pending Urine Appearance Pending Urine pH Pending Urine Specific [place] Pending Urine Protein Pending Urine Glucose (UA) Pending Urine Ketones Pending Urine Blood Pending Urine Nitrite Pending Urine Bilirubin Pending Urine Urobilinogen Pending Urine Leukocyte Esterase Pending Urine RBC Pending Urine WBC Pending Urine Squamous Epithelial Cells Pending Urine Bacteria Pending Current Medications Medications (Trade) Dose Ordered Sig/Kimberley Route PRN Reason Start Time Stop Time Status Last Admin Dose Admin Acetaminophen (Tylenol) 650 mg Q4H PRN ORAL fever 12/25/19 16:30 01/24/20 16:29 12/26/19 04:48 Acetaminophen (Tylenol) 650 mg Q4H PRN RECTAL Mild Pain (Pain Scale 1-3) 12/26/19 15:30 01/25/20 15:29 12/27/19 16:31 Albuterol/ Ipratropium (Albuterol/ Ipratropium) 3 ml Q4H PRN HHN sob 12/31/19 10:00 01/05/20 09:59 Daptomycin 250 mg/ Sodium Chloride 55 ml @ 100 mls/hr Q24H IV 12/29/19 18:00 01/05/20 17:59 01/01/20 18:14 Dextrose 1,000 ml @ 50 mls/hr Q20H IV 12/29/19 12:30 01/28/20 12:29 01/01/20 21:53 Heparin Sodium (Porcine) (Heparin 5000 units/ml) 5,000 units EVERY 12 HOURS SUBQ 12/26/19 09:00 02/09/20 08:59 01/02/20 09:21 Levothyroxine Sodium (Synthroid) 50 mcg QHS ORAL 12/31/19 21:00 01/30/20 20:59 12/31/19 20:51 Lorazepam (Ativan 2mg/ml 1ml) 0.5 mg EVERY HOUR PRN IV For Anxiety 12/27/19 22:00 01/03/20 21:59 12/28/19 05:32 Megestrol Acetate (Megace) 400 mg DAILY ORAL 12/30/19 09:00 03/29/20 08:59 01/02/20 09:19 Ondansetron HCl (Zofran) 4 mg Q6H PRN IVP Nausea & Vomiting 12/25/19 16:30 01/24/20 16:29 Potassium Chloride (K-Dur) 20 meq TWICE A DAY ORAL 12/30/19 18:00 03/29/20 17:59 01/02/20 09:19 Quetiapine Fumarate (SEROqueL) 25 mg DAILY ORAL 12/26/19 09:00 02/09/20 08:59 01/02/20 09:19 Temazepam (Restoril) 15 mg HSPRN PRN ORAL Insomnia 12/31/19 15:00 01/07/20 14:59 Trazodone HCl (Desyrel) 25 mg BEDTIME ORAL 12/25/19 21:00 01/24/20 20:59 01/01/20 21:53 Aneta Camacho M.D. Jan 02, 2020 11:12
[2020-01-02 11:26] LABS: COLOR,URINE YELLOW
--- NOTE | 2020-01-02 11:47 | Pulmonology Progress Note ---
Subjective ROS Limited/Unobtainable: No Allergies: Coded Allergies: MORPHINE (Verified Allergy, Unknown, 12/26/19) Patient's SNF notes morphine allergy in RX list Objective Last 24 Hour Vital Signs Date Time Temp Pulse Resp B/P (MAP) Pulse Ox O2 Delivery O2 Flow Rate FiO2 01/02/20 09:00 Nasal Cannula 3.0 01/02/20 09:00 98.9 89 18 156/81 (106) 93 01/02/20 08:03 94 Nasal Cannula 3.0 32 01/02/20 04:06 99.5 85 18 126/62 (83) 92 01/02/20 00:00 98.2 85 20 126/69 (88) 92 01/01/20 21:00 Nasal Cannula 3.0 01/01/20 20:00 97.4 92 20 132/67 (88) 92 01/01/20 19:56 94 Nasal Cannula 3.0 32 01/01/20 16:00 98.2 72 19 146/90 (108) 97 01/01/20 12:00 98.3 76 20 156/82 (106) 97 Intake and Output 01/01/20 01/02/20 19:00 07:00 Intake Total 610 ml Output Total 600 ml Balance 610 ml -600 ml Intake IV Total 610 ml Output Urine Total 600 ml # Voids 2 General Appearance: cachetic, other - bedridden frail elderly female in NAD HEENT: normocephalic, atraumatic Respiratory: chest wall non-tender, lungs clear - with moderate air exchange Cardiovascular: normal peripheral pulses, normal rate Abdomen: normal bowel sounds, soft, non tender Extremities: no edema, pedal pulses normal Neurologic: abnormal gait, alert - forgetful , other - spastic LE Musculoskeletal: atrophy Laboratory Tests 01/02/20 07:10: White Blood Count 18.1#H, Red Blood Count 4.31, Hemoglobin 13.4, Hematocrit 39.8 , Mean Corpuscular Volume 92, Mean Corpuscular Hemoglobin 31.2H, Mean Corpuscular Hemoglobin Concent 33.8, Red Cell Distribution Width 11.9, Platelet Count 259, Mean Platelet Volume 6.7, Neutrophils (%) (Auto) , Lymphocytes (%) (Auto) , Monocytes (%) (Auto) , Eosinophils (%) (Auto) , Basophils (%) (Auto) , Differential Total Cells Counted 100, Neutrophils % (Manual) 91H, Lymphocytes % (Manual) 5L, Monocytes % (Manual) 3, Eosinophils % (Manual) 0, Basophils % (Manual) 0, Band Neutrophils 1, Platelet Estimate Adequate, Platelet Morphology Normal, Red Blood Cell Morphology Normal, Sodium Level 142, Potassium Level 3.6, Chloride Level 106, Carbon Dioxide Level 25, Anion Gap 11, Blood Urea Nitrogen 14, Creatinine 0.8, Estimat Glomerular Filtration Rate > 60, Glucose Level 94, Calcium Level 9.2 01/02/20 10:25: Urine Color Yellow, Urine Appearance Slightly cloudy, Urine pH 5, Urine Specific [place] 1.015, Urine Protein 2+H, Urine Glucose (UA) Negative, Urine Ketones 1+H , Urine Blood 5+H, Urine Nitrite Negative, Urine Bilirubin Negative, Urine Urobilinogen Normal, Urine Leukocyte Esterase 1+H, Urine RBC 2-4H, Urine WBC 2- 4, Urine Squamous Epithelial Cells ModerateH, Urine Bacteria Few, Urine Yeast FewH Current Medications Medications (Trade) Dose Ordered Sig/Kimberley Route PRN Reason Start Time Stop Time Status Last Admin Dose Admin Acetaminophen (Tylenol) 650 mg Q4H PRN ORAL fever 12/25/19 16:30 01/24/20 16:29 12/26/19 04:48 Acetaminophen (Tylenol) 650 mg Q4H PRN RECTAL Mild Pain (Pain Scale 1-3) 12/26/19 15:30 01/25/20 15:29 12/27/19 16:31 Albuterol/ Ipratropium (Albuterol/ Ipratropium) 3 ml Q4H PRN HHN sob 12/31/19 10:00 01/05/20 09:59 Daptomycin 250 mg/ Sodium Chloride 55 ml @ 100 mls/hr Q24H IV 12/29/19 18:00 01/05/20 17:59 01/01/20 18:14 Dextrose 1,000 ml @ 50 mls/hr Q20H IV 12/29/19 12:30 01/28/20 12:29 01/01/20 21:53 Heparin Sodium (Porcine) (Heparin 5000 units/ml) 5,000 units EVERY 12 HOURS SUBQ 12/26/19 09:00 02/09/20 08:59 01/02/20 09:21 Levothyroxine Sodium (Synthroid) 50 mcg QHS ORAL 12/31/19 21:00 01/30/20 20:59 12/31/19 20:51 Lorazepam (Ativan 2mg/ml 1ml) 0.5 mg EVERY HOUR PRN IV For Anxiety 12/27/19 22:00 01/03/20 21:59 12/28/19 05:32 Megestrol Acetate (Megace) 400 mg DAILY ORAL 12/30/19 09:00 03/29/20 08:59 01/02/20 09:19 Ondansetron HCl (Zofran) 4 mg Q6H PRN IVP Nausea & Vomiting 12/25/19 16:30 01/24/20 16:29 Potassium Chloride (K-Dur) 20 meq TWICE A DAY ORAL 12/30/19 18:00 03/29/20 17:59 01/02/20 09:19 Quetiapine Fumarate (SEROqueL) 25 mg DAILY ORAL 12/26/19 09:00 02/09/20 08:59 01/02/20 09:19 Temazepam (Restoril) 15 mg HSPRN PRN ORAL Insomnia 12/31/19 15:00 01/07/20 14:59 Trazodone HCl (Desyrel) 25 mg BEDTIME ORAL 12/25/19 21:00 01/24/20 20:59 01/01/20 21:53 Assessment/Plan Problems: (1) Sepsis (2) Altered mental status (3) Anxiety (4) Depression (5) Alzheimer's dementia (6) Poor historian Assessment/Plan wbc higher no new events on Pureed diet andujar culture still febrile check electrolytes symptomatic treatment dvt prophylaxis. d/w son extensively, pt's POLST says no artificial feeding pts son considering hospice. Ck Mcclelland MD Jan 02, 2020 11:46
[2020-01-02 12:00] VITALS: BP 129/62
--- NOTE | 2020-01-02 13:55 | Diagnostic Imaging Report ---
Indication: Shortness of breath Technique: One view of the chest Comparison: On 12/27/2019 Findings: Bands of atelectasis are seen in the left mid and lower lung. There may be some retrocardiac consolidation as well. The right lung and bilateral pleural spaces are clear. The heart size is normal Impression: Left mid and lower lung atelectasis Possible developing retrocardiac consolidation, could indicate pneumonia if real
[2020-01-02 16:00] VITALS: BP 140/71
[2020-01-02] MEDS: DAPTOmycin 250 MG in NS 55 ML IV SCH (17:31)
[2020-01-02 20:00] VITALS: BP 129/81
[2020-01-02] MEDS: TraZODone HCl 25 mg tablet ORAL SCH (21:48)
[2020-01-03] VITALS: BP 125/86
[2020-01-03 04:00] VITALS: BP 129/68
[2020-01-03 06:41] LABS: HEMATOCRIT 38.9 % (37.0-47.0); HEMOGLOBIN 12.9 G/DL (12.0-16.0); MEAN CORPUSCULAR VOLUME 94 FL (80-99); PLATELET COUNT 206 K/UL (150-450); RED BLOOD COUNT 4.15 M/UL (4.20-5.40); RED CELL DISTRIBUTION WIDTH 11.7 % (11.6-14.8)
[2020-01-03 07:17] LABS: ALANINE AMINOTRANSFERASE 29 U/L (12-78); ALBUMIN 2.5 G/DL (3.4-5.0); ALBUMIN/GLOBULIN RATIO 0.6 (1.0-2.7); ALKALINE PHOSPHATASE 78 U/L (46-116); ANION GAP 7 mmol/L (5-15); ASPARTATE AMINO TRANSFERASE 37 U/L (15-37); BILIRUBIN,TOTAL 0.7 MG/DL (0.2-1.0); BLOOD UREA NITROGEN 10 mg/dL (7-18); CALCIUM 9.4 MG/DL (8.5-10.1); CARBON DIOXIDE 27 MMOL/L (21-32); CHLORIDE 106 MMOL/L (98-107); CREATININE 0.8 MG/DL (0.55-1.30); PHOSPHORUS 2.7 MG/DL (2.5-4.9); POTASSIUM 4.4 MMOL/L (3.5-5.1); SODIUM 140 MMOL/L (136-145)
[2020-01-03 08:00] VITALS: BP 122/61
--- NOTE | 2020-01-03 08:02 | General Progress Note ---
Subjective ROS Limited/Unobtainable: No Allergies: Coded Allergies: MORPHINE (Verified Allergy, Unknown, 12/26/19) Patient's SNF notes morphine allergy in RX list Objective Last 24 Hour Vital Signs Date Time Temp Pulse Resp B/P (MAP) Pulse Ox O2 Delivery O2 Flow Rate FiO2 01/03/20 04:00 98.6 82 20 129/68 (88) 98 01/03/20 00:00 97.5 82 18 125/86 (99) 95 01/02/20 20:57 Nasal Cannula 3.0 01/02/20 20:00 98.1 83 18 129/81 (97) 94 01/02/20 19:54 94 Nasal Cannula 3.0 32 01/02/20 16:00 97.5 85 18 140/71 (94) 95 01/02/20 12:00 97.8 77 18 129/62 (84) 95 01/02/20 09:00 Nasal Cannula 3.0 01/02/20 09:00 98.9 89 18 156/81 (106) 93 01/02/20 08:03 94 Nasal Cannula 3.0 32 Intake and Output 01/02/20 01/03/20 19:00 07:00 Output Total 220 ml Balance -220 ml Output Urine Total 220 ml # Voids 2 Laboratory Tests 01/02/20 10:25: Urine Color Yellow, Urine Appearance Slightly cloudy, Urine pH 5, Urine Specific [place] 1.015, Urine Protein 2+H, Urine Glucose (UA) Negative, Urine Ketones 1+H , Urine Blood 5+H, Urine Nitrite Negative, Urine Bilirubin Negative, Urine Urobilinogen Normal, Urine Leukocyte Esterase 1+H, Urine RBC 2-4H, Urine WBC 2- 4, Urine Squamous Epithelial Cells ModerateH, Urine Bacteria Few, Urine Yeast FewH 01/03/20 05:40: White Blood Count 9.0#, Red Blood Count 4.15L, Hemoglobin 12.9, Hematocrit 38.9, Mean Corpuscular Volume 94, Mean Corpuscular Hemoglobin 31.1H, Mean Corpuscular Hemoglobin Concent 33.2, Red Cell Distribution Width 11.7, Platelet Count 206, Mean Platelet Volume 6.8, Neutrophils (%) (Auto) , Lymphocytes (%) (Auto) , Monocytes (%) (Auto) , Eosinophils (%) (Auto) , Basophils (%) (Auto) , Neutrophils % (Manual) [Pending], Lymphocytes % (Manual) [Pending], Platelet Estimate [Pending], Platelet Morphology [Pending], Sodium Level 140, Potassium Level 4.4, Chloride Level 106, Carbon Dioxide Level 27, Anion Gap 7, Blood Urea Nitrogen 10, Creatinine 0.8, Estimat Glomerular Filtration Rate > 60, Glucose Level 90, Calcium Level 9.4, Phosphorus Level 2.7, Magnesium Level 2.0, Total Bilirubin 0.7, Aspartate Amino Transf (AST/SGOT) 37, Alanine Aminotransferase (ALT/SGPT) 29, Alkaline Phosphatase 78, C-Reactive Protein, Quantitative 5.3H, Pro-B-Type Natriuretic Peptide 2146H, Total Protein 6.4, Albumin 2.5L, Globulin 3.9, Albumin/Globulin Ratio 0.6L, Lipase 115 Height (Feet): 5 Height (Inches): 4.00 Weight (Pounds): 130 General Appearance: lethargic EENT: normal ENT inspection Neck: supple Cardiovascular: normal rate Respiratory/Chest: decreased breath sounds Abdomen: hypoactive bowel sounds Extremities: non-tender Assessment/Plan Assessment/Plan: 1. Alzheimer disease. 2. Anxiety and depression. 3. Hypercholesterolemia. 4. Hypothyroidism. 5. FTT on puree diet poor po intake dietitian in put appreciated needs peg but family not agreeing at this time will Kilo Ferrari MD Jan 03, 2020 08:02
[2020-01-03] MEDS: Megace 400mg/10ml Susp ORAL SCH (08:51)
[2020-01-03] MEDS: Heparin 5000 units/ml inj SUBQ SCH ×2 (08:51→20:32)
--- NOTE | 2020-01-03 10:20 | Nephrology Progress Note ---
Assessment/Plan Problem List: (1) Dehydration (2) Electrolyte imbalance (3) Alzheimer's dementia Assessment Electrolyte imbalance Toxic metabolic encephalopathy Sepsis Alzheimer's dementia, depression, anxiety Plan January 02: Renal parameters stable. White blood cells now within normal limit. Continue per consultants. Chest x-ray: Left mid and lower lung atelectasis , Possible developing retrocardiac consolidation, could indicate pneumonia if real January 01: Renal parameters stable. White blood cells shot up to 18,000. Pulmonary source suspected. Will order chest x-ray and UA. Stable from renal standpoint of view. December 31: Renal parameters and electrolytes stable. Continue as is. December 30: No labs drawn today. Stable from renal standpoint of view. Will ch michael lab tomorrow. December 29: Abnormal electrolytes addressed. Stable from renal standpoint today. Previously: KCl 20 M EQ today12/28 Change IV to D5W K-Phos IV given12/27 Antibiotics Patient DNR/DNI No artificial means of feeding at this time Continue current care Subjective ROS Limited/Unobtainable: No Constitutional: Reports: malaise Objective Objective Last 24 Hour Vital Signs Date Time Temp Pulse Resp B/P (MAP) Pulse Ox O2 Delivery O2 Flow Rate FiO2 01/03/20 08:36 93 Nasal Cannula 3.0 32 01/03/20 04:00 98.6 82 20 129/68 (88) 98 01/03/20 00:00 97.5 82 18 125/86 (99) 95 01/02/20 20:57 Nasal Cannula 3.0 01/02/20 20:00 98.1 83 18 129/81 (97) 94 01/02/20 19:54 94 Nasal Cannula 3.0 32 01/02/20 16:00 97.5 85 18 140/71 (94) 95 01/02/20 12:00 97.8 77 18 129/62 (84) 95 Intake and Output 01/02/20 01/03/20 19:00 07:00 Output Total 220 ml Balance -220 ml Output Urine Total 220 ml # Voids 2 Laboratory Tests 01/02/20 10:25: Urine Color Yellow, Urine Appearance Slightly cloudy, Urine pH 5, Urine Specific [place] 1.015, Urine Protein 2+H, Urine Glucose (UA) Negative, Urine Ketones 1+H , Urine Blood 5+H, Urine Nitrite Negative, Urine Bilirubin Negative, Urine Urobilinogen Normal, Urine Leukocyte Esterase 1+H, Urine RBC 2-4H, Urine WBC 2- 4, Urine Squamous Epithelial Cells ModerateH, Urine Bacteria Few, Urine Yeast FewH 01/03/20 05:40: White Blood Count 9.0#, Red Blood Count 4.15L, Hemoglobin 12.9, Hematocrit 38.9, Mean Corpuscular Volume 94, Mean Corpuscular Hemoglobin 31.1H, Mean Corpuscular Hemoglobin Concent 33.2, Red Cell Distribution Width 11.7, Platelet Count 206, Mean Platelet Volume 6.8, Neutrophils (%) (Auto) , Lymphocytes (%) (Auto) , Monocytes (%) (Auto) , Eosinophils (%) (Auto) , Basophils (%) (Auto) , Differential Total Cells Counted 100, Neutrophils % (Manual) 82H, Lymphocytes % (Manual) 8L, Monocytes % (Manual) 4, Eosinophils % (Manual) 1, Basophils % (Manual) 0, Band Neutrophils 5, Platelet Estimate Adequate, Platelet Morphology Normal, Red Blood Cell Morphology Normal, Sodium Level 140, Potassium Level 4.4, Chloride Level 106, Carbon Dioxide Level 27, Anion Gap 7, Blood Urea Nitrogen 10, Creatinine 0.8, Estimat Glomerular Filtration Rate > 60, Glucose Level 90, Calcium Level 9.4, Phosphorus Level 2.7, Magnesium Level 2.0, Total Bilirubin 0.7, Aspartate Amino Transf (AST/SGOT) 37, Alanine Aminotransferase (ALT/SGPT) 29, Alkaline Phosphatase 78, C-Reactive Protein, Quantitative 5.3H, Pro-B-Type Natriuretic Peptide 2146H, Total Protein 6.4, Albumin 2.5L, Globulin 3.9, Albumin/Globulin Ratio 0.6L, Lipase 115 Height (Feet): 5 Height (Inches): 4.00 Weight (Pounds): 130 General Appearance: no apparent distress Objective No change Daniel Mathews MD Jan 03, 2020 10:20
--- NOTE | 2020-01-03 11:48 | Infectious Diseases Prog Note ---
Assessment/Plan Assessment: Sepsis UTI PNA- report of bright red blood upon suctioning per RN- no PE- l ikely aspiration PNA -12/25 CTA chest: Enhancement is not very robust and there is some motion. No apparent central pulmonary embolus. Bibasilar consolidation. Irregular opacities/nodular infiltrates in the lingula, right middle and right lower lobes. rapid COVID PCR neg -12/26 u/a no pyuria,n it +, leuk +2 -12/25 ucx >100k VRE -12/24 CXR: Bilateral lower lobe atelectasis versus infiltrate. u/a 30-40, nit neg, leuk +2; ucx Organism 1 MIXED UROGENITAL CONTAMINANTS COLONY COUNT: 10,000 - 20,000 CFU/ML rapid COVID PCR neg Influenza screen neg Bcx neg Fever; Sp Leukocytosis; increasing- SP -01/01 CXR:Left mid and lower lung atelectasis. Possible developing retrocardiac consolidation, could indicate pneumonia if real ua/ neg Acute encephalopathy -CT head: No acute intracranial process.nvolutional changes with small vessel disease. Alzheimer' disease MDD HLD hypothyroidism anxiety disorder SNF resident ([facility]) Plan: - IV Daptomycin #6/7 for VRE UTI -monitor CPK -12/31 SP Cefepime #8 -12/28 SP IV Vancomycin #5 -12/24 SP Ceftriaxone x1, Azithromycin x1 -f/u cx -Monitor CBC/CMP, temperatures -f/u sp cx, TB spot -aspiration precautions -DNR/DNI Thank you for consulting [facility]. Will continue to follow along with you. Discussed with RN. Subjective Allergies: Coded Allergies: MORPHINE (Verified Allergy, Unknown, 12/26/19) Patient's SNF notes morphine allergy in RX list afebrile leukocytosis resolved Bcx NTD Objective Last 24 Hour Vital Signs Date Time Temp Pulse Resp B/P (MAP) Pulse Ox O2 Delivery O2 Flow Rate FiO2 01/03/20 09:00 Nasal Cannula 3.0 01/03/20 08:36 93 Nasal Cannula 3.0 32 01/03/20 08:00 98.3 83 19 122/61 (81) 93 01/03/20 04:00 98.6 82 20 129/68 (88) 98 01/03/20 00:00 97.5 82 18 125/86 (99) 95 01/02/20 20:57 Nasal Cannula 3.0 01/02/20 20:00 98.1 83 18 129/81 (97) 94 01/02/20 19:54 94 Nasal Cannula 3.0 32 01/02/20 16:00 97.5 85 18 140/71 (94) 95 01/02/20 12:00 97.8 77 18 129/62 (84) 95 Height (Feet): 5 Height (Inches): 4.00 Weight (Pounds): 130 General Appearance: alert, moderate distress - Confused, thin Head: atraumatic Eyes: bilateral eye normal inspection ENT: normal ENT inspection, moist mucus membranes Neck: normal inspection, supple Respiratory: normal inspection, decreased breath sounds, crackles - Basilar Cardiovascular #1: regular rate, rhythm, no edema Gastrointestinal: normal inspection, normal bowel sounds, soft Laboratory Tests Test 01/03/20 05:40 White Blood Count 9.0 K/UL (4.8-10.8) # Red Blood Count 4.15 M/UL (4.20-5.40) L Hemoglobin 12.9 G/DL (12.0-16.0) Hematocrit 38.9 % (37.0-47.0) Mean Corpuscular Volume 94 FL (80-99) Mean Corpuscular Hemoglobin 31.1 PG (27.0-31.0) H Mean Corpuscular Hemoglobin Concent 33.2 G/DL (32.0-36.0) Red Cell Distribution Width 11.7 % (11.6-14.8) Platelet Count 206 K/UL (150-450) Mean Platelet Volume 6.8 FL (6.5-10.1) Neutrophils (%) (Auto) % (45.0-75.0) Lymphocytes (%) (Auto) % (20.0-45.0) Monocytes (%) (Auto) % (1.0-10.0) Eosinophils (%) (Auto) % (0.0-3.0) Basophils (%) (Auto) % (0.0-2.0) Differential Total Cells Counted 100 Neutrophils % (Manual) 82 % (45-75) H Lymphocytes % (Manual) 8 % (20-45) L Monocytes % (Manual) 4 % (1-10) Eosinophils % (Manual) 1 % (0-3) Basophils % (Manual) 0 % (0-2) Band Neutrophils 5 % (0-8) Platelet Estimate Adequate Platelet Morphology Normal Red Blood Cell Morphology Normal Sodium Level 140 MMOL/L (136-145) Potassium Level 4.4 MMOL/L (3.5-5.1) Chloride Level 106 MMOL/L (98-107) Carbon Dioxide Level 27 MMOL/L (21-32) Anion Gap 7 mmol/L (5-15) Blood Urea Nitrogen 10 mg/dL (7-18) Creatinine 0.8 MG/DL (0.55-1.30) Estimat Glomerular Filtration Rate > 60 mL/min (>60) Glucose Level 90 MG/DL (74-106) Calcium Level 9.4 MG/DL (8.5-10.1) Phosphorus Level 2.7 MG/DL (2.5-4.9) Magnesium Level 2.0 MG/DL (1.8-2.4) Total Bilirubin 0.7 MG/DL (0.2-1.0) Aspartate Amino Transf (AST/SGOT) 37 U/L (15-37) Alanine Aminotransferase (ALT/SGPT) 29 U/L (12-78) Alkaline Phosphatase 78 U/L (46-116) C-Reactive Protein, Quantitative 5.3 mg/dL (0.00-0.90) H Pro-B-Type Natriuretic Peptide 2146 pg/mL (0-125) H Total Protein 6.4 G/DL (6.4-8.2) Albumin 2.5 G/DL (3.4-5.0) L Globulin 3.9 g/dL Albumin/Globulin Ratio 0.6 (1.0-2.7) L Lipase 115 U/L (73-393) Current Medications Medications (Trade) Dose Ordered Sig/Kimberley Route PRN Reason Start Time Stop Time Status Last Admin Dose Admin Acetaminophen (Tylenol) 650 mg Q4H PRN ORAL fever 12/25/19 16:30 01/24/20 16:29 12/26/19 04:48 Acetaminophen (Tylenol) 650 mg Q4H PRN RECTAL Mild Pain (Pain Scale 1-3) 12/26/19 15:30 01/25/20 15:29 12/27/19 16:31 Albuterol/ Ipratropium (Albuterol/ Ipratropium) 3 ml Q4H PRN HHN sob 12/31/19 10:00 01/05/20 09:59 Daptomycin 250 mg/ Sodium Chloride 55 ml @ 100 mls/hr Q24H IV 12/29/19 18:00 01/05/20 17:59 01/02/20 17:31 Dextrose 1,000 ml @ 50 mls/hr Q20H IV 12/29/19 12:30 01/28/20 12:29 01/02/20 17:31 Heparin Sodium (Porcine) (Heparin 5000 units/ml) 5,000 units EVERY 12 HOURS SUBQ 12/26/19 09:00 02/09/20 08:59 01/03/20 08:51 Levothyroxine Sodium (Synthroid) 50 mcg DAILY@0630 ORAL 01/03/20 06:30 02/02/20 06:29 01/03/20 06:02 Lorazepam (Ativan 2mg/ml 1ml) 0.5 mg EVERY HOUR PRN IV For Anxiety 12/27/19 22:00 01/03/20 21:59 12/28/19 05:32 Megestrol Acetate (Megace) 400 mg DAILY ORAL 12/30/19 09:00 03/29/20 08:59 01/03/20 08:51 Ondansetron HCl (Zofran) 4 mg Q6H PRN IVP Nausea & Vomiting 12/25/19 16:30 01/24/20 16:29 Potassium Chloride (K-Dur) 20 meq TWICE A DAY ORAL 12/30/19 18:00 03/29/20 17:59 01/03/20 08:51 Quetiapine Fumarate (SEROqueL) 25 mg DAILY ORAL 12/26/19 09:00 02/09/20 08:59 01/03/20 08:51 Temazepam (Restoril) 15 mg HSPRN PRN ORAL Insomnia 12/31/19 15:00 01/07/20 14:59 Trazodone HCl (Desyrel) 25 mg BEDTIME ORAL 12/25/19 21:00 01/24/20 20:59 01/02/20 21:48 Aneta Camacho M.D. Jan 03, 2020 11:48
[2020-01-03 12:00] VITALS: BP 119/69
--- NOTE | 2020-01-03 13:10 | Pulmonology Progress Note ---
Subjective ROS Limited/Unobtainable: No Allergies: Coded Allergies: MORPHINE (Verified Allergy, Unknown, 12/26/19) Patient's SNF notes morphine allergy in RX list Objective Last 24 Hour Vital Signs Date Time Temp Pulse Resp B/P (MAP) Pulse Ox O2 Delivery O2 Flow Rate FiO2 01/03/20 12:00 98.8 86 17 119/69 (86) 94 01/03/20 09:00 Nasal Cannula 3.0 01/03/20 08:36 93 Nasal Cannula 3.0 32 01/03/20 08:00 98.3 83 19 122/61 (81) 93 01/03/20 04:00 98.6 82 20 129/68 (88) 98 01/03/20 00:00 97.5 82 18 125/86 (99) 95 01/02/20 20:57 Nasal Cannula 3.0 01/02/20 20:00 98.1 83 18 129/81 (97) 94 01/02/20 19:54 94 Nasal Cannula 3.0 32 01/02/20 16:00 97.5 85 18 140/71 (94) 95 Intake and Output 01/02/20 01/03/20 19:00 07:00 Output Total 220 ml Balance -220 ml Output Urine Total 220 ml # Voids 2 General Appearance: cachetic, other - bedridden frail elderly female in NAD HEENT: normocephalic, atraumatic Respiratory: chest wall non-tender, lungs clear - with moderate air exchange Cardiovascular: normal peripheral pulses, normal rate Abdomen: normal bowel sounds, soft, non tender Extremities: no edema, pedal pulses normal Neurologic: abnormal gait, alert - forgetful , other - spastic LE Musculoskeletal: atrophy Laboratory Tests 01/03/20 05:40: White Blood Count 9.0#, Red Blood Count 4.15L, Hemoglobin 12.9, Hematocrit 38.9, Mean Corpuscular Volume 94, Mean Corpuscular Hemoglobin 31.1H, Mean Corpuscular Hemoglobin Concent 33.2, Red Cell Distribution Width 11.7, Platelet Count 206, Mean Platelet Volume 6.8, Neutrophils (%) (Auto) , Lymphocytes (%) (Auto) , Monocytes (%) (Auto) , Eosinophils (%) (Auto) , Basophils (%) (Auto) , Differential Total Cells Counted 100, Neutrophils % (Manual) 82H, Lymphocytes % (Manual) 8L, Monocytes % (Manual) 4, Eosinophils % (Manual) 1, Basophils % (Manual) 0, Band Neutrophils 5, Platelet Estimate Adequate, Platelet Morphology Normal, Red Blood Cell Morphology Normal, Sodium Level 140, Potassium Level 4.4, Chloride Level 106, Carbon Dioxide Level 27, Anion Gap 7, Blood Urea Nitrogen 10, Creatinine 0.8, Estimat Glomerular Filtration Rate > 60, Glucose Level 90, Calcium Level 9.4, Phosphorus Level 2.7, Magnesium Level 2.0, Total Bilirubin 0.7, Aspartate Amino Transf (AST/SGOT) 37, Alanine Aminotransferase (ALT/SGPT) 29, Alkaline Phosphatase 78, C-Reactive Protein, Quantitative 5.3H, Pro-B-Type Natriuretic Peptide 2146H, Total Protein 6.4, Albumin 2.5L, Globulin 3.9, Albumin/Globulin Ratio 0.6L, Lipase 115 Current Medications Medications (Trade) Dose Ordered Sig/Kimberley Route PRN Reason Start Time Stop Time Status Last Admin Dose Admin Acetaminophen (Tylenol) 650 mg Q4H PRN ORAL fever 12/25/19 16:30 01/24/20 16:29 12/26/19 04:48 Acetaminophen (Tylenol) 650 mg Q4H PRN RECTAL Mild Pain (Pain Scale 1-3) 12/26/19 15:30 01/25/20 15:29 12/27/19 16:31 Albuterol/ Ipratropium (Albuterol/ Ipratropium) 3 ml Q4H PRN HHN sob 12/31/19 10:00 01/05/20 09:59 Daptomycin 250 mg/ Sodium Chloride 55 ml @ 100 mls/hr Q24H IV 12/29/19 18:00 01/05/20 17:59 01/02/20 17:31 Dextrose 1,000 ml @ 50 mls/hr Q20H IV 12/29/19 12:30 01/28/20 12:29 01/02/20 17:31 Heparin Sodium (Porcine) (Heparin 5000 units/ml) 5,000 units EVERY 12 HOURS SUBQ 12/26/19 09:00 02/09/20 08:59 01/03/20 08:51 Levothyroxine Sodium (Synthroid) 50 mcg DAILY@0630 ORAL 01/03/20 06:30 02/02/20 06:29 01/03/20 06:02 Lorazepam (Ativan 2mg/ml 1ml) 0.5 mg EVERY HOUR PRN IV For Anxiety 12/27/19 22:00 01/03/20 21:59 12/28/19 05:32 Megestrol Acetate (Megace) 400 mg DAILY ORAL 12/30/19 09:00 03/29/20 08:59 01/03/20 08:51 Ondansetron HCl (Zofran) 4 mg Q6H PRN IVP Nausea & Vomiting 12/25/19 16:30 01/24/20 16:29 Potassium Chloride (K-Dur) 20 meq TWICE A DAY ORAL 12/30/19 18:00 03/29/20 17:59 01/03/20 08:51 Quetiapine Fumarate (SEROqueL) 25 mg DAILY ORAL 12/26/19 09:00 02/09/20 08:59 01/03/20 08:51 Temazepam (Restoril) 15 mg HSPRN PRN ORAL Insomnia 12/31/19 15:00 01/07/20 14:59 Trazodone HCl (Desyrel) 25 mg BEDTIME ORAL 12/25/19 21:00 01/24/20 20:59 01/02/20 21:48 Assessment/Plan Problems: (1) Sepsis (2) Altered mental status (3) Anxiety (4) Depression (5) Alzheimer's dementia (6) Poor historian Assessment/Plan wbc better no new events on Pureed diet andujar culture afebrile check electrolytes symptomatic treatment dvt prophylaxis. d/w son extensively, pt's POLST says no artificial feeding pts son considering hospice. I talked to him yesterday and answered all of his questions. Ck Mcclelland MD Jan 03, 2020 13:10
[2020-01-03 16:00] VITALS: BP 117/57
[2020-01-03] MEDS: DAPTOmycin 250 MG in NS 55 ML IV SCH (17:33)
[2020-01-03 20:00] VITALS: BP 123/55
[2020-01-03] MEDS: TraZODone HCl 25 mg tablet ORAL SCH (20:30)
[2020-01-04] VITALS: BP 120/53
[2020-01-04 04:00] VITALS: BP 116/44
[2020-01-04 08:00] VITALS: BP 139/71
[2020-01-04] MEDS: Megace 400mg/10ml Susp ORAL SCH (09:10)
[2020-01-04] MEDS: Heparin 5000 units/ml inj SUBQ SCH ×2 (09:13→20:17)
--- NOTE | 2020-01-04 10:22 | General Progress Note ---
Subjective ROS Limited/Unobtainable: No Allergies: Coded Allergies: MORPHINE (Verified Allergy, Unknown, 12/26/19) Patient's SNF notes morphine allergy in RX list Objective Last 24 Hour Vital Signs Date Time Temp Pulse Resp B/P (MAP) Pulse Ox O2 Delivery O2 Flow Rate FiO2 01/04/20 09:00 Nasal Cannula 3.0 01/04/20 08:00 98.6 78 22 139/71 (93) 94 01/04/20 04:00 99.5 72 18 116/44 (68) 97 01/04/20 00:00 99.6 71 18 120/53 (75) 97 01/03/20 21:47 Nasal Cannula 3.0 01/03/20 21:01 101.7 01/03/20 20:00 101.7 79 18 123/55 (77) 97 01/03/20 19:36 94 Nasal Cannula 3.0 32 01/03/20 16:00 98.9 87 18 117/57 (77) 97 01/03/20 12:00 98.8 86 17 119/69 (86) 94 Intake and Output 01/03/20 01/04/20 19:00 07:00 Intake Total 100 ml Output Total 400 ml Balance 100 ml -400 ml Other 100 ml Output Urine Total 400 ml # Bowel Movements 2 Height (Feet): 5 Height (Inches): 4.00 Weight (Pounds): 130 General Appearance: lethargic EENT: normal ENT inspection Neck: supple Cardiovascular: normal rate Respiratory/Chest: decreased breath sounds Abdomen: hypoactive bowel sounds Extremities: non-tender Assessment/Plan Assessment/Plan: 1. Alzheimer disease. 2. Anxiety and depression. 3. Hypercholesterolemia. 4. Hypothyroidism. 5. FTT on puree diet poor po intake dietitian in put appreciated needs peg but discussion with family still on going regarding hospice Vs PEG placement will fu Kilo Romero MD Jan 04, 2020 10:22
--- NOTE | 2020-01-04 10:35 | Nephrology Progress Note ---
Assessment/Plan Problem List: (1) Dehydration (2) Electrolyte imbalance (3) Alzheimer's dementia Assessment Electrolyte imbalance Toxic metabolic encephalopathy Sepsis Alzheimer's dementia, depression, anxiety Plan January 03: No blood work was done today. Continue same management. January 02: Renal parameters stable. White blood cells now within normal limit. Continue per consultants. Chest x-ray: Left mid and lower lung atelectasis , Possible developing retrocardiac consolidation, could indicate pneumonia if real January 01: Renal parameters stable. White blood cells shot up to 18,000. Pulmonary source suspected. Will order chest x-ray and UA. Stable from renal standpoint of view. December 31: Renal parameters and electrolytes stable. Continue as is. December 30: No labs drawn today. Stable from renal standpoint of view. Will check lab tomorrow. December 29: Abnormal electrolytes addressed. Stable from renal standpoint today. Previously: KCl 20 M EQ today12/28 Change IV to D5W K-Phos IV given12/27 Antibiotics Patient DNR/DNI No artificial means of feeding at this time Continue current care Subjective ROS Limited/Unobtainable: No Constitutional: Reports: malaise Objective Objective Last 24 Hour Vital Signs Date Time Temp Pulse Resp B/P (MAP) Pulse Ox O2 Delivery O2 Flow Rate FiO2 01/04/20 09:00 Nasal Cannula 3.0 01/04/20 08:00 98.6 78 22 139/71 (93) 94 01/04/20 04:00 99.5 72 18 116/44 (68) 97 01/04/20 00:00 99.6 71 18 120/53 (75) 97 01/03/20 21:47 Nasal Cannula 3.0 01/03/20 21:01 101.7 01/03/20 20:00 101.7 79 18 123/55 (77) 97 01/03/20 19:36 94 Nasal Cannula 3.0 32 01/03/20 16:00 98.9 87 18 117/57 (77) 97 01/03/20 12:00 98.8 86 17 119/69 (86) 94 Intake and Output 01/03/20 01/04/20 19:00 07:00 Intake Total 100 ml 50 ml Output Total 400 ml Balance 100 ml -350 ml Intake IV Total 50 ml Other 100 ml Output Urine Total 400 ml # Bowel Movements 2 Height (Feet): 5 Height (Inches): 4.00 Weight (Pounds): 130 General Appearance: no apparent distress Cardiovascular: normal rate Respiratory/Chest: decreased breath sounds Abdomen: soft Objective No change Daniel Mathews MD Jan 04, 2020 10:35
--- NOTE | 2020-01-04 11:42 | Infectious Diseases Prog Note ---
Assessment/Plan Assessment: Sepsis UTI PNA- report of bright red blood upon suctioning per RN- no PE- l ikely aspiration PNA -12/25 CTA chest: Enhancement is not very robust and there is some motion. No apparent central pulmonary embolus. Bibasilar consolidation. Irregular opacities/nodular infiltrates in the lingula, right middle and right lower lobes. rapid COVID PCR neg -12/26 u/a no pyuria,n it +, leuk +2 -12/25 ucx >100k VRE -12/24 CXR: Bilateral lower lobe atelectasis versus infiltrate. u/a 30-40, nit neg, leuk +2; ucx Organism 1 MIXED UROGENITAL CONTAMINANTS COLONY COUNT: 10,000 - 20,000 CFU/ML rapid COVID PCR neg Influenza screen neg Bcx neg Fever; recurrent Leukocytosis; increasing- SP -01/01 CXR:Left mid and lower lung atelectasis. Possible developing retrocard iac consolidation, could indicate pneumonia if real ua/ neg Acute encephalopathy -CT head: No acute intracranial process.nvolutional changes with small vessel disease. Alzheimer' disease MDD HLD hypothyroidism anxiety disorder SNF resident ([facility]) Plan: - IV Daptomycin #7/7 for VRE UTI -monitor CPK -12/31 SP Cefepime #8 -12/28 SP IV Vancomycin #5 -12/24 SP Ceftriaxone x1, Azithromycin x1 -f/u cx -Monitor CBC/CMP, temperatures -f/u sp cx, TB spot -aspiration precautions -DNR/DNI -Bcx x2, CXR, sp cx Thank you for consulting [facility]. Will continue to follow along with you. Discussed with RN. Subjective Allergies: Coded Allergies: MORPHINE (Verified Allergy, Unknown, 12/26/19) Patient's SNF notes morphine allergy in RX list Tm 101.3 Objective Last 24 Hour Vital Signs Date Time Temp Pulse Resp B/P (MAP) Pulse Ox O2 Delivery O2 Flow Rate FiO2 01/04/20 09:00 Nasal Cannula 3.0 01/04/20 08:00 98.6 78 22 139/71 (93) 94 01/04/20 04:00 99.5 72 18 116/44 (68) 97 01/04/20 00:00 99.6 71 18 120/53 (75) 97 01/03/20 21:47 Nasal Cannula 3.0 01/03/20 21:01 101.7 01/03/20 20:00 101.7 79 18 123/55 (77) 97 01/03/20 19:36 94 Nasal Cannula 3.0 32 01/03/20 16:00 98.9 87 18 117/57 (77) 97 01/03/20 12:00 98.8 86 17 119/69 (86) 94 Height (Feet): 5 Height (Inches): 4.00 Weight (Pounds): 130 General Appearance: alert, moderate distress - Confused, thin Head: atraumatic Eyes: bilateral eye normal inspection ENT: normal ENT inspection, moist mucus membranes Neck: normal inspection, supple Respiratory: normal inspection, decreased breath sounds, crackles - Basilar Cardiovascular #1: regular rate, rhythm, no edema Gastrointestinal: normal inspection, normal bowel sounds, soft Microbiology Date/Time Source Procedure Growth Status 01/02/20 10:25 Urine,Clean Catch Urine Culture - Preliminary YEAST Resulted Current Medications Medications (Trade) Dose Ordered Sig/Kimberley Route PRN Reason Start Time Stop Time Status Last Admin Dose Admin Acetaminophen (Tylenol) 650 mg Q4H PRN ORAL fever 12/25/19 16:30 01/24/20 16:29 01/03/20 20:31 Acetaminophen (Tylenol) 650 mg Q4H PRN RECTAL Mild Pain (Pain Scale 1-3) 12/26/19 15:30 01/25/20 15:29 12/27/19 16:31 Albuterol/ Ipratropium (Albuterol/ Ipratropium) 3 ml Q4H PRN HHN sob 12/31/19 10:00 01/05/20 09:59 Daptomycin 250 mg/ Sodium Chloride 55 ml @ 100 mls/hr Q24H IV 12/29/19 18:00 01/05/20 17:59 01/03/20 17:33 Dextrose 1,000 ml @ 50 mls/hr Q20H IV 12/29/19 12:30 01/28/20 12:29 01/04/20 09:10 Heparin Sodium (Porcine) (Heparin 5000 units/ml) 5,000 units EVERY 12 HOURS SUBQ 12/26/19 09:00 02/09/20 08:59 01/04/20 09:13 Levothyroxine Sodium (Synthroid) 50 mcg DAILY@0630 ORAL 01/03/20 06:30 02/02/20 06:29 01/03/20 06:02 Megestrol Acetate (Megace) 400 mg DAILY ORAL 12/30/19 09:00 03/29/20 08:59 01/04/20 09:10 Ondansetron HCl (Zofran) 4 mg Q6H PRN IVP Nausea & Vomiting 12/25/19 16:30 01/24/20 16:29 Potassium Chloride (K-Dur) 20 meq TWICE A DAY ORAL 12/30/19 18:00 03/29/20 17:59 01/04/20 09:10 Quetiapine Fumarate (SEROqueL) 25 mg DAILY ORAL 12/26/19 09:00 02/09/20 08:59 01/04/20 09:10 Temazepam (Restoril) 15 mg HSPRN PRN ORAL Insomnia 12/31/19 15:00 01/07/20 14:59 Trazodone HCl (Desyrel) 25 mg BEDTIME ORAL 12/25/19 21:00 01/24/20 20:59 01/03/20 20:30 Aneta Camacho M.D. Jan 04, 2020 11:42
--- NOTE | 2020-01-04 11:52 | Pulmonology Progress Note ---
Subjective ROS Limited/Unobtainable: No Interval Events: looks comfortable Allergies: Coded Allergies: MORPHINE (Verified Allergy, Unknown, 12/26/19) Patient's SNF notes morphine allergy in RX list Objective Last 24 Hour Vital Signs Date Time Temp Pulse Resp B/P (MAP) Pulse Ox O2 Delivery O2 Flow Rate FiO2 01/04/20 09:00 Nasal Cannula 3.0 01/04/20 08:00 98.6 78 22 139/71 (93) 94 01/04/20 04:00 99.5 72 18 116/44 (68) 97 01/04/20 00:00 99.6 71 18 120/53 (75) 97 01/03/20 21:47 Nasal Cannula 3.0 01/03/20 21:01 101.7 01/03/20 20:00 101.7 79 18 123/55 (77) 97 01/03/20 19:36 94 Nasal Cannula 3.0 32 01/03/20 16:00 98.9 87 18 117/57 (77) 97 01/03/20 12:00 98.8 86 17 119/69 (86) 94 Intake and Output 01/03/20 01/04/20 19:00 07:00 Intake Total 100 ml 50 ml Output Total 400 ml Balance 100 ml -350 ml Intake IV Total 50 ml Other 100 ml Output Urine Total 400 ml # Bowel Movements 2 General Appearance: cachetic, other - bedridden frail elderly female in NAD HEENT: normocephalic, atraumatic Respiratory: chest wall non-tender, lungs clear - with moderate air exchange Cardiovascular: normal peripheral pulses, normal rate Abdomen: normal bowel sounds, soft, non tender Extremities: no edema, pedal pulses normal Neurologic: abnormal gait, alert - forgetful , other - spastic LE Musculoskeletal: atrophy Microbiology Date/Time Source Procedure Growth Status 01/02/20 10:25 Urine,Clean Catch Urine Culture - Preliminary YEAST Resulted Current Medications Medications (Trade) Dose Ordered Sig/Kimberley Route PRN Reason Start Time Stop Time Status Last Admin Dose Admin Acetaminophen (Tylenol) 650 mg Q4H PRN ORAL fever 12/25/19 16:30 01/24/20 16:29 01/03/20 20:31 Acetaminophen (Tylenol) 650 mg Q4H PRN RECTAL Mild Pain (Pain Scale 1-3) 12/26/19 15:30 01/25/20 15:29 12/27/19 16:31 Albuterol/ Ipratropium (Albuterol/ Ipratropium) 3 ml Q4H PRN HHN sob 12/31/19 10:00 01/05/20 09:59 Daptomycin 250 mg/ Sodium Chloride 55 ml @ 100 mls/hr Q24H IV 12/29/19 18:00 01/05/20 17:59 01/03/20 17:33 Dextrose 1,000 ml @ 50 mls/hr Q20H IV 12/29/19 12:30 01/28/20 12:29 01/04/20 09:10 Heparin Sodium (Porcine) (Heparin 5000 units/ml) 5,000 units EVERY 12 HOURS SUBQ 12/26/19 09:00 02/09/20 08:59 01/04/20 09:13 Levothyroxine Sodium (Synthroid) 50 mcg DAILY@0630 ORAL 01/03/20 06:30 02/02/20 06:29 01/03/20 06:02 Megestrol Acetate (Megace) 400 mg DAILY ORAL 12/30/19 09:00 03/29/20 08:59 01/04/20 09:10 Ondansetron HCl (Zofran) 4 mg Q6H PRN IVP Nausea & Vomiting 12/25/19 16:30 01/24/20 16:29 Potassium Chloride (K-Dur) 20 meq TWICE A DAY ORAL 12/30/19 18:00 03/29/20 17:59 01/04/20 09:10 Quetiapine Fumarate (SEROqueL) 25 mg DAILY ORAL 12/26/19 09:00 02/09/20 08:59 01/04/20 09:10 Temazepam (Restoril) 15 mg HSPRN PRN ORAL Insomnia 12/31/19 15:00 01/07/20 14:59 Trazodone HCl (Desyrel) 25 mg BEDTIME ORAL 12/25/19 21:00 01/24/20 20:59 01/03/20 20:30 Assessment/Plan Problems: (1) Sepsis (2) Altered mental status (3) Anxiety (4) Depression (5) Alzheimer's dementia (6) Poor historian Assessment/Plan wbc better no new events on Pureed diet andujar culture afebrile check electrolytes symptomatic treatment dvt prophylaxis. dc to assisted living with hospice Ck Mcclelland MD Jan 04, 2020 11:52
[2020-01-04] MEDS ORDERED: ATIVAN0.5 MG ORAL (11:55)
[2020-01-04 12:00] VITALS: BP 151/83
[2020-01-04 16:00] VITALS: BP 156/66
[2020-01-04] MEDS: Acetaminophen 650 MG SUPP RECTAL PRN (16:41)
[2020-01-04] MEDS: DAPTOmycin 250 MG in NS 55 ML IV SCH (17:27)
[2020-01-04 20:00] VITALS: BP 123/61
[2020-01-04] MEDS: TraZODone HCl 25 mg tablet ORAL SCH (20:17)
[2020-01-05] VITALS: BP 151/100
[2020-01-05 04:00] VITALS: BP 129/69
[2020-01-05 08:00] VITALS: BP 122/70
--- NOTE | 2020-01-05 08:51 | Nephrology Progress Note ---
Assessment/Plan Problem List: (1) Dehydration (2) Electrolyte imbalance (3) Alzheimer's dementia Assessment Electrolyte imbalance Toxic metabolic encephalopathy Sepsis Alzheimer's dementia, depression, anxiety Plan January 04: Status quo. No labs drawn today. Continue current management. January 03: No blood work was done today. Continue same management. January 02: Renal parameters stable. White blood cells now within normal limit. Continue per consultants. Chest x-ray: Left mid and lower lung atelectasis , Possible developing retrocardiac consolidation, could indicate pneumonia if real January 01: Renal parameters stable. White blood cells shot up to 18,000. Pulmonary source suspected. Will order chest x-ray and UA. Stable from renal standpoint of view. December 31: Renal parameters and electrolytes stable. Continue as is. December 30: No labs drawn today. Stable from renal standpoint of view. Will check lab tomorrow. December 29: Abnormal electrolytes addressed. Stable from renal standpoint today. Previously: KCl 20 M EQ today12/28 Change IV to D5W K-Phos IV given12/27 Antibiotics Patient DNR/DNI No artificial means of feeding at this time Continue current care Subjective ROS Limited/Unobtainable: No Constitutional: Reports: malaise, weakness Objective Objective Last 24 Hour Vital Signs Date Time Temp Pulse Resp B/P (MAP) Pulse Ox O2 Delivery O2 Flow Rate FiO2 01/05/20 04:00 97.7 71 25 129/69 (89) 92 01/05/20 00:00 98.1 81 24 151/100 (117) 92 01/04/20 21:52 Nasal Cannula 3.0 01/04/20 20:00 97.7 82 25 123/61 (81) 92 01/04/20 19:36 92 Nasal Cannula 4.0 36 01/04/20 17:11 99.0 01/04/20 16:00 102.6 89 21 156/66 (96) 92 01/04/20 12:00 97.9 82 20 151/83 (105) 94 01/04/20 09:00 Nasal Cannula 3.0 Intake and Output 01/04/20 01/05/20 19:00 07:00 Intake Total 610 ml Balance 610 ml Intake IV Total 610 ml # Voids 2 2 # Bowel Movements 1 1 No blood drawn today Height (Feet): 5 Height (Inches): 4.00 Weight (Pounds): 130 General Appearance: no apparent distress Objective No change Daniel Mathews MD Jan 05, 2020 08:51
[2020-01-05] MEDS: Megace 400mg/10ml Susp ORAL SCH (09:41)
[2020-01-05] MEDS: Heparin 5000 units/ml inj SUBQ SCH (10:06)
--- NOTE | 2020-01-05 11:29 | Infectious Diseases Prog Note ---
Assessment/Plan Assessment: Sepsis UTI PNA- report of bright red blood upon suctioning per RN- no PE- l ikely aspiration PNA -12/25 CTA chest: Enhancement is not very robust and there is some motion. No apparent central pulmonary embolus. Bibasilar consolidation. Irregular opacities/nodular infiltrates in the lingula, right middle and right lower lobes. rapid COVID PCR neg -12/26 u/a no pyuria,n it +, leuk +2 -12/25 ucx >100k VRE -12/24 CXR: Bilateral lower lobe atelectasis versus infiltrate. u/a 30-40, nit neg, leuk +2; ucx Organism 1 MIXED UROGENITAL CONTAMINANTS COLONY COUNT: 10,000 - 20,000 CFU/ML rapid COVID PCR neg Influenza screen neg Bcx neg Fever; recurrent Leukocytosis; increasing- SP -01/01 CXR:Left mid and lower lung atelectasis. Possible developing retrocard iac consolidation, could indicate pneumonia if real ua/ neg BCx NTD Acute encephalopathy -CT head: No acute intracranial process.nvolutional changes with small vessel disease. Alzheimer' disease MDD HLD hypothyroidism anxiety disorder SNF resident ([facility]) Plan: -Start empiric Zosyn -01/03 SP Daptomycin #7 -12/31 SP Cefepime #8 -12/28 SP IV Vancomycin #5 -12/24 SP Ceftriaxone x1, Azithromycin x1 -f/u cx -Monitor CBC/CMP, temperatures -f/u sp cx, TB spot -aspiration precautions -DNR/DNI -f/u Bcx x2, CXR, sp cx -u/a w/ reflex Thank you for consulting [facility]. Will continue to follow along with you. Discussed with RN. Subjective Allergies: Coded Allergies: MORPHINE (Verified Allergy, Unknown, 12/26/19) Patient's SNF notes morphine allergy in RX list Tm 101.3 Objective Last 24 Hour Vital Signs Date Time Temp Pulse Resp B/P (MAP) Pulse Ox O2 Delivery O2 Flow Rate FiO2 01/05/20 04:00 97.7 71 25 129/69 (89) 92 01/05/20 00:00 98.1 81 24 151/100 (117) 92 01/04/20 21:52 Nasal Cannula 3.0 01/04/20 20:00 97.7 82 25 123/61 (81) 92 01/04/20 19:36 92 Nasal Cannula 4.0 36 01/04/20 17:11 99.0 01/04/20 16:00 102.6 89 21 156/66 (96) 92 01/04/20 12:00 97.9 82 20 151/83 (105) 94 Height (Feet): 5 Height (Inches): 4.00 Weight (Pounds): 130 General Appearance: alert, moderate distress - Confused, thin Head: atraumatic Eyes: bilateral eye normal inspection ENT: normal ENT inspection, moist mucus membranes Neck: normal inspection, supple Respiratory: normal inspection, decreased breath sounds, crackles - Basilar Cardiovascular #1: regular rate, rhythm, no edema Gastrointestinal: normal inspection, normal bowel sounds, soft Microbiology Date/Time Source Procedure Growth Status 01/02/20 15:00 Blood Blood Culture - Preliminary NO GROWTH AFTER 48 HOURS Resulted 01/02/20 14:50 Blood Blood Culture - Preliminary NO GROWTH AFTER 48 HOURS Resulted Current Medications Medications (Trade) Dose Ordered Sig/Kimberley Route PRN Reason Start Time Stop Time Status Last Admin Dose Admin Acetaminophen (Tylenol) 650 mg Q4H PRN ORAL fever 12/25/19 16:30 01/24/20 16:29 01/03/20 20:31 Acetaminophen (Tylenol) 650 mg Q4H PRN RECTAL Mild Pain (Pain Scale 1-3) 12/26/19 15:30 01/25/20 15:29 01/04/20 16:41 Daptomycin 250 mg/ Sodium Chloride 55 ml @ 100 mls/hr Q24H IV 12/29/19 18:00 01/05/20 17:59 01/04/20 17:27 Dextrose 1,000 ml @ 50 mls/hr Q20H IV 12/29/19 12:30 01/28/20 12:29 01/05/20 03:58 Heparin Sodium (Porcine) (Heparin 5000 units/ml) 5,000 units EVERY 12 HOURS SUBQ 12/26/19 09:00 02/09/20 08:59 01/05/20 10:06 Levothyroxine Sodium (Synthroid) 50 mcg DAILY@0630 ORAL 01/03/20 06:30 02/02/20 06:29 01/03/20 06:02 Megestrol Acetate (Megace) 400 mg DAILY ORAL 12/30/19 09:00 2/4/21 08:59 01/05/20 09:41 Ondansetron HCl (Zofran) 4 mg Q6H PRN IVP Nausea & Vomiting 12/25/19 16:30 01/24/20 16:29 Potassium Chloride (K-Dur) 20 meq TWICE A DAY ORAL 12/30/19 18:00 03/29/20 17:59 01/05/20 09:41 Quetiapine Fumarate (SEROqueL) 25 mg DAILY ORAL 12/26/19 09:00 02/09/20 08:59 01/05/20 09:41 Temazepam (Restoril) 15 mg HSPRN PRN ORAL Insomnia 12/31/19 15:00 01/07/20 14:59 Trazodone HCl (Desyrel) 25 mg BEDTIME ORAL 12/25/19 21:00 01/24/20 20:59 01/03/20 20:30 Aneta Camacho M.D. Jan 05, 2020 11:29
[2020-01-05 12:00] VITALS: BP 118/87
--- NOTE | 2020-01-05 12:15 | Pulmonology Progress Note ---
Subjective ROS Limited/Unobtainable: Yes Interval Events: looks comfortable Allergies: Coded Allergies: MORPHINE (Verified Allergy, Unknown, 12/26/19) Patient's SNF notes morphine allergy in RX list Objective Last 24 Hour Vital Signs Date Time Temp Pulse Resp B/P (MAP) Pulse Ox O2 Delivery O2 Flow Rate FiO2 01/05/20 09:00 Nasal Cannula 3.0 01/05/20 08:00 97.5 70 21 122/70 (87) 92 01/05/20 04:00 97.7 71 25 129/69 (89) 92 01/05/20 00:00 98.1 81 24 151/100 (117) 92 01/04/20 21:52 Nasal Cannula 3.0 01/04/20 20:00 97.7 82 25 123/61 (81) 92 01/04/20 19:36 92 Nasal Cannula 4.0 36 01/04/20 17:11 99.0 01/04/20 16:00 102.6 89 21 156/66 (96) 92 Intake and Output 01/04/20 01/05/20 19:00 07:00 Intake Total 610 ml Balance 610 ml Intake IV Total 610 ml # Voids 2 2 # Bowel Movements 1 1 General Appearance: cachetic, other - bedridden frail elderly female in NAD HEENT: normocephalic, atraumatic Respiratory: chest wall non-tender, lungs clear - with moderate air exchange Cardiovascular: normal peripheral pulses, normal rate Abdomen: normal bowel sounds, soft, non tender Extremities: no edema, pedal pulses normal Neurologic: abnormal gait, alert - forgetful , other - spastic LE Musculoskeletal: atrophy Microbiology Date/Time Source Procedure Growth Status 01/02/20 15:00 Blood Blood Culture - Preliminary NO GROWTH AFTER 48 HOURS Resulted 01/02/20 14:50 Blood Blood Culture - Preliminary NO GROWTH AFTER 48 HOURS Resulted Current Medications Medications (Trade) Dose Ordered Sig/Kimberley Route PRN Reason Start Time Stop Time Status Last Admin Dose Admin Acetaminophen (Tylenol) 650 mg Q4H PRN ORAL fever 12/25/19 16:30 01/24/20 16:29 01/03/20 20:31 Acetaminophen (Tylenol) 650 mg Q4H PRN RECTAL Mild Pain (Pain Scale 1-3) 12/26/19 15:30 01/25/20 15:29 01/04/20 16:41 Dextrose 1,000 ml @ 50 mls/hr Q20H IV 12/29/19 12:30 01/28/20 12:29 01/05/20 03:58 Heparin Sodium (Porcine) (Heparin 5000 units/ml) 5,000 units EVERY 12 HOURS SUBQ 12/26/19 09:00 02/09/20 08:59 01/05/20 10:06 Levothyroxine Sodium (Synthroid) 50 mcg DAILY@0630 ORAL 01/03/20 06:30 02/02/20 06:29 01/03/20 06:02 Megestrol Acetate (Megace) 400 mg DAILY ORAL 12/30/19 09:00 03/29/20 08:59 01/05/20 09:41 Ondansetron HCl (Zofran) 4 mg Q6H PRN IVP Nausea & Vomiting 12/25/19 16:30 01/24/20 16:29 Piperacillin Sod/ Tazobactam Sod 3.375 gm/Sodium Chloride 110 ml @ 27.5 mls/hr EVERY 8 HOURS IVPB 01/05/20 14:00 01/10/20 13:59 Potassium Chloride (K-Dur) 20 meq TWICE A DAY ORAL 12/30/19 18:00 03/29/20 17:59 01/05/20 09:41 Quetiapine Fumarate (SEROqueL) 25 mg DAILY ORAL 12/26/19 09:00 02/09/20 08:59 01/05/20 09:41 Temazepam (Restoril) 15 mg HSPRN PRN ORAL Insomnia 12/31/19 15:00 01/07/20 14:59 Trazodone HCl (Desyrel) 25 mg BEDTIME ORAL 12/25/19 21:00 01/24/20 20:59 01/03/20 20:30 Assessment/Plan Problems: (1) Sepsis (2) Altered mental status (3) Anxiety (4) Depression (5) Alzheimer's dementia (6) Poor historian Assessment/Plan looks comfortable no new events on Pureed diet andujar culture afebrile check electrolytes symptomatic treatment dvt prophylaxis. dc to assisted living with hospice today Ck Mcclelland MD Jan 05, 2020 12:15
[2020-01-05] MEDS ORDERED: Piperacillin/Tazobactam 3.375 GM in NS 110 ML IVPB SCH (14:00)
--- NOTE | 2020-01-05 14:26 | Diagnostic Imaging Report ---
Indication: Cough Technique: One view of the chest Comparison: 01/02/2020 Findings: There is some atelectasis at the left lung base. Lungs and pleural spaces are otherwise clear. The heart size is normal. Upper mediastinum is unremarkable. There is no significant interim change Impression: No acute process
--- NOTE | 2020-01-05 15:21 | General Progress Note ---
Subjective ROS Limited/Unobtainable: No Allergies: Coded Allergies: MORPHINE (Verified Allergy, Unknown, 12/26/19) Patient's SNF notes morphine allergy in RX list Objective Last 24 Hour Vital Signs Date Time Temp Pulse Resp B/P (MAP) Pulse Ox O2 Delivery O2 Flow Rate FiO2 01/05/20 12:00 98.2 74 20 118/87 (97) 95 01/05/20 09:00 Nasal Cannula 3.0 01/05/20 08:00 97.5 70 21 122/70 (87) 92 01/05/20 04:00 97.7 71 25 129/69 (89) 92 01/05/20 00:00 98.1 81 24 151/100 (117) 92 01/04/20 21:52 Nasal Cannula 3.0 01/04/20 20:00 97.7 82 25 123/61 (81) 92 01/04/20 19:36 92 Nasal Cannula 4.0 36 01/04/20 17:11 99.0 01/04/20 16:00 102.6 89 21 156/66 (96) 92 Intake and Output 01/04/20 01/05/20 19:00 07:00 Intake Total 610 ml Balance 610 ml Intake IV Total 610 ml # Voids 2 2 # Bowel Movements 1 1 Height (Feet): 5 Height (Inches): 4.00 Weight (Pounds): 130 General Appearance: no apparent distress EENT: normal ENT inspection Neck: supple Cardiovascular: normal rate Respiratory/Chest: decreased breath sounds Abdomen: normal bowel sounds, non tender, soft Extremities: non-tender Assessment/Plan Assessment/Plan: 1. Alzheimer disease. 2. Anxiety and depression. 3. Hypercholesterolemia. 4. Hypothyroidism. 5. FTT on puree diet poor po intake dietitian in put appreciated going to hospice will Kilo Ferrari MD Jan 05, 2020 15:21
--- NOTE | 2020-01-05 15:55 | Internal Med Progress Note ---
Subjective Physician Name Johnnie Hollingsworth Attending Physician Ck Mcclelland MD Allergies: Coded Allergies: MORPHINE (Verified Allergy, Unknown, 12/26/19) Patient's SNF notes morphine allergy in RX list Subjective awake, responsive but confuse , decreased oral intake, no acute distress. Objective Last Vital Signs Date Time Temp Pulse Resp B/P (MAP) Pulse Ox O2 Delivery O2 Flow Rate FiO2 01/05/20 12:00 98.2 74 20 118/87 (97) 95 01/05/20 09:00 Nasal Cannula 3.0 01/04/20 19:36 36 Intake and Output 01/04/20 01/05/20 19:00 07:00 Intake Total 610 ml Balance 610 ml Intake IV Total 610 ml # Voids 2 2 # Bowel Movements 1 1 Objective General: No acute distress, awake and response but confused. HEENT: NCAT, sclera anicteric, PERRL, EOMI. Neck: Supple, no significant jugular venous distention, Lungs: Fair inspiratory effort, decreased air at the bas, no Wheeze or Rales. Heart: Regular rate and rhythm, normal S1/S2, no murmur. Abdomen: soft, nontender, nondistended. Normoactive bowel sounds. / Rectal: Refused and deferred. Extremities: No Cyanosis , clubbing or edema. Neuro: A&O x 2, Able to move upper extremities, weakness bilateral lower extremities. Skin: warm, no rash. Psych: Depressed mood. Assessment/Plan Assessment/Plan Sepsis UTI Possible aspiration pneumonia Fever; imporving Acute encephalopathy Alzheimer' disease MDD HLD hypothyroidism Anxiety disorder SNF resident ([facility]) Plan: Abx: IV Vancomycin and IV Daptomycin CODE STATUS: DNR/DNI DVT prophylaxis: Heparin subcu bedside swallow study, start on a pure diet. monitor laboratory and cultures. Dr. Mcclelland: pulmonary / critical care Dr. Santizo: infection disease Dr. Mathews: Nephrology POLST says no artificial feeding DC to assisted living with hospice. Johnnie Hollingsworth MD Jan 05, 2020 15:55
== END 2020-01-05 15:25 | DRG 871 ==
LOC: EDBD 10:50 → EMR 12:45 → EDBEDREQ 13:27 → 2E 13:48 → 4E 12-27 20:30
DX: A41.9 Sepsis, unspecified organism (principal); J69.0 Pneumonitis due to inhalation of food and vomit; G92 Toxic encephalopathy; N39.0 Urinary tract infection, site not specified; E46 Unspecified protein-calorie malnutrition; G30.9 Alzheimer's disease, unspecified; F02.80 Dementia in other diseases classified elsewhere, unspecified severity, without behavioral disturbance, psychotic disturbance, mood disturbance, and anxiety; F32.9 Major depressive disorder, single episode, unspecified; F41.9 Anxiety disorder, unspecified; E78.5 Hyperlipidemia, unspecified; E03.9 Hypothyroidism, unspecified; E87.8 Other disorders of electrolyte and fluid balance, not elsewhere classified; E86.0 Dehydration; R62.7 Adult failure to thrive; Z68.22 Body mass index [BMI] 22.0-22.9, adult; R13.10 Dysphagia, unspecified
CPT/HCPCS: 36415; 70450; 71045; 71275; 80048; 80053; 80076; 80202; 81001; 81003; 82248; 82270; 82550; 82607; 82746; 82977; 83036; 83605; 83690; 83735; 83880; 84100; 84439; 84443; 84484; 84550; 85007; 85025; 85651; 86140; 86710; 87040; 87070; 87081; 87086; 87181; 87205; 93005; 94640; 94664; 96365; 96368; 99285; J8499; U0002